=== PATIENT | female | born 1990 | race African-American/Black ===

== ENCOUNTER 2022-07-20 17:54 | Emergency (ER) | payer OTHER, SELFPAY ==
--- NOTE | ~2022-07-20 | XR_ITS ---
EXAMINATION: XR chest 2V Exam Date/Time: 07/20/2022 18:30 CDT HISTORY: cp Comparison: None available. RESULT: Lines, tubes, and devices: None. Lungs and pleura: Linear scar/atelectasis in the left lower lung. Calcified granuloma in the right l ower lung. Cardiomediastinal silhouette: Unremarkable. Other: No acute osseous or upper abdominal finding. IMPRESSION: No acute cardiopulmonary process. Reviewed, dictated and finalized at location K.
--- NOTE | 2022-07-20 17:57 | ECG_ITS ---
Measurements Intervals [place] Rate: 60 P: 38 LA: 178 QRS: 19 QRSD: 88 T: 24 QT: 386 QTc: 386 Interpretive Statements SINUS RHYTHM WITH SINUS ARRHYTHMIA NO PREVIOUS ECG AVAILABLE FOR COMPARISON Electronically Signed On 07-21-2022 17:59:12 CDT by Felipe Anna M.D.
[2022-07-20 18:04] VITALS: BP 138/92; PULSE 64; RESP 18; TEMP 36.6; O2SAT 100
[2022-07-20 18:21] LABS: Basophils Percent Auto 0.3 % (0.2-1.2); Eosinophils Absolute Auto 0.3 K/mm3 (0-0.3); Eosinophils Percent Auto 3.4 % (0-4.4); Hematocrit 32.5 % (37.0-47.0); Hemoglobin 11.4 g/dL (12.0-15.0); Immature Granulocyte Absolute 0.05 K/mm3 (0.00-0.031); Immature Granulocyte Percent A 0.5 % (0-0.5); Lymphocytes Absolute Auto 2.35 K/mm3 (0.9-3.2); Lymphocytes Percent Auto 24.4 % (18.3-44.2); Mean Corpuscular HGB Conc 35.1 g/dl (32-36); Mean Corpuscular Hemoglobin 30.3 pg (26-34); Mean Corpuscular Volume 86.4 fl (80-100); Mean Platelet Volume 10.8 fl (7.4-10.4); Monocytes Absolute Auto 0.6 K/mm3 (0.1-0.6); Monocytes Percent Auto 6.1 % (2.6-8.5); Neutrophils Absolute Auto 6.3 K/mm3 (1.3-6.7); Neutrophils Percent Auto 65.3 % (45.5-73.1); Platelet Count Result 253 k/mm3 (150-375); Red Blood Count 3.76 M/mm3 (4.2-5.4); Red Cell Distribution Width 15.8 % (11.5-14.5); White Blood Count 9.6 K/mm3 (4.5-10.0)
[2022-07-20 18:32] LABS: INR 1.2; Prothrombin Time 14.2 Seconds (11.1-14.7)
[2022-07-20 18:33] LABS: Partial Thromboplastin Time 33.2 SECONDS (22.3-36.8)
[2022-07-20 18:36] LABS: Alanine Aminotransferase 12 U/L (6-35); Alkaline Phosphatase 78 U/L (38-126); Anion Gap 3 mmol/L (8-16); Aspartate Amino Transferase 21 U/L (14-36); Bilirubin,Total 0.7 mg/dL (0.2-1.3); Blood Urea Nitrogen 7 mg/dL (7-17); Calcium 8.5 mg/dL (8.4-10.2); Carbon Dioxide 30 mmol/L (22-30); Chloride 104 mmol/L (98-107); Estimated CRCL calculation 178 ml/min; Estimated Glomerular Filt Rate > 60; Glucose 91 mg/dL (65-110); Lipase 114 U/L (23-300); Sodium 137 mmol/L (137-145)
[2022-07-20 18:50] LABS: Troponin I < 0.012 ng/mL (0.000-0.034)
--- NOTE | 2022-07-20 19:04 | ED.CHESTPAIN ---
HPI - Chest Pain General Chief Complaint: Chest Pain Stated Complaint: chest pain Time Seen by Provider: 07/20/22 18:17 Source: patient Mode of arrival: ambulatory Limitations: no limitations History of Present Illness HPI narrative: 31-year-old otherwise healthy here with complaints of epigastric pain for last 2 to 3 days. She states its constant in nature nonradiating. She denies any shortness of breath, cough, nausea or vomiting. MD complaint: chest pain Onset (ago): day(s) (2) Timing of current episode: constant Pain location: epigastric Pain radiation: none Quality: aching Exacerbating factors: nothing Treatment prior to arrival: none Related Data Allergies Allergy/AdvReac Type Severity Reaction Status Date / Time Penicillins Allergy Hives Verified 07/20/22 18:22 Review of Systems Review of Systems: All systems reviewed & are unremarkable except as noted in HPI and below Constitutional: Constitutional: Reports no additional constitutional complaints Eyes: Eyes: Reports no additional eye complaints ENT: Reports system reviewed and no additional complaints, except as documented Cardiovascular: Cardiovascular: Reports as per HPI Respiratory: Respiratory: Reports no additional respiratory complaints Gastrointestinal: Gastrointestinal: Reports as per HPI Musculoskeletal: Musculoskeletal: Reports no additional musculoskeletal complaints Integumentary/Breasts: Skin/Breast: Reports system reviewed and no additional complaints, except as docu Neurologic: Reports system reviewed and no additional complaints, except as documented Exam Narrative: GENERAL: Well-appearing, well-nourished, and in no acute distress. HEAD: Normocephalic, atraumatic. EYES: PERRLA and EOMI. NECK: Supple. CHEST: Clear to auscultation. No respiratory distress. HEART: Regular rate and rhythm. No murmur heard. Normal peripheral pulses. ABDOMEN: Soft, mild epigastric tenderness, nondistended, normal active bowel sounds. EXTREMITIES: Normal range of motion. No edema. SKIN: Warm, dry, no rash. NEURO: No focal deficits. Alert and oriented x3. PSYCH: Normal mood and affect. Course Vital Signs Vital signs: Vital Signs Temperature 36.6 C 07/20/22 18:04 Pulse Rate 64 07/20/22 18:04 Respiratory Rate 18 07/20/22 18:04 Blood Pressure 138/92 H 07/20/22 18:04 Pulse Oximetry 100 07/20/22 18:04 Oxygen Delivery Room Air 07/20/22 18:04 Temperature 36.6 C 07/20/22 18:04 Pulse Rate 64 07/20/22 18:04 Respiratory Rate 18 07/20/22 18:04 Blood Pressure 138/92 H 07/20/22 18:04 Pulse Oximetry 100 07/20/22 18:04 Oxygen Delivery Room Air 07/20/22 18:04 MDM - Chest Pain Lab Data 07/20/22 18:13 07/20/22 18:13 Labs: Lab Results 07/20/22 07/20/22 07/20/22 Range/Units 18:13 18:13 18:13 WBC 9.6 (4.5-10.0) K/mm3 RBC 3.76 L (4.2-5.4) M/mm3 Hgb 11.4 L (12.0-15.0) g/dL Hct 32.5 L (37.0-47.0) % MCV 86.4 (80-100) fl MCH 30.3 (26-34) pg MCHC 35.1 (32-36) g/dl RDW 15.8 H (11.5-14.5) % Plt Count 253 (150-375) k/mm3 MPV 10.8 H (7.4-10.4) fl Immature Gran % (Auto) 0.5 (0-0.5) % Neut % (Auto) 65.3 (45.5-73.1) % Lymph % (Auto) 24.4 (18.3-44.2) % [place] % (Auto) 6.1 (2.6-8.5) % Eos % (Auto) 3.4 (0-4.4) % Baso % (Auto) 0.3 (0.2-1.2) % Lymph # (Auto) 2.35 (0.9-3.2) K/mm3 [place] # (Auto) 0.6 (0.1-0.6) K/mm3 Eos # (Auto) 0.3 (0-0.3) K/mm3 Baso # (Auto) 0.0 (0.0-0.1) K/mm3 Abs Immat Gran (auto) 0.05 H (0.00-0.031) K/mm3 Absolute Neuts (auto) 6.3 (1.3-6.7) K/mm3 Absolute Nucleated RBC 0.0 (0.0-0.012) K/mm3 Nucleated RBC % 0.0 (0.0-0.2) % PT 14.2 (11.1-14.7) Seconds INR 1.2 APTT 33.2 (22.3-36.8) SECONDS Sodium 137 (137-145) mmol/L Potassium 4.0 (3.4-5.0) mmol/L Chloride 104 (98-107) mmol/L Carbon Dioxide 30 (22-30) mmol/L Anion Gap 3 L
[2022-07-20 19:22] VITALS: BP 129/85; PULSE 65; RESP 20; TEMP 37.1; O2SAT 100
== END 2022-07-20 19:42 | disposition home or self-care (01) ==
LOC: ANHED 19:36
PROVIDERS: Emergency Medicine; Emergency Provider Family Medicine
DX: R07.9 Chest pain, unspecified (principal); R10.13 Epigastric pain
CPT/HCPCS: 36415; 71046; 80053; 83690; 84484; 85025; 85610; 85730; 93005; 99284

== ENCOUNTER 2023-11-30 18:24 | Observation (INO) | payer OTHER, SELFPAY ==
[2023-11-30] VITALS (18 sets, daily range): BP systolic 111–134; BP diastolic 74–85; PULSE 86–100; O2SAT 99–100; BMI 37.6
--- NOTE | 2023-11-30 18:24 | PC.NURSE ---
Pt arrives to unit from the ED with cramping, abdominal and pelvic pain.
--- NOTE | 2023-11-30 19:04 | OBADM ---
This patient, Elizabeth Jain, admitted to the OB room OB Post 116 for observation. Patient/family oriented to hospital policies and general routines including ID bracelet, bed and alarms, visiting hours, pain management, procedures, bathroom and other care routines, personal items, smoking policy, room service/diet, and visiting hours. Patient/Family are encouraged to report perceived risks to care and to ask questions if they do not understand what they are told or what they should do.
[2023-11-30 19:19] LABS: Add Urine Microscopic? YES; Appearance Urine Clear (Clear); Bacteria Urine Rare /hpf; Bilirubin Urine Negative (Negative); Blood Urine Negative (Negative); Color Urine Yellow (Yellow); Glucose Urine UA Negative (Negative); Ketones Urine Negative (Negative); Leukocyte Esterase Ur 3+ LEU/UL (Negative); Nitrate Urine Negative (Negative); Non Pathogenic Casts 0-2; Protein Urine Negative (Negative); RBC Urine 0-2 /hpf (0-2); Specific Grav Ur 1.013 (1.001-1.035); Squamous Epithelial Cell Urine Few /hpf (Few); WBC Urine 21-50 /hpf (0-3); pH Urine 7.5 (5.0-9.0)
--- NOTE | 2023-11-30 20:10 | PC.NURSE ---
Called Dr. Dill, update on pt, cramping, abdominal and pelvic pain of 7, tracing, and vitals. Orders received to discharge pt with instructions to take Tylenol, hydrate, keep next scheduled appointment, and when to return to the unit.
--- NOTE | 2023-11-30 20:34 | PC.NURSE ---
Pt discharged with instructions to take Tylenol, hydrate, keep next scheduled appointment, and when to return to the unit, pt verbalizes understanding.
--- NOTE | 2023-12-01 08:30 | P.PNOB_ITS ---
OB - Triage/Final Diagnosis Visit Information Date of evaluation: 11/30/23 Reason for evaluation: threatened labor Comments/Additional reasons for admission: I have assessed the risk for this patient, Elizabeth Jain, and determined that she would benefit from observation care. Evaluation Laboratory results: Laboratory Tests 11/30/23 19:05 Urine Color Yellow Urine Appearance Clear Urine pH 7.5 Ur Specific [place] 1.013 Urine Protein Negative Urine Glucose (UA) Negative Urine Ketones Negative Ur Blood (Man) Negative Urine Nitrate Negative Urine Bilirubin Negative Urine Urobilinogen 2.0 H Leukocyte Esterase Rfl 3+ H Urine RBC 0-2 Urine WBC 21-50 H Ur Squamous Epith Cells Few Urine Bacteria Rare Urine Casts 0-2 Vital signs: Vital Signs - 24 hr 11/30/23 18:50 11/30/23 19:00 11/30/23 19:03 Pulse Rate 89 86 Blood Pressure 134/85 123/75 Blood Pressure [Left Arm] Pulse Oximetry 99 Oxygen Delivery 11/30/23 19:08 11/30/23 19:18 11/30/23 19:19 Pulse Rate 93 Blood Pressure 111/74 Blood Pressure [Left Arm] Pulse Oximetry 100 99 Oxygen Delivery 11/30/23 19:23 11/30/23 19:28 11/30/23 19:33 Pulse Rate Blood Pressure Blood Pressure [Left Arm] Pulse Oximetry 99 100 100 Oxygen Delivery 11/30/23 19:38 11/30/23 19:43 11/30/23 19:48 Pulse Rate Blood Pressure Blood Pressure [Left Arm] Pulse Oximetry 99 99 100 Oxygen Delivery 11/30/23 19:53 11/30/23 19:58 11/30/23 20:03 Pulse Rate Blood Pressure Blood Pressure [Left Arm] Pulse Oximetry 99 99 100 Oxygen Delivery 11/30/23 20:08 11/30/23 20:13 11/30/23 19:01 Pulse Rate Blood Pressure Blood Pressure [Left Arm] Pulse Oximetry 100 100 Oxygen Delivery Room Air 11/30/23 20:16 Pulse Rate 97 Blood Pressure Blood Pressure [Left Arm] 134/85 Pulse Oximetry Oxygen Delivery
== END 2023-11-30 20:34 | disposition home or self-care (01) ==
PROVIDERS: Admitting Provider Student in an Organized Health Care Education/Training Program; Visit Provider Student in an Organized Health Care Education/Training Program
DX: O47.9 False labor, unspecified (principal)
CPT/HCPCS: 59025; 81001; 87086; G0378; G0379

== ENCOUNTER 2023-12-30 13:00 | Emergency (ER) | payer OTHER, SELFPAY ==
[2023-12-30 13:01] VITALS: BP 113/72; PULSE 79; RESP 22; TEMP 36.4; O2SAT 100
== END 2023-12-30 13:01 | disposition left against medical advice (07) ==
DX: K08.89 Other specified disorders of teeth and supporting structures (principal)
CPT/HCPCS: 99199

== ENCOUNTER 2024-02-18 13:24 | Inpatient (IN) | payer OTHER, SELFPAY ==
[2024-02-18] VITALS (63 sets, daily range): BP systolic 71–163; BP diastolic 40–131; PULSE 59–106; RESP 16; TEMP 36.2–36.8; O2SAT 97–100; BMI 38.7
[2024-02-18 14:06] LABS: Basophils Percent Auto 0.2 % (0.2-1.2); Eosinophils Absolute Auto 0.2 K/mm3 (0-0.3); Eosinophils Percent Auto 1.5 % (0-4.4); Hematocrit 29.8 % (37.0-47.0); Hemoglobin 10.3 g/dL (12.0-15.0); Immature Granulocyte Absolute 0.08 K/mm3 (0.00-0.031); Immature Granulocyte Percent A 0.7 % (0-0.5); Lymphocytes Absolute Auto 2.05 K/mm3 (0.9-3.2); Lymphocytes Percent Auto 18.8 % (18.3-44.2); Mean Corpuscular HGB Conc 34.6 g/dl (32-36); Mean Corpuscular Hemoglobin 28.9 pg (26-34); Mean Corpuscular Volume 83.7 fl (80-100); Mean Platelet Volume 12.3 fl (7.4-10.4); Monocytes Absolute Auto 0.6 K/mm3 (0.1-0.6); Monocytes Percent Auto 5.9 % (2.6-8.5); Neutrophils Absolute Auto 7.9 K/mm3 (1.3-6.7); Neutrophils Percent Auto 72.9 % (45.5-73.1); Platelet Count Result 133 k/mm3 (150-375); Red Blood Count 3.56 M/mm3 (4.2-5.4); Red Cell Distribution Width 16.2 % (11.5-14.5); White Blood Count 10.9 K/mm3 (4.5-10.0)
[2024-02-18] MEDS: ceFAZolin 2 GM/D5W 50 ML 2 GM/50 ML BAG IVPB (14:08)
--- NOTE | 2024-02-18 14:10 | LDADM ---
This patient, Elizabeth Jain, was admitted to Labor/Delivery/Recovery 105 on 02/18/24 at 13:24. Plans for labor, pain management and were discussed with patient. Patient/family oriented to hospital policies and general routines including ID bracelet, bed and alarms, visiting hours, pain management, procedures, bathroom and other care routines, personal items, smoking policy, room service/diet and guest tray routines, infant security routines, and visiting hours. Patient/Family are encouraged to report perceived risks to care and to ask questions if they do not understand what they are told or what they should do. See [facility]BI[facility] for further documentation.
[2024-02-18 14:23] LABS: Amphetamine Screen Urine Negative (Negative); Barbiturate Screen Urine Negative (Negative); Benzodiazepines Screen Urine Negative (Negative); Cannabinoid Screen Urine Negative (Negative); Cocaine Screen Urine Negative (Negative); Methadone Screen Urine Negative (Negative); Opiate Screen Urine Negative (Negative); Phencyclidine Screen Urine Negative (Negative)
[2024-02-18 14:37] LABS: Rapid Plasma Reagin Non-Reactive (NonReactive)
[2024-02-18 14:50] LABS: Hepatitis B Surface Antigen Negative (Negative)
[2024-02-18 14:53] LABS: HIV 1/2 Ab P24 Ag Result Negative (Negative)
--- NOTE | 2024-02-18 14:54 | P.PNAN_ITS ---
Anes - Eval Pre Procedure Procedure: Labor epidural Date/Time: 02/18/24 14:54 Surgeon: Brown Preop Diagnosis: Pain during labor Pre Op Diagnosis: Contractions Patient Data Age: 33 Gender: F Height: 1.7 m Weight: 112 kg Last Vital Signs Pulse 82 02/18/24 14:46 BP 135/112 H 02/18/24 14:46 O2 Del Method Room Air 02/18/24 14:10 Allergies Allergy/AdvReac Type Severity Reaction Status Date / Time Penicillins Allergy Hives Verified 07/20/22 18:22 Home Medications Medication Instructions Recorded Confirmed Type esomeprazole magnesium 40 mg 40 mg PO DAILY #14 caps 07/20/22 02/18/24 Rx capsule,delayed release (Nexium) Laboratory Tests 02/18/24 02/18/24 13:51 13:52 WBC 10.9 H K/mm3 (4.5-10.0) RBC 3.56 L M/mm3 (4.2-5.4) Hgb 10.3 L g/dL (12.0-15.0) Hct 29.8 L % (37.0-47.0) MCV 83.7 fl (80-100) MCH 28.9 pg (26-34) MCHC 34.6 g/dl (32-36) RDW 16.2 H % (11.5-14.5) Plt Count 133 L k/mm3 (150-375) MPV 12.3 H fl (7.4-10.4) Immature Gran % (Auto) 0.7 H % (0-0.5) Neut % (Auto) 72.9 % (45.5-73.1) Lymph % (Auto) 18.8 % (18.3-44.2) [place] % (Auto) 5.9 % (2.6-8.5) Eos % (Auto) 1.5 % (0-4.4) Baso % (Auto) 0.2 % (0.2-1.2) Lymph # (Auto) 2.05 K/mm3 (0.9-3.2) [place] # (Auto) 0.6 K/mm3 (0.1-0.6) Eos # (Auto) 0.2 K/mm3 (0-0.3) Baso # (Auto) 0.0 K/mm3 (0.0-0.1) Abs Immat Gran (auto) 0.08 H K/mm3 (0.00-0.031) Absolute Neuts (auto) 7.9 H K/mm3 (1.3-6.7) Absolute Nucleated RBC 0.000 K/mm3 (0.0-0.012) Nucleated RBC % 0.0 % (0.0-0.2) Urine Opiates Screen Negative (Negative) Urine Methadone Screen Negative (Negative) Ur Barbiturates Screen Negative (Negative) Ur Phencyclidine Scrn Negative (Negative) Ur Amphetamine Screen Negative (Negative) U Benzodiazepines Scrn Negative (Negative) Urine Cocaine Screen Negative (Negative) U Cannabinoids Screen Negative (Negative) RPR Non-reactive (NonReactive) Hep Bs Antigen Negative (Negative) HIV 1&2 Ab/P24 Ag 4thGn Negative (Negative) Blood Type O Positive Antibody Screen Negative Patient hx anesthesia problems: none Family hx anesthesia problems: none Results Review: All pre-operative results and documents have been reviewed as part of the pre- operative evaluation. [facility] Social History Social History Smoking status: Never smoker Substance use: never Do You Feel Safe in your Home?: Yes Lack of Transportation: No Lack of Food: Never True Current Housing: I Have Housing Concerned About Future Housing: No Difficulty Paying Gas/Electric Bills: No Difficulty Paying for Meds: No Currently Unemployed: No Education: Grade School Difficulty w/ Childcare or Family Care: No Spiritual care concerns: No Exam Day of Procedure 02/18/24 14:54 Patient weight: obese Heart: regular rate and rhythm Lungs: clear to auscultation Airway: Mallampati scale class II Neurological: alert and oriented
--- NOTE | 2024-02-18 15:14 | PM.IMHP ---
H&P: HPI History of Present Illness Date/Time: 02/18/24 15:14 Chief Complaint: contractions Narrative: Elizabeth is a 33yo @ 39.5wks who presented to L&D with painful and regular contractions. She was found to be 6-7cm on arrival and requesting epidural. She has had regular care in [place]. Her is complicated by: - GBS positive - HSV; denies lesions, has been on acyclovir Review of Systems Constitutional: Constitutional: Denies chills, Denies fever(s) and Denies headache(s) Eyes: Eyes: Denies change in vision ENT: Denies headache(s) Cardiovascular: Cardiovascular: Denies chest pain and Denies dyspnea Respiratory: Respiratory: Denies dyspnea Genitourinary: Genitourinary: Denies abnormal vaginal bleeding and Denies vaginal discharge Neurologic: Denies headache(s) Psychiatric: Psychiatric: Denies anxiety and Denies depression [facility] Social History Social History Smoking status: Never smoker Substance use: never Do You Feel Safe in your Home?: Yes Lack of Transportation: No Lack of Food: Never True Current Housing: I Have Housing Concerned About Future Housing: No Difficulty Paying Gas/Electric Bills: No Difficulty Paying for Meds: No Currently Unemployed: No Education: Grade School Difficulty w/ Childcare or Family Care: No Spiritual care concerns: No Meds Home Medications and Allergies Home Medications Medication Instructions Recorded Confirmed Type esomeprazole magnesium 40 mg 40 mg PO DAILY #14 caps 07/20/22 02/18/24 Rx capsule,delayed release (Nexium) Allergies Allergy/AdvReac Type Severity Reaction Status Date / Time Penicillins Allergy Hives Verified 07/20/22 18:22 Vital Signs Vital Signs - 24 hr 02/18/24 13:45 02/18/24 13:46 02/18/24 14:00 Pulse Rate 83 89 82 Blood Pressure 125/85 113/84 131/90 Pulse Oximetry Oxygen Delivery 02/18/24 14:15 02/18/24 14:31 02/18/24 14:46 Pulse Rate 86 74 82 Blood Pressure 119/90 129/86 135/112 H Pulse Oximetry Oxygen Delivery 02/18/24 15:01 02/18/24 15:05 02/18/24 15:06 Pulse Rate 78 96 Blood Pressure 163/131 H 162/129 H Pulse Oximetry 100 Oxygen Delivery 02/18/24 15:08 02/18/24 15:09 02/18/24 15:10 Pulse Rate 96 90 Blood Pressure 122/82 124/82 Pulse Oximetry 99 100 Oxygen Delivery 02/18/24 15:13 02/18/24 14:10 Pulse Rate 85 Blood Pressure 118/64 Pulse Oximetry Oxygen Delivery Room Air Exam Const: General: cooperative, no acute distress and obese Nutritional Appearance: obese Orientation/consciousness: patient oriented x3 Resp: Effort & Inspection: normal respiratory effort Cardio: Rate: regular rate GI: GI Palp: No abdominal tenderness : Other: FHT's: 150's/ mod helen/ + accels/ occasional mild variable decels - cat 2, but reassuring TOCO: ctxs q3min Cervix: 8/80/-1 Membranes: arom, clear 1535 Presentation: cephalic Skin: General skin exam: normal color Neuro: General: patient oriented x3 Extrem: General: normal to inspection Psych: Appearance: grossly normal Affect: normal affect Attitude: cooperative H&P: Results Labs Labs: Short CBC 02/18/24 Range/Units 13:51 WBC 10.9 H (4.5-10.0) K/mm3 Hgb 10.3 L (12.0-15.0) g/dL Hct 29.8 L (37.0-47.0) % Plt Count 133 L (150-375) k/mm3 Assessment and Plan Assessment and plan (1) Active labor at term: Status: Acute (2) GBS (group B Streptococcus carrier), +RV culture, currently : Code(s): O99.820 - Streptococcus B carrier state complicating Status: Acute Plan - Admitted to L&D in active labor at term - Labs ordered/reviewed - s/p epidural and now more comfortable - Ancef for GBS - AROM performed, will start low dose pitocin augmentation - Anticipate soon
[2024-02-18] MEDS: LACTATED RINGERS 1,000 ML 125 ML IV CONT (15:36)
[2024-02-18] MEDS: OXYTOCIN 30 UNITS/NS 500 ML 30 UNITS/500 ML BAG IV CONT (15:42)
--- NOTE | 2024-02-18 16:42 | PM.OBPRVD ---
OB - Vaginal Delivery Note Procedure Delivery date: 02/18/24 Events: Positive Group B Strep (GBS) Delivery augmentation: Rupture of Membranes and Pitocin Delivery monitor: External FHT and External Uterine Route of delivery: Episiotomy description: None Laceration Description: None Specimen: No Quantitative Blood Loss (ml): 100 Anesthesia type: Epidural Disposition: Floor Complications: No immediate complications Baby Date of : 02/18/24 Time of : 16:27 Gestational Age by Date: 39 (.5) Infant gender: Female Weight (pounds): 8 Weight (ounces): 3 presentation: vertex position: Right Occiput Anterior Placenta delivery description: Expressed Cord Vessel Description: 3 Vessels and Clamped/Cut score one minute: 8 score five minutes: 9 Narrative: Elizabeth progressed to complete dilation with strong desire to push. She pushed for approximately 10-15 minutes with good maternal effort. She delivered the head over intact perineum. No nuchal cord was palpated. She easily delivered the 's shoulders and body without complication. The was placed skin to skin but short cord was noted therefore the umbilical cord was then doubly clamped and cut. She was stimulated and cry was heard. She was taken over to the warmer per mom's request. A segment of cord was collected for cord gases. The remaining cord blood was collected for typing. With Pitocin running and gentle downward traction on the cord, the placenta delivered without complication. Bimanual massage was performed and good uterine tone with minimal bleeding was noted. She was examined and no lacerations were identified. She remained firm with minimal bleeding. Sponge, lap, instrument, and needle counts were correct at the end of the procedure. Mom and baby were left bonding in the birthing suite in stable condition.
[2024-02-18] MEDS: OXYTOCIN 30 UNITS/NS 500 ML 30 UNITS/500 ML BAG 125 UNITS IV CONT (17:18)
[2024-02-18] MEDS: WITCH HAZEL 40 PADS 1 PAD TOPICAL (18:45)
[2024-02-18] MEDS: BENZOCAINE 20% AER SPR (*SP) 56 GM CAN 1 SPRAY TOPICAL (18:45)
[2024-02-18] MEDS: IBUPROFEN 600 MG TABLET PO (20:31)
[2024-02-18] MEDS: ACETAMINOPHEN 325 MG TABLET 650 MG PO (20:31)
--- NOTE | 2024-02-18 22:47 | OBPPTRN ---
02/18/2024 at 1945 Patient transferred in wheelchair to post room #286. Support person present. Patient an her significant other oriented to unit, room, information board, rooming in, admission packet and security measures. Patient verbalizes understanding.
[2024-02-19] MEDS: ACETAMINOPHEN 325 MG TABLET 650 MG PO ×4 (01:59→23:38)
[2024-02-19] MEDS: IBUPROFEN 600 MG TABLET PO ×4 (02:00→23:38)
[2024-02-19 05:19] LABS: Hemoglobin 9.7 g/dL (12.0-15.0); Mean Corpuscular HGB Conc 33.4 g/dl (32-36); Mean Corpuscular Volume 83.6 fl (80-100); Mean Platelet Volume 12.7 fl (7.4-10.4); Platelet Count Result 123 k/mm3 (150-375); Red Blood Count 3.47 M/mm3 (4.2-5.4); White Blood Count 13.7 K/mm3 (4.5-10.0)
[2024-02-19 07:30] VITALS: BP 120/80; PULSE 66; RESP 16; TEMP 36.4; O2SAT 99
[2024-02-19] MEDS: POLYSACCHARIDE IRON COMPLEX 150 MG CAPSULE PO ×2 (07:40→17:09)
[2024-02-19] MEDS: DOCUSATE SODIUM 100 MG CAPSULE PO ×2 (07:40→17:09)
--- NOTE | 2024-02-19 08:55 | P.PNOB_ITS ---
OB - PN: Subj Subjective Date/time seen: 02/19/24 08:55 Narrative: PPD#1 Elizabeth reports doing well today. Her bleeding is cutter aluminum sheet. Her pain is controlled. She is tolerating regular diet, voiding, passing gas, and ambulating without issues. She is breast and bottle feeding. OB - PN: Obj Data Labs 02/19/24 05:09 Labs: Laboratory Results - last 24 hr 02/18/24 02/18/24 02/19/24 13:51 13:52 05:09 WBC 10.9 H 13.7 H RBC 3.56 L 3.47 L Hgb 10.3 L 9.7 L Hct 29.8 L 29.0 L MCV 83.7 83.6 MCH 28.9 28.0 MCHC 34.6 33.4 RDW 16.2 H 16.0 H Plt Count 133 L 123 L MPV 12.3 H 12.7 H Immature Gran % (Auto) 0.7 H Neut % (Auto) 72.9 Lymph % (Auto) 18.8 [place] % (Auto) 5.9 Eos % (Auto) 1.5 Baso % (Auto) 0.2 Lymph # (Auto) 2.05 [place] # (Auto) 0.6 Eos # (Auto) 0.2 Baso # (Auto) 0.0 Abs Immat Gran (auto) 0.08 H Absolute Neuts (auto) 7.9 H Absolute Nucleated RBC 0.000 Nucleated RBC % 0.0 Urine Opiates Screen Negative Urine Methadone Screen Negative Ur Barbiturates Screen Negative Ur Phencyclidine Scrn Negative Ur Amphetamine Screen Negative U Benzodiazepines Scrn Negative Urine Cocaine Screen Negative U Cannabinoids Screen Negative RPR Non-reactive Hep Bs Antigen Negative HIV 1&2 Ab/P24 Ag 4thGn Negative Blood Type O Positive Antibody Screen Negative OB - PN A/P Assessment and Plan (1) Normal vaginal delivery: Code(s): O80 - Encounter for full-term uncomplicated delivery Status: Acute Plan day: 1 Plan: routine care Comments: - Venofer 300mg IV once - PO pain meds - Regular diet - Ambulation and hydration encouraged - Pump or put baby to breast q2-3h Time Spent With Patient Time: Total time spent is greater than 50% in coordination of care (as documented) at patient's floor/unit and/or counseling patient: Review of Systems Constitutional: Constitutional: Denies chills, Denies fever(s) and Denies headache(s) Eyes: Eyes: Denies change in vision ENT: Denies dizziness and Denies headache(s) Cardiovascular: Cardiovascular: Denies chest pain, Denies palpitations and Denies dyspnea Respiratory: Respiratory: Denies cough and Denies dyspnea Gastrointestinal: Gastrointestinal: Denies nausea and Denies vomiting Neurologic: Denies dizziness and Denies headache(s) Endocrine: Endocrine: Denies palpitations Exam Const: General: cooperative, comfortable and no acute distress Orientation/consciousness: patient oriented x3 Resp: Effort & Inspection: normal respiratory effort Auscultation: clear to auscultation bilaterally Cardio: Rate: regular rate GI: Inspection: non-distended GI Palp: No abdominal tenderness and Yes Soft to palpation Auscultation: normal bowel sounds : Other: fundus firm Skin: General skin exam: normal color Neuro: General: patient oriented x3 Extrem: General: normal to inspection Psych: Appearance: grossly normal Affect: normal affect Attitude: cooperative
[2024-02-19] MEDS: PANTOPRAZOLE 40 MG TABLET PO (09:46)
[2024-02-19] MEDS: IRON SUCROSE COMPLEX 200 MG, IRON SUCROSE COMPLEX 100 MG in SODIUM CHLORIDE 0.9% IV 250 ML 176.67 MG IVPB (11:18)
--- NOTE | 2024-02-19 12:42 | WPDANLDPN2 ---
Anes-Prog Note L&D Date/Time: 02/19/24 12:42 Comfortable throughout: labor and delivery Neuraxial method: epidural Epidural/Spinal procedure site: clean & non-tender Neuro status: Neuro function grossly intact. Cardiovascular status: normal Respiratory status: normal Airway patency: baseline Mental status: baseline Post-Op hydration status: normal Vital Signs: Last Vital Signs Temp 36.4 C 02/19/24 07:30 Pulse 66 02/19/24 07:30 Resp 16 02/19/24 07:30 BP 120/80 02/19/24 07:30 Pulse Ox 99 02/19/24 07:30 O2 Del Method Room Air 02/19/24 07:30 Pain score (VAS): 0/10 I/O: Intake & Output 02/18/24 02/19/24 02/19/24 23:59 07:59 15:59 Output Total 100 Balance -100 Post-procedural complaints: none Patient feedback: Patient satisfied with anesthetic care.
--- NOTE | 2024-02-19 13:39 | PC.NURSE ---
Pt states that the IV is hurting and she wants to get in the shower. Iron stopped and IV saline locked. IV taped so pt can shower, will try to restart Iron after her shower
[2024-02-19 18:50] VITALS: BP 116/80; PULSE 71; RESP 14; TEMP 36.3; O2SAT 100
[2024-02-20] MEDS: IBUPROFEN 600 MG TABLET PO (07:23)
[2024-02-20] MEDS: ACETAMINOPHEN 325 MG TABLET 650 MG PO (07:23)
[2024-02-20] MEDS: PANTOPRAZOLE 40 MG TABLET PO (07:25)
[2024-02-20] MEDS: POLYSACCHARIDE IRON COMPLEX 150 MG CAPSULE PO (07:25)
[2024-02-20] MEDS: MULTIVIT/MIN/PREN/FOL AC/IRON TABLET 1 TAB PO (07:25)
[2024-02-20 07:50] VITALS: BP 118/77; PULSE 67; RESP 16; TEMP 36.6; O2SAT 100
--- NOTE | 2024-02-20 10:23 | P.DS_ITS ---
DS: Admitting Diagnosis Discharge Date 02/20/24 Admitting Diagnosis Active labor at term GBS DS: Discharge Diagnosis Discharge Diagnosis (1) Normal vaginal delivery: Code(s): O80 - Encounter for full-term uncomplicated delivery Status: Acute OB - DS: Summary OB Procedures : Ultrasound OB Procedures Intrapartum: Spontaneous Vag Delivery OB Procedures: : None Peripartum Data Infant Delivery Method: Natural Vaginal Laceration Description: None Episiotomy description: None complications: none 1: Gender: Female Disposition of : home Status at Discharge Functional status at discharge: independent ambulation Overall status at discharge: patient is back to baseline Time Spent with Patient Time attestation: Total time spent providing and/or coordinating discharge services: Exam Const: General: cooperative, comfortable and no acute distress Nutritional Appearance: obese Orientation/consciousness: patient oriented x3 Resp: Effort & Inspection: normal respiratory effort Auscultation: clear to auscultation bilaterally Cardio: Rate: regular rate GI: Inspection: non-distended GI Palp: No abdominal tenderness and Yes Soft to palpation Auscultation: normal bowel sounds : Other: fundus firm Skin: General skin exam: normal color Neuro: General: patient oriented x3 Extrem: General: normal to inspection Psych: Appearance: grossly normal Affect: normal affect Attitude: cooperative DS: Data Data Completed and Pending Labs on day of discharge: Labs from last 24 hours 02/19/24 05:09 WBC 13.7 H RBC 3.47 L Hgb 9.7 L Hct 29.0 L MCV 83.6 MCH 28.0 MCHC 33.4 RDW 16.0 H Plt Count 123 L MPV 12.7 H Discharge Plan Discharge Attending physician on discharge: Antonia Dasilva Discharging Clinician: Antonia Dasilva Anticipated Discharge Date/Time: 02/20/24 11:00 Patient Disposition: Home, Self-Care Activity: may shower and pelvic rest Diet: regular Discharge Instructions: Education: Mom and Baby Guide Given to: Follow-Up: Call your delivering provider's office for an appointment to be seen in: Mom and baby should come to the [facility] for the follow-up appointment. Appointment Date/Time: at What to expect at your follow-up visit: Call [phone] if you are unable to keep your appointment time. BREAST CARE: * Wear a snug supportive bra. * For engorgement discomfort: Breast Feeding: * Apply warm moist washcloths * Express milk as needed to relieve engorgement * Wear loose clothing Bottle Feeding: * May apply ice packs * For sore nipples: * Identify correct latch-on * Apply warm moist washcloths before and after nursing * Air dry nipples after nursing * May apply Lansinoh cream to nipples ABDOMINAL INCISION: (if applicable) * Allow incision to air dry * Do NOT use lotions for powders on your incision * When showering, allow soap and water to run over the incision, but do not wash incision EPISIOTOMY/PERINEAL CARE: * Until bleeding stops, use your azar bottle after urinating * Change your pad frequently throughout the day * You may take sitz baths several times a day (fill your bathtub with warm water and soak for 20 minutes.) Do NOT bathe in the water * No tub baths until seen by your physician - You may shower ACTIVITY: * Rest as much as possible. * Do not exercise or lift anything heavier than your baby (such as laundry or other children.) * Avoid stairs or driving as much as possible. * Do not put anything into the vagina. No douching, tampons, or sexual activity until seen by physician. NOTIFY PHYSICIAN IF YOU HAVE ANY QUESTIONS OR IF ANY OF THE FOLLOWING SYMPTOMS OCCUR: * If your episiotomy or incision becomes red, swollen, or more painful than what you have experienced in the hospital. * If your vaginal bleeding becomes foul smelling. * If your vaginal bleeding becomes more heavy than a period or if your bleeding changes from pink to bright red. However, you may pass an occasional walnut- sized clot once or twice for the first week . * If you experience a sharp, shooting pain in you calves. * If you discover a hard, reddened area on your breast or if you experience flu- like symptoms. DIET: * Eat regular, well-balanced meals. * Drink plenty of fluids daily. If , drink to thirst. Patient Instructions: Vaginal Delivery (DC) Stand Alone Forms: General Discharge Information Follow-up/Referrals: Antonia Dasilva MD [Physician] - 4 Weeks Discharge Medications: New acetaminophen 325 mg Tablet 650 mg PO Q6H PRN (Reason: Mild Pain (1-3) Or Headache) Qty: 60 0RF docusate sodium 100 mg Capsule 100 mg PO BID PRN (Reason: Constipation) Qty: 60 0RF ibuprofen 600 mg Tablet 600 mg PO Q6H PRN (Reason: Cramping) Qty: 40 0RF Continued esomeprazole magnesium [Nexium] 40 mg capsule,delayed release(DR/EC) 40 mg PO DAILY Qty: 14 0RF Date of admission: 02/18/24 13:24 Primary Care Provider: UNKNOWN,DOCTOR Admitting Provider: Antonia Dasilva Attending physician on admission: Antonia Dasilva Condition: Stable
--- NOTE | 2024-02-20 12:24 | PC.NURSE ---
1210. Zomee breast pump provided due to moms request. Instructions given on cleaning, care, usage, that there should be no pain, pumping schedule for milk production, collection, and storage of human milk. Patient was assessed for correct placement, flange size, to pump for comfort and nipple stretching/stimulation for adequate milk production every 3 hours (8 times in 24 hours) 1-2 times at night. Parents are encouraged to record the pumping schedule on the feeding sheet.?Mother voiced understanding of the education shared along with mom/baby guide and the pump measurement, flange fit handout for additional resource information. Reported to the Primary RN.
[2024-02-21 10:54] VITALS: BP 125/87; PULSE 70; RESP 18; TEMP 36.8; O2SAT 100
== END 2024-02-20 12:28 | disposition home or self-care (01) | DRG 807 ==
LOC: ANHLDR 16:50 → ANHOB2 20:07
PROVIDERS: Admitting Provider Obstetrics & Gynecology; Visit Provider Obstetrics & Gynecology
DX: O99.824 Streptococcus B carrier state complicating childbirth (principal); Z37.0 Single live birth; Z3A.39 39 weeks gestation of pregnancy
CPT/HCPCS: 36415; 80307; 85025; 85027; 86592; 86703; 86850; 86900; 86901; 87340; A9270; G0432; J0690; J1756; J2590; J2795; J7050; J7120

== ENCOUNTER 2024-02-27 09:41 | Inpatient (IN) | payer OTHER, SELFPAY ==
[2024-02-27] VITALS (40 sets, daily range): BP systolic 132–185; BP diastolic 82–105; PULSE 43–84; RESP 15–19; TEMP 36.4–37.1; O2SAT 86–100
--- NOTE | ~2024-02-27 | CT_ITS ---
CT brain wo con Ordering provider: Ezequiel Reyna MD History: 33 years Female with . Headache, 9 days post . Comparison: None. Technique: CT of the head without contrast. Radiation reduction technique utilized.The dose-length pr oduct was 756.67 mGy-cm. FINDINGS: BRAIN PARENCHYMA AND CSF SPACES: Mild leukoaraiosis and diffuse cortical atrophy. Mild atheromatous d isease. No midline shift, mass effect or hemorrhage. The brain parenchyma and CSF spaces are otherwi se normal. VISUALIZED PARANASAL SINUSES: Well aerated. MASTOIDS: Well aerated. BONES: The bones appear intact. SOFT TISSUES: Visualized nasopharynx is normal. Superficial soft tissues are normal. IMPRESSION: No acute intracranial findings. Reviewed, dictated and finalized at location A. IGHT TOOTH GEAR GENERATOR OPERATOR
--- NOTE | ~2024-02-27 | XR_ITS ---
XR chest 1V portable Ordering provider: Ezequiel Reyna MD History: 33 years Female with . preeclampsia . Comparison: None. FINDINGS: MEDIASTINUM: The cardiac silhouette is slightly enlarged. Prominent both dong. LUNGS: No infiltrates, effusions or pneumothorax. Prominent bronchovascular markings in the lower lob es which may indicate atelectasis. OTHER: No free air under the diaphragm. Degenerative changes of the spine. IMPRESSION: No acute cardiopulmonary pathology. Reviewed, dictated and finalized at location A. LANE FLIGHT ATTENDANT
[2024-02-27 11:59] LABS: Basophils Absolute Auto 0.1 K/mm3 (0.0-0.1); Basophils Percent Auto 0.5 % (0.2-1.2); Eosinophils Absolute Auto 0.4 K/mm3 (0-0.3); Eosinophils Percent Auto 3.4 % (0-4.4); Hematocrit 32.1 % (37.0-47.0); Immature Granulocyte Absolute 0.05 K/mm3 (0.00-0.031); Immature Granulocyte Percent A 0.5 % (0-0.5); Lymphocytes Absolute Auto 2.06 K/mm3 (0.9-3.2); Lymphocytes Percent Auto 19.9 % (18.3-44.2); Mean Corpuscular HGB Conc 34.3 g/dl (32-36); Mean Corpuscular Hemoglobin 28.6 pg (26-34); Mean Corpuscular Volume 83.4 fl (80-100); Mean Platelet Volume 11.5 fl (7.4-10.4); Monocytes Absolute Auto 0.5 K/mm3 (0.1-0.6); Monocytes Percent Auto 5.1 % (2.6-8.5); Neutrophils Absolute Auto 7.3 K/mm3 (1.3-6.7); Neutrophils Percent Auto 70.6 % (45.5-73.1); Platelet Count Result 188 k/mm3 (150-375); Red Blood Count 3.85 M/mm3 (4.2-5.4); Red Cell Distribution Width 16.9 % (11.5-14.5); White Blood Count 10.4 K/mm3 (4.5-10.0)
[2024-02-27 12:10] LABS: Alanine Aminotransferase 17 U/L (6-35); Albumin Level 3.3 g/dL (3.5-5.1); Alkaline Phosphatase 97 U/L (38-126); Anion Gap 4 mmol/L (4-12); Aspartate Amino Transferase 27 U/L (14-36); Bilirubin,Total 0.5 mg/dL (0.2-1.3); Blood Urea Nitrogen 12 mg/dL (7-17); Calcium 8.5 mg/dL (8.4-10.2); Carbon Dioxide 26 mmol/L (22-30); Chloride 107 mmol/L (98-107); Estimated CRCL calculation 130 ml/min; Estimated Glomerular Filt Rate > 60; Glucose 74 mg/dL (65-110); Potassium 4.3 mmol/L (3.4-5.0); Sodium 137 mmol/L (137-145)
[2024-02-27] MEDS: ACETAMINOPHEN 500 MG TABLET 1000 MG PO (12:17)
[2024-02-27] MEDS: PROCHLORPERAZINE EDISYLATE 10 MG/2 ML VIAL IV PUSH (12:17)
[2024-02-27] MEDS: KETOROLAC 15 MG/ML VIAL (*BKC) IV PUSH (12:17)
[2024-02-27] MEDS: LABETALOL HCL INJ 100 MG/20 ML VIAL 20 MG IV PUSH (12:17)
[2024-02-27] MEDS: diphenhydrAMINE HCl INJ 50 MG/ML VIAL 25 MG IV PUSH (12:17)
[2024-02-27 12:25] LABS: Lactate Dehydrogenase 301 U/L (120-246); Uric Acid 6.5 mg/dL (2.5-7.5)
[2024-02-27] MEDS: hydrALAZINE HCL 20 MG/ML VIAL 10 MG IV PUSH (12:59)
[2024-02-27 13:21] LABS: Add Urine Microscopic? YES; Appearance Urine Clear (Clear); Bacteria Urine Rare /hpf; Bilirubin Urine Negative (Negative); Blood Urine 3+ (Negative); Color Urine Yellow (Yellow); Glucose Urine UA Negative (Negative); Ketones Urine Negative (Negative); Leukocyte Esterase Ur 2+ LEU/UL (Negative); Nitrate Urine Negative (Negative); Non Pathogenic Casts 0-2; Protein Urine Negative (Negative); Specific Grav Ur 1.022 (1.001-1.035); Squamous Epithelial Cell Urine Moderate /hpf (Few); pH Urine 5.5 (5.0-9.0)
--- NOTE | 2024-02-27 14:02 | ECG_ITS ---
Test Date: 2024-02-27 14:20:31 Measurements Intervals [place] Rate: 57 P: 26 LA: 184 QRS: 10 QRSD: 91 T: 27 QT: 439 QTc: 431 Interpretive Statements SINUS BRADYCARDIA BORDERLINE ECG No previous ECG available for comparison Electronically Signed On 02-27-2024 14:27:09 SEISMOLOGY TECHNICAL OFFICER by Nile Gallardo D.O.
[2024-02-27] MEDS: MAGNESIUM SULF 4 GM/WATER100ML 4 GM/100 ML BAG IVPB (14:27)
--- NOTE | 2024-02-27 14:39 | ED.GENADULT ---
HPI - General Adult General Chief complaint: Headache Stated complaint: migraine Time Seen by Provider: 02/27/24 11:58 History of Present Illness HPI narrative: this is a 33-year-old female who is 9 days from a spontaneous vaginal delivery presenting for headache and elevated blood pressure. Patient says her headache started 3 days ago. He has a pressure in the top her head. She is says this feels like her typical migraine except worse in intensity. The pain improves when she is walking around and gets worse when she lays flat. She also notes swelling of her ankles that has been going on since delivery. Patient has not had any visual changes, No right upper quadrant abdominal, no difficulty breathing, no loss of consciousness. Patient denies any complications during . She did not have preeclampsia. Related Data Allergies Allergy/AdvReac Type Severity Reaction Status Date / Time Penicillins Allergy Hives Verified 02/27/24 09:49 [facility] Social History Social History Smoking status: Never smoker Substance use: never Do You Feel Safe in your Home?: Yes Lack of Transportation: No Lack of Food: Never True Current Housing: I Have Housing Concerned About Future Housing: No Difficulty Paying Gas/Electric Bills: No Difficulty Paying for Meds: No Currently Unemployed: No Education: Grade School Difficulty w/ Childcare or Family Care: No Spiritual care concerns: No Exam Narrative: APPEARANCE: No apparent distress. Head: atraumatic. EYES: EOMI, NOSE: Atraumatic NECK: Trachea midline RESPIRATORY: No increased rate of breathing, CTAB CARDIOVASCULAR: RRR, ABDOMINAL: Non-distended MUSCULOSKELETAl: No obvious deformities NEURO: Alert. Cranial nerves 2-12 grossly intact. Sensation light touch, motor function cerebellar function intact for 4 extremities. Gait exam was normal. SKIN:: Warm, dry. Normal color PSYCHIATRIC: Normal affect Course Vital Signs Vital signs: Vital Signs Temperature 97.5 F L 02/27/24 09:42 Pulse Rate 62 02/27/24 09:42 Respiratory Rate 15 02/27/24 09:42 Blood Pressure 161/91 H 02/27/24 09:42 Pulse Oximetry 100 02/27/24 09:42 Oxygen Delivery Room Air 02/27/24 09:42 Temperature 97.7 F 02/27/24 11:38 Pulse Rate 57 L 02/27/24 14:30 Respiratory Rate 17 02/27/24 14:30 Blood Pressure 156/105 H 02/27/24 14:30 Pulse Oximetry 96 02/27/24 14:30 Oxygen Delivery Room Air 02/27/24 09:42 Medical Decision Making MDM Narrative Medical decision making narrative: -Course: 33-year-old female presenting with headache and elevated blood pressures in the . Concern for preeclampsia vs migraine with elevated bp. Patient's migraine was treated and although her headache improved her blood pressure did not respond appropriately. Patient was given a dose of labetalol with some improvement. However heart rate was too low to receive another dose. She was then switched to hydralazine with improvement in bp. Workup significant for mildly elevated LDH.. Case was discussed with Dr. Dasilva. Patient has been started on a magnesium drip will be admitted to Labor and delivery for further management. -DDX includes but is not limited to: Migraine, preeclampsia -Co-morbidities complicating care: , migraine -Independent interpretation of studies: white count 10.4, [id number] platelets 188 LDH 301, kidney and liver function normal urine without protein CT head normal Independent EKG interpretation: Rhythm [sinus], Rate 57], [place] -[normal], [place] -[normal], QRS [narrow], QTC [normal], T waves -[negative for concerning inversions], ST Segments - [Negative for concerning elevations] Final interpretations: sinus bradycardia -Discussion of Management/Consultants: Dr. Dasilva -Interventions: Benadryl, Compazine Tylenol, Toradol, labetalol 20 mg, hydralazine 10 mg, magnesium load and drip -Shared decision making / Disposition: admitted Vital Signs Vital Signs: Vital Signs Temperature 97.5 F L 02/27/24 09:42 Pulse Rate 62 02/27/24 09:42 Respiratory Rate 15 02/27/24 09:42 Blood Pressure 161/91 H 02/27/24 09:42 Pulse Oximetry 100 02/27/24 09:42 Oxygen Delivery Room Air 02/27/24 09:42 Temperature 97.7 F 02/27/24 11:38 Pulse Rate 57 L 02/27/24 14:30 Respiratory Rate 17 02/27/24 14:30 Blood Pressure 156/105 H 02/27/24 14:30 Pulse Oximetry 96 11/18/24 14:30 Oxygen Delivery Room Air 02/27/24 09:42 Lab Data 02/27/24 11:54 02/27/24 11:54 Labs: Lab Results 02/27/24 02/27/24 Range/Units 11:54 12:07 WBC 10.4 H (4.5-10.0) K/mm3 RBC 3.85 L (4.2-5.4) M/mm3 Hgb 11.0 L (12.0-15.0) g/dL Hct 32.1 L (37.0-47.0) % MCV 83.4 (80-100) fl MCH 28.6 (26-34) pg MCHC 34.3 (32-36) g/dl RDW 16.9 H (11.5-14.5) % Plt Count 188 D (150-375) k/mm3 MPV 11.5 H (7.4-10.4) fl Immature Gran % (Auto) 0.5 (0-0.5) % Neut % (Auto) 70.6 (45.5-73.1) % Lymph % (Auto) 19.9 (18.3-44.2) % [place] % (Auto) 5.1 (2.6-8.5) % Eos % (Auto) 3.4 (0-4.4) % Baso % (Auto) 0.5 (0.2-1.2) % Lymph # (Auto) 2.06 (0.9-3.2) K/mm3 [place] # (Auto) 0.5 (0.1-0.6) K/mm3 Eos # (Auto) 0.4 H (0-0.3) K/mm3 Baso # (Auto) 0.1 (0.0-0.1) K/mm3 Abs Immat Gran (auto) 0.05 H (0.00-0.031) K/mm3 Absolute Neuts (auto) 7.3 H (1.3-6.7) K/mm3 Absolute Nucleated RBC 0.000 (0.0-0.012) K/mm3 Nucleated RBC % 0.0 (0.0-0.2) % Sodium 137 (137-145) mmol/L Potassium 4.3 (3.4-5.0) mmol/L Chloride 107 (98-107) mmol/L Carbon Dioxide 26 (22-30) mmol/L Anion Gap 4 (4-12) mmol/L BUN 12 D (7-17) mg/dL Creatinine 0.70 (0.7-1.0) mg/dL Estim Creat Clear Calc 130 ml/min Estimated GFR > 60 (59 - ) Glucose 74 (65-110) mg/dL Uric Acid 6.5 (2.5-7.5) mg/dL Calcium 8.5 (8.4-10.2) mg/dL Magnesium 2.0 Cancelled (1.6-2.3) mg/dL Total Bilirubin 0.5 (0.2-1.3) mg/dL AST 27 (14-36) U/L ALT 17 (6-35) U/L Alkaline Phosphatase 97 (38-126) U/L Lactate Dehydrogenase 301 H (120-246) U/L Total Protein 7.0 (6.3-8.2) g/dL Albumin 3.3 L (3.5-5.1) g/dL Urine Color Yellow (Yellow) Urine Appearance Clear (Clear) Urine pH 5.5 (5.0-9.0) Ur Specific [place] 1.022 (1.001-1.035) Urine Protein Negative (Negative) mg/dL Urine Glucose (UA) Negative (Negative) mg/dL Urine Ketones Negative (Negative) mg/dL Ur Blood (Man) 3+ H (Negative) Urine Nitrate Negative (Negative) Urine Bilirubin Negative (Negative) Urine Urobilinogen 1.0 (<2.0) mg/dL Leukocyte Esterase Rfl 2+ H (Negative) ANA/UL Urine RBC 11-20 H (0-2) /hpf Urine WBC 6-10 H (0-3) /hpf Ur Squamous Epith Cells Moderate (Few) /hpf Urine Bacteria Rare /hpf Urine Casts 0-2 Discharge Plan Discharge Clinical Impression: Headache, Pre-eclampsia Patient Disposition: Still a Patient Condition: Serious Prescriptions: No Action acetaminophen 325 mg Tablet 650 mg PO Q6H PRN (Reason: Mild Pain (1-3) Or Headache) Qty: 60 0RF docusate sodium 100 mg Capsule 100 mg PO BID PRN (Reason: Constipation) Qty: 60 0RF ibuprofen 600 mg Tablet 600 mg PO Q6H PRN (Reason: Cramping) Qty: 40 0RF esomeprazole magnesium [Nexium] 40 mg capsule,delayed release(DR/EC) 40 mg PO DAILY Qty: 14 0RF Follow-up/Referrals: UNKNOWN,DOCTOR [Primary Care Provider] -
[2024-02-27] MEDS: MAGNESIUM SULF 20GM/WATER500ML 500 ML 50 MG IV CONT (15:08)
--- NOTE | 2024-02-27 15:29 | PC.NURSE ---
patient being admitted with mag infusing per order
--- NOTE | 2024-02-27 15:58 | PC.NURSE ---
Hospitalist notified of consults, will be over to see patient.
--- NOTE | 2024-02-27 15:59 | PM.IMCN ---
Assessment and Plan Assessment and plan (1) Preeclampsia in period: Code(s): O14.95 - Unspecified pre-eclampsia, complicating the puerperium Status: Acute Assessment and Plan: -HTN noted 9 days after delivery, no prior HTN history -2+ lower extremity edema -no proteinuria -admitted to OBGYN service with IV magnesium drip -BP improving -Transient bradycardia after IV labetalol given in ER which prompted Hospitalist consult, reported HR in 40s-50s. (2) Bradycardia: Code(s): R00.1 - Bradycardia, unspecified Status: Acute Assessment and Plan: -Transient bradycardia after IV labetalol given in ER which prompted Hospitalist consult, reported HR in 40s-50s. -HR returned to normal by 1700 without further bradycardia -Very likely due to IV beta pato dose only rather than cardiac dysfunction -Echocardiogram ordered by OBGYN (3) Headache: Code(s): R51.9 - Headache, unspecified Status: Acute Assessment and Plan: -History of migraine headaches -Pain improved, nearly gone now -Worse when laying down and relieved by standing up -HTN noted when CROW present/worse and BP improved when CROW under control -Uncertain if pain caused elevated BP or elevated BP caused pain Plan Remain on IV magnesium overnight with reassessment in AM OBGYN to guide care of preeclampsia while Hospitalist Service on board for medical management if need HPI Date of Consult Consult date: 02/27/24 Requesting Physician: Antonia Dasilva MD Primary Care Provider: UNKNOWN,DOCTOR Consult Narrative Reason for consult: Medical management, bradycardia noted after IV labetalol Narrative: Elizabeth Jain is a 33 year old female Status post vaginal delivery 9 days ago. Patient reports she was having contractions for greater than 24 hours prior to assisted rupture of membranes. Patient recalls being 39 weeks 2 or 3 days. She denies any gestational hypertension or past medical history of hypertension. She does have past medical history of migraine headaches. Patient reports that 2 days ago she developed migraine headache back continued to worsen especially when she would lay down. Pain would improve when she stood up. This is the opposite pathology of what would be expected for CSF leak. In the emergency department patient found to be significantly hypertensive. She was treated for migraine headache with some improvement in her pain but her blood pressure did not really improve. Patient was initiated on magnesium drip and admitted to OBGYN service for preeclampsia. Urinalysis with no proteinuria. Patient received IV labetalol in the emergency department and subsequently had bradycardia in the 40s and 50s. Blood pressure was still significantly elevated so she received IV hydralazine which along with magnesium has allow blood pressure to down trend. Patient does not take any antihypertensives prior to hospitalization. OBGYN requested hospitalist consult due to bradycardia and hypertension. Review of Systems Review of Systems: All systems reviewed & are unremarkable except as noted in HPI and below [facility] Social History Social History Smoking status: Never smoker Substance use: never Do You Feel Safe in your Home?: Yes Lack of Transportation: No Lack of Food: Never True Current Housing: I Have Housing Concerned About Future Housing: No Difficulty Paying Gas/Electric Bills: No Difficulty Paying for Meds: No Currently Unemployed: No Education: Grade School Difficulty w/ Childcare or Family Care: No Spiritual care concerns: No Meds Home Medications and Allergies Home Medications Medication Instructions Recorded Confirmed Type esomeprazole magnesium 40 mg 40 mg PO DAILY #14 caps 07/20/22 02/18/24 Rx capsule,delayed release (Nexium) acetaminophen 325 mg tablet 650 mg PO Q6H PRN Mild Pain (1-3) 02/19/24 Rx Or Headache #60 tabs docusate sodium 100 mg capsule 100 mg PO BID PRN Constipation #60 02/19/24 Rx caps ibuprofen 600 mg tablet 600 mg PO Q6H PRN Cramping #40 tabs 02/19/24 Rx Allergies Allergy/AdvReac Type Severity Reaction Status Date / Time Penicillins Allergy Hives Verified 02/27/24 09:49 Vital Signs Vital Signs - 24 hr 02/27/24 09:42 02/27/24 11:38 02/27/24 11:52 Temperature 36.4 C L 36.5 C Pulse Rate 62 44 L 43 L Respiratory Rate 15 19 19 Blood Pressure 161/91 H 174/103 H 185/101 H Pulse Oximetry 100 100 100 Oxygen Delivery Room Air 02/27/24 12:53 02/27/24 13:08 02/27/24 13:22 Temperature Pulse Rate 50 L 56 L 59 L Respiratory Rate 17 19 Blood Pressure 178/89 H 165/98 H 142/100 H Pulse Oximetry 99 98 Oxygen Delivery 02/27/24 14:30 02/27/24 14:50 Temperature Pulse Rate 57 L 68 Respiratory Rate 17 17 Blood Pressure 156/105 H 152/99 H Pulse Oximetry 96 96 Oxygen Delivery Exam Const: General: cooperative, no acute distress and obese Nutritional Appearance: obese Orientation/consciousness: patient oriented x3 Resp: Effort & Inspection: normal respiratory effort Auscultation: clear to auscultation bilaterally Cardio: Rate: regular rate Rhythm: regular rhythm GI: GI Palp: No abdominal tenderness : Other: Deferred Skin: General skin exam: normal color Neuro: General: patient oriented x3 Speech: normal speech Motor exam (neuro): 5/5 motor strength present throughout Sensory Exam: normal sensation Extrem: General: normal to inspection Right lower extremity: edema Details: 2+ Left lower extremity: edema Details: 2+ Psych: Appearance: grossly normal Affect: normal affect Attitude: cooperative Results Labs 02/27/24 11:54 02/27/24 11:54 Labs: Short CBC 02/27/24 Range/Units 11:54 WBC 10.4 H (4.5-10.0) K/mm3 Hgb 11.0 L (12.0-15.0) g/dL Hct 32.1 L (37.0-47.0) % Plt Count 188 D (150-375) k/mm3 BMP 02/27/24 11:54 Sodium 137 Potassium 4.3 Chloride 107 Carbon Dioxide 26 BUN 12 D Creatinine 0.70 Glucose 74 Calcium 8.5 Liver Function 02/27/24 Range/Units 11:54 Total Bilirubin 0.5 (0.2-1.3) mg/dL AST 27 (14-36) U/L ALT 17 (6-35) U/L Alkaline Phosphatase 97 (38-126) U/L Albumin 3.3 L (3.5-5.1) g/dL Urine 02/27/24 Range/Units 12:07 Urine Color Yellow (Yellow) Urine Appearance Clear (Clear) Urine pH 5.5 (5.0-9.0) Ur Specific [place] 1.022 (1.001-1.035) Urine Protein Negative (Negative) mg/dL Urine Glucose (UA) Negative (Negative) mg/dL Pulse Oximetry SpO2 results: 98-100% on room air Attestation: I personally reviewed and interpreted this pulse oximetry as follows: Interpretation: no need for supplemental oxygenation at this time ECG ECG completion date: 02/27/24 ECG completion time: 14:20 Prior ECG tracings: not available for review Interpretation: sinus bradycardia rate of 57 MT interval 184 QRS duration 91 QTC 431 QRS axis 10? no STEMI or acute ischemic changes Imaging Radiologist's impression: XR chest 1V portable Ordering provider: Ezequiel Reyna MD History: 33 years Female with . preeclampsia . Comparison: None. FINDINGS: MEDIASTINUM: The cardiac silhouette is slightly enlarged. Prominent both dong. LUNGS: No infiltrates, effusions or pneumothorax. Prominent bronchovascular markings in the lower lobes which may indicate atelectasis. OTHER: No free air under the diaphragm. Degenerative changes of the spine. IMPRESSION: No acute cardiopulmonary pathology. Reviewed, dictated and finalized at location A. ER MACHINE OPERATOR CT brain wo con Ordering provider: Ezequiel Reyan MD History: 33 years Female with . Headache, 9 days post . Comparison: None. Technique: CT of the head without contrast. Radiation reduction technique utilized.The dose-length product was 756.67 mGy-cm. FINDINGS: BRAIN PARENCHYMA AND CSF SPACES: Mild leukoaraiosis and diffuse cortical atrophy. Mild atheromatous disease. No midline shift, mass effect or hemorrhage. The brain parenchyma and CSF spaces are otherwise normal. VISUALIZED PARANASAL SINUSES: Well aerated. MASTOIDS: Well aerated. BONES: The bones appear intact. SOFT TISSUES: Visualized nasopharynx is normal. Superficial soft tissues are normal. IMPRESSION: No acute intracranial findings. Reviewed, dictated and finalized at location A. ER MACHINE OPERATOR Quality If No VTE Prophylaxis Answer both mechanical and pharmacologic: Reason no mechanical VTE proph: low risk/not indicated Reason no pharmacologic proph: low risk/not indicated Hospitalist MIPS Advance Care Plan I have confirmed that the patient's Advanced Care Plan is present, code status is documented, or surrogate decision maker is listed in patient medical record.: Yes Medication Reconciliation I have utilized all available resources to obtain, update and review the patients current medications (includes all prescriptions, OTC, herbals, cannabis, and nutritional supplements).: Yes
--- NOTE | 2024-02-27 16:53 | OBADM ---
This patient, Elizabeth Jain, admitted to the OB room OB Post 111 for observation. Patient/family oriented to hospital policies and general routines including ID bracelet, bed and alarms, visiting hours, pain management, procedures, bathroom and other care routines, personal items, smoking policy, room service/diet, and visiting hours. Patient/Family are encouraged to report perceived risks to care and to ask questions if they do not understand what they are told or what they should do.
--- NOTE | 2024-02-27 19:04 | PC.NURSE ---
Called Dr. Dasilva, orders received to take blood pressure every four hours.
--- NOTE | 2024-02-27 20:00 | P.HP_ITS ---
H&P: HPI History of Present Illness Date/Time: 02/27/24 17:15 Chief Complaint: headache, SOB Narrative: Elizabeth is a 33yo now P3023, s/p on 02/18/24. She had been receiving PNC in [place]. She reports having a severe headache and SOB today. She presented to the ER where she was found to have severe range BPs requiring IV labetalol. After administration of IV labetalol, her HR was noted to be 44 bmp. Chest xray showed mild cardiomegaly. EKG showed bradycardia. Labs were normal. Review of Systems Constitutional: Constitutional: Denies chills, Denies fever(s) and Reports headache(s) Eyes: Eyes: Denies change in vision ENT: Reports headache(s) Cardiovascular: Cardiovascular: Denies chest pain and Reports dyspnea Respiratory: Respiratory: Reports dyspnea Gastrointestinal: Gastrointestinal: Denies change in bowel habits Genitourinary: Genitourinary: Denies abnormal vaginal bleeding, Denies dysuria and Denies vaginal discharge Integumentary/Breasts: Comments: +breast feeding/pumping Neurologic: Reports headache(s) Psychiatric: Psychiatric: Denies anxiety and Denies depression [facility] Social History Social History Smoking status: Never smoker Substance use: never Do You Feel Safe in your Home?: Yes Lack of Transportation: No Lack of Food: Never True Current Housing: I Have Housing Concerned About Future Housing: No Difficulty Paying Gas/Electric Bills: No Difficulty Paying for Meds: No Currently Unemployed: No Education: Grade School Difficulty w/ Childcare or Family Care: No Spiritual care concerns: No Meds Home Medications and Allergies Home Medications Medication Instructions Recorded Confirmed Type esomeprazole magnesium 40 mg 40 mg PO DAILY #14 caps 07/20/22 02/18/24 Rx capsule,delayed release (Nexium) acetaminophen 325 mg tablet 650 mg PO Q6H PRN Mild Pain (1-3) 02/19/24 Rx Or Headache #60 tabs docusate sodium 100 mg capsule 100 mg PO BID PRN Constipation #60 02/19/24 Rx caps ibuprofen 600 mg tablet 600 mg PO Q6H PRN Cramping #40 tabs 02/19/24 Rx Allergies Allergy/AdvReac Type Severity Reaction Status Date / Time Penicillins Allergy Hives Verified 02/27/24 09:49 Vital Signs Vital Signs - 24 hr 02/27/24 09:42 02/27/24 11:38 02/27/24 11:52 Temperature 97.5 F L 97.7 F Pulse Rate 62 44 L 43 L Respiratory Rate 15 19 19 Blood Pressure 161/91 H 174/103 H 185/101 H Pulse Oximetry 100 100 100 Oxygen Delivery Room Air 02/27/24 12:53 02/27/24 13:08 02/27/24 13:22 Temperature Pulse Rate 50 L 56 L 59 L Respiratory Rate 17 19 Blood Pressure 178/89 H 165/98 H 142/100 H Pulse Oximetry 99 98 Oxygen Delivery 02/27/24 14:30 02/27/24 14:50 02/27/24 16:01 Temperature Pulse Rate 57 L 68 59 L Respiratory Rate 17 17 Blood Pressure 156/105 H 152/99 H 139/93 H Pulse Oximetry 96 96 Oxygen Delivery 02/27/24 16:05 02/27/24 16:05 02/27/24 16:10 Temperature Pulse Rate Respiratory Rate Blood Pressure Pulse Oximetry 88 L 98 99 Oxygen Delivery 02/27/24 16:15 02/27/24 16:20 02/27/24 16:25 Temperature Pulse Rate Respiratory Rate Blood Pressure Pulse Oximetry 99 100 99 Oxygen Delivery 02/27/24 16:30 02/27/24 16:35 02/27/24 16:40 Temperature Pulse Rate Respiratory Rate Blood Pressure Pulse Oximetry 98 98 99 Oxygen Delivery 02/27/24 16:45 02/27/24 16:50 02/27/24 16:55 Temperature Pulse Rate Respiratory Rate Blood Pressure Pulse Oximetry 100 98 98 Oxygen Delivery 02/27/24 17:00 02/27/24 17:01 02/27/24 17:05 Temperature Pulse Rate 62 Respiratory Rate Blood Pressure 139/86 Pulse Oximetry 99 99 Oxygen Delivery 02/27/24 17:10 02/27/24 17:15 02/27/24 17:20 Temperature Pulse Rate Respiratory Rate Blood Pressure Pulse Oximetry 99 99 99 Oxygen Delivery 02/27/24 17:25 02/27/24 17:30 02/27/24 17:35 Temperature Pulse Rate Respiratory Rate Blood Pressure Pulse Oximetry 100 100 100 Oxygen Delivery 02/27/24 17:40 02/27/24 17:45 02/27/24 17:46 Temperature Pulse Rate Respiratory Rate Blood Pressure Pulse Oximetry 100 86 L 100 Oxygen Delivery 02/27/24 17:46 02/27/24 17:51 02/27/24 18:01 Temperature Pulse Rate 79 Respiratory Rate Blood Pressure 135/82 Pulse Oximetry 100 100 Oxygen Delivery 02/27/24 19:01 02/27/24 15:00 02/27/24 18:46 Temperature 97.6 F 97.8 F Pulse Rate 81 79 Respiratory Rate 16 Blood Pressure 132/95 H 135/82 Pulse Oximetry 100 Oxygen Delivery Exam Const: General: cooperative, no acute distress and obese Nutritional Appearance: obese Orientation/consciousness: patient oriented x3 Resp: Effort & Inspection: normal respiratory effort Auscultation: clear to auscultation bilaterally Cardio: Rate: bradycardic Heart sounds: Murmur heart sound present GI: GI Palp: No abdominal tenderness Skin: General skin exam: normal color Neuro: General: patient oriented x3 Extrem: General: normal to inspection Right upper extremity: no edema Psych: Appearance: grossly normal Affect: normal affect Attitude: cooperative H&P: Results Labs Labs: Short CBC 02/27/24 Range/Units 11:54 WBC 10.4 H (4.5-10.0) K/mm3 Hgb 11.0 L (12.0-15.0) g/dL Hct 32.1 L (37.0-47.0) % Plt Count 188 D (150-375) k/mm3 BMP 02/27/24 11:54 Sodium 137 Potassium 4.3 Chloride 107 Carbon Dioxide 26 BUN 12 D Creatinine 0.70 Glucose 74 Calcium 8.5 Liver Function 02/27/24 Range/Units 11:54 Total Bilirubin 0.5 (0.2-1.3) mg/dL AST 27 (14-36) U/L ALT 17 (6-35) U/L Alkaline Phosphatase 97 (38-126) U/L Albumin 3.3 L (3.5-5.1) g/dL Urine 02/27/24 Range/Units 12:07 Urine Color Yellow (Yellow) Urine Appearance Clear (Clear) Urine pH 5.5 (5.0-9.0) Ur Specific [place] 1.022 (1.001-1.035) Urine Protein Negative (Negative) mg/dL Urine Glucose (UA) Negative (Negative) mg/dL Assessment and Plan Assessment and plan (1) Preeclampsia in period: Code(s): O14.95 - Unspecified pre-eclampsia, complicating the puerperium Status: Acute (2) Bradycardia: Code(s): R00.1 - Bradycardia, unspecified Status: Acute Plan - pre-eclampsia with severe range BP's requiring IV anti- hypertensives - New onset bradycardia then noted, murmur heard on exam - Echo ordered to rule out cardiomyopathy, hospitalist consulted - If anti-hypertensives indicated, will give procardia or could consider diuretic - No overt fluid over load symptoms; but will give gentle IV hydration; max 75cc/hr - Magnesium 4g loading, continue 2g/hr for 24 hours - Regular diet - Ibuprofen, tylenol PRN pain/headache - Pumping supplies to bedside
--- NOTE | 2024-02-27 21:44 | PC.NURSE ---
Hospitalist Peggy Kruse APRN at bedside.
[2024-02-28] VITALS (27 sets, daily range): BP systolic 124–150; BP diastolic 84–108; PULSE 69–87; RESP 14–16; TEMP 36.4–37.7; O2SAT 96–100
--- NOTE | 2024-02-28 | ECHO_ITS ---
Patient Info Name: Elizabeth Jain Age: 33 years : 1990 Gender: Female Ht: 67 in Wt: 251 lbs BSA: 2.37 m2 HR: 72 bpm BP: 124 / 87 mmHg Technical Quality: Fair Exam Date: 02/28/2024 11:10 AM Exam Location: Echo Lab Patient Status: Inpatient Admit Date: 02/27/2024 Staff Ordering Physician: Antonia Dasilva MD Filler Operator: Elan Borjas RDCS Attending Provider: Antonia Dasilva MD Referring Physician: Brown ORTIZ; Exam Type: CA echo doppler color flow Study Info Indications - PP pre eclampsia I51.7 - Cardiomegaly R00.1 - Bradycardia, unspecified Complete two-dimensional, color flow and Doppler transthoracic echocardiogram is performed. Summary 1. Complete two-dimensional, color flow and Doppler transthoracic echocardiogram is performed. 2. Left ventricular wall thickness is normal. 3. Left ventricular systolic function is normal with an estimated ejection fraction of 60-65 %. 4. Left ventricular chamber dimension is borderline. 5. The left ventricular diastolic function is normal. 6. Right ventricular chamber dimension is normal. 7. Right ventricular systolic function is normal. 8. There is no aortic valve stenosis with a peak velocity of 154 cm/s, mean gradient of 4 mmHg, and aortic valve area of 3.0 cm2. 9. The aortic valve is trileaflet. 10. There is mild tricuspid valve regurgitation. 11. No pulmonary hypertension, estimated pulmonary arterial systolic pressure is 30-40 mmHg. 12. There is mild pulmonic regurgitation. 13. There is small circumferential pericardial effusion. Left Ventricle Left ventricular chamber dimension is borderline. Left ventricular wall thickness is normal. Left ventricular systolic function is normal with an estimated ejection fraction of 60-65 %. The left ventricular diastolic function is normal. Right Ventricle Right ventricular chamber dimension is normal. Right ventricular systolic function is normal. Left Atria Left atrial chamber dimension is enlarged. Right Atria Right atrial chamber dimension is normal. Aortic Valve The aortic valve is trileaflet. There is no aortic valve stenosis with a peak velocity of 154 cm/s, mean gradient of 4 mmHg, and aortic valve area of 3.0 cm2. There is no aortic valve regurgitation. Pulmonic Valve There is mild pulmonic regurgitation. Mitral Valve The mitral valve has normal leaflets. There is no mitral valve stenosis. There is trace mitral valve regurgitation. Tricuspid Valve There is mild tricuspid valve regurgitation. No pulmonary hypertension, estimated pulmonary arterial systolic pressure is 30-40 mmHg. Pericardium/Pleural There is small circumferential pericardial effusion. Aorta The aortic root size at the sinus of Valsalva is normal. The prox ascending aorta size is normal. Left Ventricular Outflow Tract Name Value Normal LVOT 2D LVOT Diameter 2.0 cm LVOT Doppler LVOT Peak Gradient 7 mmHg LVOT Mean Gradient 3 mmHg LVOT VTI 29 cm LVOT VTI/AV VTI Ratio 1.0 LVOT Stroke Volume 88 ml LVOT CO 5.6 l/min LVOT CI 2.4 l/min/m2 Pulmonic Valve Name Value Normal PV Doppler PV Peak Gradient 5 mmHg PV Regurgitation Doppler ND Peak End Diastolic Velocity 149 cm/s Mitral Valve Name Value Normal MV Doppler MV Decel [place] 391 cm/s2 MV PHT 69 ms MV Area (PHT) 3.2 cm2 4.0-5.0 MV Diastolic Function MV E Peak Velocity 93 cm/s MV A Peak Velocity 82 cm/s MV E/A 1.1 MV Decel Time 237 ms Tricuspid Valve Name Value Normal TV Regurgitation Doppler TR Peak Velocity 280 cm/s TR Peak Gradient 30 mmHg Estimated PAP/RSVP PA Systolic Pressure 3,040 mmHg <36 Aorta Name Value Normal Ascending Aorta Ao Root Diameter (MM) 2.4 cm Ao Root Diam Index (MM) 1.0 cm/m2 Aortic Valve Name Value Normal AV Doppler AV Peak Velocity 154 cm/s AV Peak Gradient 9 mmHg AV Mean Gradient 4 mmHg AV VTI 29 cm AV Area (Cont Eq VTI) 3.0 cm2 >=3.0 AV Area (Cont Eq Haris) 2.7 cm2 AV Regurgitation 2D LVOT Area 3.0 cm2 Ventricles Name Value Normal LV Dimensions 2D/MM IVS Diastolic Thickness (2D) 0.7 cm 0.6-1.0 IVS Diastole Thickness (MM) 0.8 cm 0.6-0.9 LVID Diastole (2D) 5.3 cm 3.8-5.2 LVID Diastole (MM) 5.0 cm 3.8-5.2 LVIW Diastolic Thickness (2D) 1.0 cm 0.6-0.9 LVIW Diastolic Thickness (MM) 0.9 cm 0.6-0.9 LVID Systole (2D) 3.2 cm 2.2-3.5 LVID Systole (MM) 2.6 cm 2.2-3.5 LVOT Diameter 2.0 cm LV Mass (2D Cubed) 167.38 g 67.00-162.00 LV Mass Index (2D Cubed) 71 g/m2 43-95 Relative Wall Thickness (2D) 0.38 LV Mass (MM Cubed) 148.09 g 67.00-162.00 LV Mass Index (MM Cubed) 62 g/m2 43-95 Relative Wall Thickness (MM) 0.37 LV Fractional Shortening/Ejection Fraction 2D/MM LV Fractional Shortening (2D) 40 % 27-45 LV Fractional Shortening (MM) 48 % 27-45 LV EF (MM Teicholz) 79 % 54-74 LV EF (2D Teicholz) 71 % 54-74 LV Diastolic Volume (4C MOD) 98 ml LV EF (4C MOD) 71 % LV Diastolic Volume (2C MOD) 96 ml LV EF (2C MOD) 65 % LV Diastolic Volume (BP MOD) 98 ml 46-106 LV Diastolic Volume Index (BP MOD) 41 ml/m2 29-61 LV Systolic Volume (BP MOD) 31 ml 14-42 LV Systolic Volume Index (BP MOD) 13 ml/m2 8-24 LV EF (BP MOD) 69 % 54-74 LV Diastolic Length (4C) 8.7 cm LV Systolic Length (4C) 6.8 cm LV Stroke Volume (4C MOD) 70 ml Atria Name Value Normal LA Dimensions LA Dimension (MM) 5.0 cm 2.7-3.8 LA Volume (4C A-L) 71 ml LA Volume (BP A-L) 77 ml RA Dimensions RA Area (4C) 18.1 cm2 <=18.0 Report Signatures
[2024-02-28] MEDS: MAGNESIUM SULF 20GM/WATER500ML 500 ML 50 MG IV CONT ×2 (01:28→12:12)
[2024-02-28] MEDS: IBUPROFEN 600 MG TABLET PO ×2 (04:28→22:10)
[2024-02-28 05:55] LABS: Basophils Percent Auto 0.4 % (0.2-1.2); Eosinophils Absolute Auto 0.3 K/mm3 (0-0.3); Eosinophils Percent Auto 3.7 % (0-4.4); Hematocrit 32.8 % (37.0-47.0); Hemoglobin 11.1 g/dL (12.0-15.0); Immature Granulocyte Absolute 0.05 K/mm3 (0.00-0.031); Immature Granulocyte Percent A 0.5 % (0-0.5); Lymphocytes Absolute Auto 1.68 K/mm3 (0.9-3.2); Mean Corpuscular HGB Conc 33.8 g/dl (32-36); Mean Corpuscular Hemoglobin 28.5 pg (26-34); Mean Corpuscular Volume 84.1 fl (80-100); Mean Platelet Volume 11.1 fl (7.4-10.4); Monocytes Absolute Auto 0.5 K/mm3 (0.1-0.6); Monocytes Percent Auto 5.5 % (2.6-8.5); Neutrophils Absolute Auto 6.7 K/mm3 (1.3-6.7); Neutrophils Percent Auto 71.9 % (45.5-73.1); Platelet Count Result 194 k/mm3 (150-375); White Blood Count 9.3 K/mm3 (4.5-10.0)
[2024-02-28 06:12] LABS: Alanine Aminotransferase 15 U/L (6-35); Albumin Level 3.1 g/dL (3.5-5.1); Alkaline Phosphatase 105 U/L (38-126); Anion Gap 6 mmol/L (4-12); Aspartate Amino Transferase 24 U/L (14-36); Bilirubin,Total 0.4 mg/dL (0.2-1.3); Blood Urea Nitrogen 9 mg/dL (7-17); Calcium 6.9 mg/dL (8.4-10.2); Carbon Dioxide 23 mmol/L (22-30); Chloride 106 mmol/L (98-107); Estimated CRCL calculation 149 ml/min; Estimated Glomerular Filt Rate > 60; Glucose 96 mg/dL (65-110); Magnesium 5.5 mg/dL (1.6-2.3); Potassium 3.8 mmol/L (3.4-5.0); Sodium 135 mmol/L (137-145)
[2024-02-28 06:20] LABS: NT Pro B Type Natriuretic Pept 88 pg/mL (19.9-100); Troponin I 0.014 ng/mL (0.000-0.034)
--- NOTE | 2024-02-28 07:06 | P.PNIM_ITS ---
Progress Note: A&P Assessment and Plan (1) Preeclampsia in period: Code(s): O14.95 - Unspecified pre-eclampsia, complicating the puerperium Status: Acute Assessment and Plan: pre-eclampsia with severe range BP's requiring IV Labetalol 20 mg IV, no proteinuria on UA, kidney and liver function normal - Transient bradycardia after IV labetalol given in ER which prompted Hospitalist consult HR improved, now ranging 70-80s - Blood pressures improved ranging 120-130s systolic Per Showcase Maker if anti-hypertensives indicated, will give procardia or could consider diuretic - Per Showcase Maker, magnesium 4g loading, continue 2g/hr for 24 hours - Echo ordered to rule out cardiomyopathy, hospitalist consulted - No signs of volume overload, remains on gentle IV hydration 25 ml/hf - Regular diet - Ibuprofen, tylenol PRN pain/headache - admitted to OBGYN service with IV magnesium drip (2) Bradycardia: Code(s): R00.1 - Bradycardia, unspecified Status: Acute Assessment and Plan: Transient bradycardia after IV labetalol given in ER which prompted Hospitalist consult, reported HR in 40s-50s. EKG 02/26: Sinus brandon. -HR returned to normal, now ranging 70-80s -Very likely due to IV beta pato, however possible post cardiac dysfu nction -Echocardiogram ordered by OBGYN (3) Headache: Code(s): R51.9 - Headache, unspecified Status: Acute Assessment and Plan: -History of migraine headaches -Worse when laying down and relieved by standing up -HTN noted when CROW present/worse and BP improved when CROW under control -Uncertain if pain caused elevated BP or elevated BP caused pain Resolved. Time Spent With Patient Time with patient: 25 - 35 minutes Subjective Date/time seen: 02/28/24 07:06 Interval history: 33 year old female with past medical history of migraines, now P3023, s/p on 02/18/24 presents to the hospital for a severe headache and SOB today. Patient is pleasant sitting up on the side of her bed. she has no complaints at this time denying chest pain, shortness a breath, palpitations, headache, nausea/vomiting, and abdominal pain. Rate is much improved and is staying stable in the 70s to 80s. Blood pressure continues to be slightly elevated in the 130 systolic however much improved compared to yesterday. Review of Systems Review of Systems: All systems reviewed & are unremarkable except as noted in HPI and below Exam Narrative: AF HR 82 RR 14 Spo2 97 BP 132/94 General: female in no acute respiratory distress who is nontoxic appearing, lying semi recumbent in bed. HEENT: Normocephalic. Atraumatic. Extraocular movement intact. Sclera clear and anicteric. No facial asymmetry. Chest: Lungs are clear to auscultation bilaterally. No wheezes or crackles. CV: Heart was regular rate and rhythm. S1-S2. No murmurs, gallops, or rubs. Abd: Abdomen was soft. Nontender. Nondistended. Positive bowel sounds. Ext: No clubbing, cyanosis, or edema. 2+ DP pulses bilaterally. Neuro: Patient is alert. Strength is 5/5 in both upper and lower extremities with pushes/pulls. Cranial nerves 2-12 are intact. No clonus. Speech is clear. Psych: Normal mood and affect. Patient is pleasant and cooperative. Skin: Warm and dry. No rashes noted. Objective Data Vital Signs Vital Signs: Vital Signs - 24 hr 02/27/24 09:42 02/27/24 11:38 02/27/24 11:52 Temperature 97.5 F L 97.7 F Pulse Rate 62 44 L 43 L Respiratory Rate 15 19 19 Blood Pressure 161/91 H 174/103 H 185/101 H Pulse Oximetry 100 100 100 Oxygen Delivery Room Air 02/27/24 12:53 02/27/24 13:08 02/27/24 13:22 Temperature Pulse Rate 50 L 56 L 59 L Respiratory Rate 17 19 Blood Pressure 178/89 H 165/98 H 142/100 H Pulse Oximetry 99 98 Oxygen Delivery 02/27/24 14:30 02/27/24 14:50 02/27/24 16:01 Temperature Pulse Rate 57 L 68 59 L Respiratory Rate 17 17 Blood Pressure 156/105 H 152/99 H 139/93 H Pulse Oximetry 96 96 Oxygen Delivery 02/27/24 16:05 02/27/24 16:05 02/27/24 16:10 Temperature Pulse Rate Respiratory Rate Blood Pressure Pulse Oximetry 88 L 98 99 Oxygen Delivery 02/27/24 16:15 02/27/24 16:20 02/27/24 16:25 Temperature Pulse Rate Respiratory Rate Blood Pressure Pulse Oximetry 99 100 99 Oxygen Delivery 02/27/24 16:30 02/27/24 16:35 02/27/24 16:40 Temperature Pulse Rate Respiratory Rate Blood Pressure Pulse Oximetry 98 98 99 Oxygen Delivery 02/27/24 16:45 02/27/24 16:50 02/27/24 16:55 Temperature Pulse Rate Respiratory Rate Blood Pressure Pulse Oximetry 100 98 98 Oxygen Delivery 02/27/24 17:00 02/27/24 17:01 02/27/24 17:05 Temperature Pulse Rate 62 Respiratory Rate Blood Pressure 139/86 Pulse Oximetry 99 99 Oxygen Delivery 02/27/24 17:10 02/27/24 17:15 02/27/24 17:20 Temperature Pulse Rate Respiratory Rate Blood Pressure Pulse Oximetry 99 99 99 Oxygen Delivery 02/27/24 17:25 02/27/24 17:30 02/27/24 17:35 Temperature Pulse Rate Respiratory Rate Blood Pressure Pulse Oximetry 100 100 100 Oxygen Delivery 02/27/24 17:40 02/27/24 17:45 02/27/24 17:46 Temperature Pulse Rate Respiratory Rate Blood Pressure Pulse Oximetry 100 86 L 100 Oxygen Delivery 02/27/24 17:46 02/27/24 17:51 02/27/24 18:01 Temperature Pulse Rate 79 Respiratory Rate Blood Pressure 135/82 Pulse Oximetry 100 100 Oxygen Delivery 02/27/24 19:01 02/27/24 22:52 02/27/24 22:53 Temperature Pulse Rate 81 82 Respiratory Rate Blood Pressure 132/95 H 135/95 H Pulse Oximetry 98 Oxygen Delivery 02/28/24 01:31 02/28/24 01:32 02/28/24 05:40 Temperature Pulse Rate 78 Respiratory Rate Blood Pressure 137/93 H Pulse Oximetry 98 97 Oxygen Delivery 02/28/24 05:41 02/27/24 15:00 02/27/24 18:46 Temperature 97.6 F 97.8 F Pulse Rate 76 79 Respiratory Rate 16 Blood Pressure 124/87 135/82 Pulse Oximetry 100 Oxygen Delivery 02/27/24 22:55 02/28/24 01:32 02/28/24 05:41 Temperature 98.8 F 98.8 F 99.2 F Pulse Rate 84 82 74 Respiratory Rate 16 14 14 Blood Pressure 135/95 H 137/93 H 124/87 Pulse Oximetry 98 98 97 Oxygen Delivery Intake/Output Intake/Output: Intake & Output 02/25/24 02/26/24 02/27/24 02/28/24 23:59 23:59 23:59 23:59 Intake Total 100 500 Output Total 1800 2200 Balance -1700 -1700 Meds/Results Medications: Active Medications Generic Name Dose Route Start Last Admin Trade Name Freq PRN Reason Stop Dose Admin Docusate Sodium 100 mg 02/27/24 23:45 Docusate Sodium 100 Mg Capsule PO Q12H PRN Constipation Magnesium Sulfate 500 mls @ 50 mls/hr 02/27/24 14:30 02/28/24 01:28 Magnesium Sulf 20gm/[id number] IV CONT 50 mls/hr .Q10H NICOLE Administration Lactated Ringer's 1,000 mls @ 25 mls/hr 02/27/24 15:50 Lr - Lactated Ringers Iv IV CONT .Q24H NICOLE Ibuprofen 600 mg 02/27/24 15:51 02/28/24 04:28 Ibuprofen 600 Mg Tablet PO 600 mg Q6H PRN Administration Cramping Pantoprazole Sodium 40 mg 02/28/24 09:00 Pantoprazole 40 Mg Tablet PO QAM NICOLE Perflutren Lipid Microsphere 0 ml 02/27/24 15:08 Perflutren Lipid Microspheres 1.5 Ml Vial Diluted To 10 Ml Total Volume IV PUSH 03/01/24 15:09 ONCE PRN adequate visualization Protocol Radiology Results: ITS Impressions Head CT 02/27/24 12:40 IMPRESSION: No acute intracranial findings. Chest X-Ray 02/27/24 14:44 IMPRESSION: No acute cardiopulmonary pathology. Labs Labs: Laboratory Results - last 24 hr 02/27/24 02/27/24 02/28/24 11:54 12:07 05:34 WBC 10.4 H 9.3 RBC 3.85 L 3.90 L Hgb 11.0 L 11.1 L Hct 32.1 L 32.8 L MCV 83.4 84.1 MCH 28.6 28.5 MCHC 34.3 33.8 RDW 16.9 H 17.0 H Plt Count 188 D 194 MPV 11.5 H 11.1 H Immature Gran % (Auto) 0.5 0.5 Neut % (Auto) 70.6 71.9 Lymph % (Auto) 19.9 18.0 L [place] % (Auto) 5.1 5.5 Eos % (Auto) 3.4 3.7 Baso % (Auto) 0.5 0.4 Lymph # (Auto) 2.06 1.68 [place] # (Auto) 0.5 0.5 Eos # (Auto) 0.4 H 0.3 Baso # (Auto) 0.1 0.0 Abs Immat Gran (auto) 0.05 H 0.05 H Absolute Neuts (auto) 7.3 H 6.7 Absolute Nucleated RBC 0.000 0.000 Nucleated RBC % 0.0 0.0 Sodium 137 135 L Potassium 4.3 3.8 Chloride 107 106 Carbon Dioxide 26 23 Anion Gap 4 6 BUN 12 D 9 Creatinine 0.70 0.60 L Estim Creat Clear Calc 130 149 Estimated GFR > 60 > 60 Glucose 74 96 Uric Acid 6.5 Calcium 8.5 6.9 L Magnesium 2.0 Cancelled 5.5 H Total Bilirubin 0.5 0.4 AST 27 24 ALT 17 15 Alkaline Phosphatase 97 105 Lactate Dehydrogenase 301 H Troponin I 0.014 NT-Pro-B Natriuret Pep 88 Total Protein 7.0 7.0 Albumin 3.3 L 3.1 L Urine Color Yellow Urine Appearance Clear Urine pH 5.5 Ur Specific [place] 1.022 Urine Protein Negative Urine Glucose (UA) Negative Urine Ketones Negative Ur Blood (Man) 3+ H Urine Nitrate Negative Urine Bilirubin Negative Urine Urobilinogen 1.0 Leukocyte Esterase Rfl 2+ H Urine RBC 11-20 H Urine WBC 6-10 H Ur Squamous Epith Cells Moderate Urine Bacteria Rare Urine Casts 0-2
--- NOTE | 2024-02-28 07:15 | P.PNOB_ITS ---
OB - PN: Subj Subjective Date/time seen: 02/28/24 07:15 Interval history: HD#2 No events overnight. Still on magnesium this morning. She denies any headaches, CP, SOB. BPs have been controlled overnight. She has tolerated regular diet. Using the restroom normally. Reports normal lochia. The hospitalist saw her overnight; ordered labs-- troponin slightly elevated. ECHO pending today. OB - PN: Obj Data Labs 02/28/24 05:34 02/28/24 05:34 Labs: Laboratory Results - last 24 hr 02/27/24 02/27/24 02/28/24 11:54 12:07 05:34 WBC 10.4 H 9.3 RBC 3.85 L 3.90 L Hgb 11.0 L 11.1 L Hct 32.1 L 32.8 L MCV 83.4 84.1 MCH 28.6 28.5 MCHC 34.3 33.8 RDW 16.9 H 17.0 H Plt Count 188 D 194 MPV 11.5 H 11.1 H Immature Gran % (Auto) 0.5 0.5 Neut % (Auto) 70.6 71.9 Lymph % (Auto) 19.9 18.0 L [place] % (Auto) 5.1 5.5 Eos % (Auto) 3.4 3.7 Baso % (Auto) 0.5 0.4 Lymph # (Auto) 2.06 1.68 [place] # (Auto) 0.5 0.5 Eos # (Auto) 0.4 H 0.3 Baso # (Auto) 0.1 0.0 Abs Immat Gran (auto) 0.05 H 0.05 H Absolute Neuts (auto) 7.3 H 6.7 Absolute Nucleated RBC 0.000 0.000 Nucleated RBC % 0.0 0.0 Sodium 137 135 L Potassium 4.3 3.8 Chloride 107 106 Carbon Dioxide 26 23 Anion Gap 4 6 BUN 12 D 9 Creatinine 0.70 0.60 L Estim Creat Clear Calc 130 149 Estimated GFR > 60 > 60 Glucose 74 96 Uric Acid 6.5 Calcium 8.5 6.9 L Magnesium 2.0 Cancelled 5.5 H Total Bilirubin 0.5 0.4 AST 27 24 ALT 17 15 Alkaline Phosphatase 97 105 Lactate Dehydrogenase 301 H Troponin I 0.014 NT-Pro-B Natriuret Pep 88 Total Protein 7.0 7.0 Albumin 3.3 L 3.1 L Urine Color Yellow Urine Appearance Clear Urine pH 5.5 Ur Specific [place] 1.022 Urine Protein Negative Urine Glucose (UA) Negative Urine Ketones Negative Ur Blood (Man) 3+ H Urine Nitrate Negative Urine Bilirubin Negative Urine Urobilinogen 1.0 Leukocyte Esterase Rfl 2+ H Urine RBC 11-20 H Urine WBC 6-10 H Ur Squamous Epith Cells Moderate Urine Bacteria Rare Urine Casts 0-2 Imaging Radiologist's impression: Impressions Head CT 02/27/24 12:40 IMPRESSION: No acute intracranial findings. Chest X-Ray 02/27/24 14:44 IMPRESSION: No acute cardiopulmonary pathology. OB - PN A/P Assessment and Plan (1) Preeclampsia in period: Code(s): O14.95 - Unspecified pre-eclampsia, complicating the puerperium Status: Acute (2) Bradycardia: Code(s): R00.1 - Bradycardia, unspecified Status: Acute Plan - Continue magnesium sulfate 2g/hr for 24 hours - BPs in normal to moderate range - If anti-hypertensives indicated, would administer procardia - ECHO pending, HR in 70-80s overnight - Trend troponin per hospitalist - Regular diet, gentle IV hydration - Tylenol, ibuprofen PRN - Possible d/c tonight/tomorrow AM Time Spent With Patient Time: Total time spent is greater than 50% in coordination of care (as documented) at patient's floor/unit and/or counseling patient: Review of Systems Constitutional: Constitutional: Denies chills, Denies fever(s) and Denies headache(s) Eyes: Eyes: Denies change in vision ENT: Denies headache(s) Cardiovascular: Cardiovascular: Denies chest pain and Denies dyspnea Respiratory: Respiratory: Denies dyspnea Gastrointestinal: Gastrointestinal: Denies change in bowel habits Genitourinary: Genitourinary: Denies abnormal vaginal bleeding, Denies dysuria and Denies vaginal discharge Integumentary/Breasts: Comments: +breast feeding/pumping Neurologic: Denies headache(s) Psychiatric: Psychiatric: Denies anxiety and Denies depression Exam Const: General: cooperative, no acute distress and obese Nutritional Appearance: obese Orientation/consciousness: patient oriented x3 Resp: Effort & Inspection: normal respiratory effort Auscultation: clear to auscultation bilaterally Cardio: Rate: regular rate Heart sounds: no murmurs GI: GI Palp: No abdominal tenderness Skin: General skin exam: normal color Neuro: General: patient oriented x3 Extrem: General: normal to inspection Right upper extremity: no edema Psych: Appearance: grossly normal Affect: normal affect Attitude: cooperative
--- NOTE | 2024-02-28 07:52 | PC.NURSE ---
0745--Dr. Dasilva at bedside. Plan of care discussed. Physical assessment performed.
--- NOTE | 2024-02-28 08:06 | PC.NURSE ---
0730--Pt ambulated to BR. Sitting on side of bed, pumping. States she feels better and denies headache, blurred vision, pain, difficulty breathing. Pt feels swelling has subsided in fingers and ankles.
[2024-02-28] MEDS: PANTOPRAZOLE 40 MG TABLET PO (09:03)
[2024-02-28] MEDS: DOCUSATE SODIUM 100 MG CAPSULE PO (12:12)
--- NOTE | 2024-02-28 12:58 | PC.NURSE ---
1245--Hospitalist at bedside. Physical assessment performed.
[2024-02-28 15:15] LABS: Troponin I 0.012 ng/mL (0.000-0.034)
[2024-02-28] MEDS: NIFEdipine 30 MG TAB.ER.24 PO (16:02)
--- NOTE | 2024-02-28 17:17 | PC.NURSE ---
1621--Reported lab and pt condition to Dr. Dasilva.
--- NOTE | 2024-02-28 17:42 | PC.NURSE ---
1740--Pt up to shower. Reminded to pull emergency cord if needed.
[2024-02-29] VITALS (7 sets, daily range): BP systolic 123–135; BP diastolic 78–93; PULSE 57–81; RESP 14–20; TEMP 36.8–37.2; O2SAT 97–100
--- NOTE | 2024-02-29 06:03 | PC.NURSE ---
Report given to Stella Davidson RN.
--- NOTE | 2024-02-29 07:13 | PM.OBPNVD ---
OB - PN: Subj Subjective Date/time seen: 02/29/24 07:13 Interval history: HD#3 No events overnight. Magnesium was stopped yesterday mid day. Nifedipine was started also mid day to help with moderate range BPs. She denies any headaches, CP, SOB. BPs have been in normal range overnight. She has tolerated regular diet. Using the restroom normally. Reports normal lochia. Troponin decreased from first result. ECHO results pending, done yesterday around noon. Had low grade temperature but reports the room was very hot and she woke up sweating; no breast pain, dysuria, URI symptoms, cough. OB - PN: Obj Data Labs 02/28/24 05:34 02/28/24 05:34 Labs: Laboratory Results - last 24 hr 02/28/24 14:30 Troponin I 0.012 OB - PN A/P Assessment and Plan (1) Preeclampsia in period: Code(s): O14.95 - Unspecified pre-eclampsia, complicating the puerperium Status: Acute Plan - S/p magnesium sulfate for 24 hours - BPs in normal range since starting Nifedipine 30mg daily-- rx sent to pharmacy - ECHO results pending, HR in high 50s-80s overnight - Troponin trend decreased - Regular diet only - Tylenol, ibuprofen PRN - For discharge today pending echo results (~early afternoon to also verify no temperatures) Time Spent With Patient Time: Total time spent is greater than 50% in coordination of care (as documented) at patient's floor/unit and/or counseling patient: Review of Systems Constitutional: Constitutional: Denies chills, Denies fever(s) and Denies headache(s) Eyes: Eyes: Denies change in vision ENT: Denies headache(s) Cardiovascular: Cardiovascular: Denies chest pain and Denies dyspnea Respiratory: Respiratory: Denies dyspnea Gastrointestinal: Gastrointestinal: Denies change in bowel habits Genitourinary: Genitourinary: Denies abnormal vaginal bleeding, Denies dysuria and Denies vaginal discharge Integumentary/Breasts: Comments: +breast feeding/pumping Neurologic: Denies headache(s) Psychiatric: Psychiatric: Denies anxiety and Denies depression Exam Const: General: cooperative, no acute distress and obese Nutritional Appearance: obese Orientation/consciousness: patient oriented x3 Resp: Effort & Inspection: normal respiratory effort Auscultation: clear to auscultation bilaterally Cardio: Rate: regular rate Heart sounds: no murmurs GI: GI Palp: No abdominal tenderness Skin: General skin exam: normal color Neuro: General: patient oriented x3 Extrem: General: normal to inspection Right upper extremity: no edema Psych: Appearance: grossly normal Affect: normal affect Attitude: cooperative
[2024-02-29] MEDS: PANTOPRAZOLE 40 MG TABLET PO (08:14)
[2024-02-29] MEDS: IBUPROFEN 600 MG TABLET PO (08:14)
[2024-02-29] MEDS: NIFEdipine 30 MG TAB.ER.24 PO (08:15)
--- NOTE | 2024-02-29 09:40 | PM.IMPN ---
Progress Note: A&P Assessment and Plan (1) Preeclampsia in period: Code(s): O14.95 - Unspecified pre-eclampsia, complicating the puerperium Status: Acute Assessment and Plan: pre-eclampsia with severe range BP's requiring IV Labetalol 20 mg IV, no proteinuria on UA, kidney and liver function normal - Transient bradycardia after IV labetalol given in ER which prompted Hospitalist consult HR improved, now ranging 70-80s - Blood pressures improved ranging 120-130s systolic Per [employer] if anti-hypertensives indicated, will give procardia or could consider diuretic - Per [employer], magnesium 4g loading, continue 2g/hr for 24 hours - Echo ordered to rule out cardiomyopathy, hospitalist consulted. Awaiting results. - No signs of volume overload. - Regular diet - Ibuprofen, tylenol PRN pain/headache - admitted to OBGYN service with IV magnesium drip (2) Bradycardia: Code(s): R00.1 - Bradycardia, unspecified Status: Acute Assessment and Plan: Transient bradycardia after IV labetalol given in ER which prompted Hospitalist consult, reported HR in 40s-50s. EKG 02/26: Sinus brandon. -HR returned to normal, now ranging 70-80s -Very likely due to IV beta pato, however possible post cardiac dysfunction -Echocardiogram ordered by OBGYN, awaiting results. (3) Headache: Code(s): R51.9 - Headache, unspecified Status: Acute Assessment and Plan: -History of migraine headaches -Worse when laying down and relieved by standing up -HTN noted when CROW present/worse and BP improved when CROW under control -Uncertain if pain caused elevated BP or elevated BP caused pain Resolved. Subjective Date/time seen: 02/29/24 09:40 Interval history: Patient walking in room. Denies chest pain, palpitations, headache, or dizziness. Patient reports feeling better. Review of Systems Review of Systems: All systems reviewed & are unremarkable except as noted in HPI and below Exam Const: General: comfortable and no acute distress Resp: Effort & Inspection: normal respiratory effort Auscultation: clear to auscultation bilaterally Cardio: Rate: regular rate Rhythm: regular rhythm GI: GI Palp: Yes Soft to palpation Auscultation: normal bowel sounds Skin: General skin exam: no rashes or lesions noted Neuro: General: gait normal Speech: normal speech Extrem: General: normal to inspection Psych: Affect: normal affect Objective Data Vital Signs Vital Signs: Vital Signs - 24 hr 02/28/24 09:42 02/28/24 10:01 02/28/24 13:19 Temperature Pulse Rate 79 82 Respiratory Rate Blood Pressure 133/101 H 132/94 H Pulse Oximetry 97 02/28/24 15:56 02/28/24 17:01 02/28/24 20:34 Temperature Pulse Rate 69 71 86 Respiratory Rate Blood Pressure 143/90 H 150/108 H 129/86 Pulse Oximetry 02/28/24 20:35 02/28/24 23:40 02/28/24 23:41 Temperature Pulse Rate 83 Respiratory Rate Blood Pressure 126/84 Pulse Oximetry 99 96 02/29/24 04:47 02/29/24 04:48 02/29/24 08:12 Temperature Pulse Rate 57 L Respiratory Rate Blood Pressure 135/78 Pulse Oximetry 100 100 02/29/24 08:13 02/28/24 13:01 02/28/24 13:25 Temperature 97.9 F Pulse Rate 80 Respiratory Rate 14 Blood Pressure 123/93 H 132/94 H Pulse Oximetry 02/28/24 16:00 02/28/24 20:35 02/29/24 04:48 Temperature 97.8 F 99.7 F H 98.3 F Pulse Rate 69 87 63 Respiratory Rate 14 14 14 Blood Pressure 129/86 135/78 Pulse Oximetry 99 100 02/28/24 23:41 02/29/24 08:09 Temperature 99.9 F H 98.2 F Pulse Rate 86 81 Respiratory Rate 16 16 Blood Pressure 126/84 123/93 H Pulse Oximetry 96 100 Intake/Output Intake/Output: Intake & Output 02/26/24 02/27/24 02/28/24 02/29/24 23:59 23:59 23:59 23:59 Intake Total 200 5120 1180 Output Total 1800 8000 1800 Balance -8205 -5173 -401 Meds/Results Medications: Active Medications Generic Name Dose Route Start Last Admin Trade Name Freq PRN Reason Stop Dose Admin Docusate Sodium 100 mg 02/27/24 23:45 02/28/24 12:12 Docusate Sodium 100 Mg Capsule PO 100 mg Q12H PRN Administration Constipation Magnesium Sulfate 500 mls @ 50 mls/hr 02/27/24 14:30 02/28/24 12:12 Magnesium Sulf 20gm/[id number] IV CONT 50 mls/hr .Q10H NICOLE Administration Lactated Ringer's 1,000 mls @ 25 mls/hr 02/27/24 15:50 Lr - Lactated Ringers Iv IV CONT .Q24H NICOLE Ibuprofen 600 mg 02/27/24 15:51 02/29/24 08:14 Ibuprofen 600 Mg Tablet PO 600 mg Q6H PRN Administration Cramping Nifedipine 30 mg 02/28/24 13:25 02/29/24 08:15 Nifedipine 30 Mg Tab.Er.24 PO 30 mg DAILY NICOLE Administration Pantoprazole Sodium 40 mg 02/28/24 09:00 02/29/24 08:14 Pantoprazole 40 Mg Tablet PO 40 mg QAM NICOLE Administration Perflutren Lipid Microsphere 0 ml 02/27/24 15:08 Perflutren Lipid Microspheres 1.5 Ml Vial Diluted To 10 Ml Total Volume IV PUSH 03/01/24 15:09 ONCE PRN adequate visualization Protocol Radiology Results: ITS Impressions Head CT 02/27/24 12:40 IMPRESSION: No acute intracranial findings. Chest X-Ray 02/27/24 14:44 IMPRESSION: No acute cardiopulmonary pathology. Labs Labs: Laboratory Results - last 24 hr 02/28/24 14:30 Troponin I 0.012
--- NOTE | 2024-02-29 13:48 | PC.NURSE ---
This RN spoke on phone with Dr. Dasilva regarding missing echo report. MD states patient may go home at this time with the assumption that she will f/u with her OB in one week or less and continue to take her procardia daily as prescribed. RN repeated order back to confirm.
--- NOTE | 2024-03-05 15:15 | PM.DS ---
DS: Admitting Diagnosis Discharge Date 02/29/24 Admitting Diagnosis pre-eclampsia w/ severe features bradycardia DS: Discharge Diagnosis Discharge Diagnosis (1) Preeclampsia in period: Code(s): O14.95 - Unspecified pre-eclampsia, complicating the puerperium Status: Acute (2) Bradycardia: Code(s): R00.1 - Bradycardia, unspecified Status: Acute DS: Summary Hospital Course Hospital Course: Elizabeth is a 33yo now [id number], s/p on 02/18/24. She had been receiving PNC in [place]. She came to the ER due to having a severe headache and SOB. She presented to the ER where she was found to have severe range BPs requiring IV labetalol. After administration of IV labetalol, her HR was noted to be 44 bmp. Chest xray showed mild cardiomegaly. EKG showed bradycardia. Labs were normal. ECHO was also ordered on admission and performed on HD#2. She was started on IV magnesium sulfate for seizure prophylaxis and continued on that for 24 hours. She was ultimately started on nifedipine 30mg daily on HD#2 to help control her BPs. She was monitored for 24 hours off of magnesium as well and her BPs remained stable and she was asymptomatic. We were attempting to keep her inpatient while waiting on the ECHO read, but was informed it could take an additional 24-28 hours before we had the read. She remained stable without symptoms and was discharged home in a stable condition with plans of following up outpatient in office. Status at Discharge Functional status at discharge: independent ambulation Overall status at discharge: patient is back to baseline Time Spent with Patient Time attestation: Total time spent providing and/or coordinating discharge services: Time spent: Less than 30 minutes Exam Const: General: cooperative, comfortable and no acute distress Nutritional Appearance: obese Orientation/consciousness: patient oriented x3 Resp: Effort & Inspection: normal respiratory effort Auscultation: clear to auscultation bilaterally Cardio: Rate: regular rate GI: Inspection: non-distended GI Palp: No abdominal tenderness and Yes Soft to palpation Auscultation: normal bowel sounds : Other: fundus firm Skin: General skin exam: normal color Neuro: General: patient oriented x3 Extrem: General: normal to inspection Psych: Appearance: grossly normal Affect: normal affect Attitude: cooperative Discharge Plan Discharge Attending physician on discharge: Antonia Dasilva Consulting providers: Kristen Daley Izabella L. Discharging Clinician: Antonia Dasilva Anticipated Discharge Date/Time: 02/29/24 13:00 Patient Disposition: Home, Self-Care Activity: may shower and pelvic rest Diet: regular Discharge Instructions: Please continue to take procardia daily as prescribed by . Please followup with your OB or Dr. Dasilva within one week. If you have any questions or concerns, please call or visit the OB emergency room. Symptoms of severe pre eclampsia include: severe headache unrelieved by medication, severe BP readings (>160/110), dizziness, blurry vision, and upper belly pain. Patient Instructions: Preeclampsia and Eclampsia After Delivery (GEN) Stand Alone Forms: General Discharge Information Follow-up/Referrals: Antonia Dasilva MD [Physician] - 1 Week (for BP check) Discharge Medications: New nifedipine [Procardia XL] 30 mg Tablet Extended Release 24hr 30 mg PO DAILY Qty: 60 0RF Continued acetaminophen 325 mg Tablet 650 mg PO Q6H PRN (Reason: Mild Pain (1-3) Or Headache) Qty: 60 0RF docusate sodium 100 mg Capsule 100 mg PO BID PRN (Reason: Constipation) Qty: 60 0RF ibuprofen 600 mg Tablet 600 mg PO Q6H PRN (Reason: Cramping) Qty: 40 0RF esomeprazole magnesium [Nexium] 40 mg capsule,delayed release(DR/EC) 40 mg PO DAILY Qty: 14 0RF Date of admission: 02/27/24 14:47 Primary Care Provider: UNKNOWN,DOCTOR Admitting Provider: Antonia Dasilva Attending physician on admission: Antonia Dasilva Condition: Serious
== END 2024-02-29 14:17 | disposition home or self-care (01) | DRG 561 ==
LOC: ANHED 14:46 → ANHOBPP 15:16
PROVIDERS: Emergency Medicine; Nurse Practitioner; Admitting Provider Emergency Medicine; Emergency Provider Emergency Medicine; Visit Provider Obstetrics & Gynecology
DX: O14.15 Severe pre-eclampsia, complicating the puerperium (principal); O99.893 Other specified diseases and conditions complicating puerperium; R00.1 Bradycardia, unspecified; Z88.0 Allergy status to penicillin
CPT/HCPCS: 36415; 70450; 71045; 80053; 81001; 83615; 83735; 83880; 84484; 84550; 85025; 87086; 93005; 93306; 96374; 96375; 99285; A9270; J0360; J0780; J1200; J1885; J3475

== ENCOUNTER 2024-03-09 15:02 | Outpatient (CLI) | payer OTHER, SELFPAY ==
[2024-03-09] VITALS (40 sets, daily range): BP systolic 124–144; BP diastolic 87–100; PULSE 73–93; O2SAT 95–100; BMI 38.0
[2024-03-09 15:48] LABS: Basophils Percent Auto 0.4 % (0.2-1.2); Eosinophils Absolute Auto 0.3 K/mm3 (0-0.3); Eosinophils Percent Auto 4.1 % (0-4.4); Hematocrit 34.8 % (37.0-47.0); Hemoglobin 11.9 g/dL (12.0-15.0); Immature Granulocyte Absolute 0.03 K/mm3 (0.00-0.031); Immature Granulocyte Percent A 0.4 % (0-0.5); Lymphocytes Absolute Auto 1.77 K/mm3 (0.9-3.2); Lymphocytes Percent Auto 21.7 % (18.3-44.2); Mean Corpuscular HGB Conc 34.2 g/dl (32-36); Mean Corpuscular Hemoglobin 27.9 pg (26-34); Mean Corpuscular Volume 81.5 fl (80-100); Mean Platelet Volume 11.5 fl (7.4-10.4); Monocytes Absolute Auto 0.5 K/mm3 (0.1-0.6); Monocytes Percent Auto 5.7 % (2.6-8.5); Neutrophils Absolute Auto 5.5 K/mm3 (1.3-6.7); Neutrophils Percent Auto 67.7 % (45.5-73.1); Platelet Count Result 250 k/mm3 (150-375); Red Blood Count 4.27 M/mm3 (4.2-5.4); Red Cell Distribution Width 16.4 % (11.5-14.5); White Blood Count 8.1 K/mm3 (4.5-10.0)
[2024-03-09 15:58] LABS: Alanine Aminotransferase 16 U/L (6-35); Albumin Level 3.9 g/dL (3.5-5.1); Alkaline Phosphatase 95 U/L (38-126); Anion Gap 4 mmol/L (4-12); Aspartate Amino Transferase 29 U/L (14-36); Bilirubin,Total 0.8 mg/dL (0.2-1.3); Blood Urea Nitrogen 10 mg/dL (7-17); Calcium 8.9 mg/dL (8.4-10.2); Carbon Dioxide 27 mmol/L (22-30); Chloride 107 mmol/L (98-107); Estimated Glomerular Filt Rate > 60; Glucose 91 mg/dL (65-110); Potassium 3.9 mmol/L (3.4-5.0); Sodium 138 mmol/L (137-145); Uric Acid 4.7 mg/dL (2.5-7.5)
--- NOTE | 2024-03-09 16:00 | PC.NURSE ---
Pt states she has someone that can come pick her up with we give her something stronger for her headache.
--- NOTE | 2024-03-09 16:12 | PC.NURSE ---
Dr. Dill informed of this pt that delivered on 02/18/24, came back to hospital after delivery and diagnosed with preeclampsia and received Magnesium sulfate. Taking Procardia XL 30 mg po daily at home. Pt appears exhausted. Pt states baby and her 6 yr old has been keeping her up. Doesn't really have help at home because everyone works. Informed of pt's rating headache an 8, last dose of Tylenol and Motrin was at 1000 this am, BP's and lab results. Orders received for Fioricet.
[2024-03-09] MEDS: ACETAMINOPHEN/BUTALBITAL/CAFFEINE 325-50-40 MG TABLET (FIORICET) 1 TAB PO (16:27)
--- NOTE | 2024-03-09 18:08 | PC.NURSE ---
Dr. Dill informed pt's headache has resolved, she had a short nap, baby is staying with family overnight and her 6yr old is going with the dad until Tuesday. It will just be her and her 16 yr old at home tonight and pt thinks she will be able to rest. Orders received for discharge.
--- NOTE | 2024-03-09 19:37 | P.PNOB_ITS ---
OB - Triage/Final Diagnosis Visit Information Date of evaluation: 03/09/24 Reason for evaluation: other ( headache) Comments/Additional reasons for admission: I have assessed the risk for this patient, Elizabeth Jain, and determined that she would benefit from observation care. Evaluation Laboratory results: Laboratory Tests 03/09/24 15:29 WBC 8.1 RBC 4.27 Hgb 11.9 L Hct 34.8 L MCV 81.5 MCH 27.9 MCHC 34.2 RDW 16.4 H Plt Count 250 MPV 11.5 H Immature Gran % (Auto) 0.4 Neut % (Auto) 67.7 Lymph % (Auto) 21.7 [place] % (Auto) 5.7 Eos % (Auto) 4.1 Baso % (Auto) 0.4 Lymph # (Auto) 1.77 [place] # (Auto) 0.5 Eos # (Auto) 0.3 Baso # (Auto) 0.0 Abs Immat Gran (auto) 0.03 Absolute Neuts (auto) 5.5 Absolute Nucleated RBC 0.000 Nucleated RBC % 0.0 Sodium 138 Potassium 3.9 Chloride 107 Carbon Dioxide 27 Anion Gap 4 BUN 10 Creatinine 0.60 L Estim Creat Clear Calc Not Reportable Estimated GFR > 60 Glucose 91 Uric Acid 4.7 Calcium 8.9 Total Bilirubin 0.8 AST 29 ALT 16 Alkaline Phosphatase 95 Total Protein 8.0 Albumin 3.9 Vital signs: Vital Signs - 24 hr 03/09/24 15:25 03/09/24 15:28 03/09/24 15:31 Pulse Rate 83 79 Blood Pressure 127/94 H 124/91 H Blood Pressure [Left Arm] Pulse Oximetry 99 03/09/24 15:33 03/09/24 15:38 03/09/24 15:43 Pulse Rate Blood Pressure Blood Pressure [Left Arm] Pulse Oximetry 98 99 99 03/09/24 15:48 03/09/24 15:49 03/09/24 15:53 Pulse Rate 79 Blood Pressure 131/90 Blood Pressure [Left Arm] Pulse Oximetry 99 99 03/09/24 15:58 03/09/24 15:58 03/09/24 16:01 Pulse Rate 83 Blood Pressure 144/100 H Blood Pressure [Left Arm] Pulse Oximetry 98 96 03/09/24 16:03 03/09/24 16:08 03/09/24 16:14 Pulse Rate Blood Pressure Blood Pressure [Left Arm] Pulse Oximetry 96 95 96 03/09/24 16:16 03/09/24 16:19 03/09/24 16:24 Pulse Rate 77 Blood Pressure 141/94 H Blood Pressure [Left Arm] Pulse Oximetry 96 95 03/09/24 16:29 03/09/24 16:34 03/09/24 16:39 Pulse Rate Blood Pressure Blood Pressure [Left Arm] Pulse Oximetry 95 99 100 03/09/24 16:44 03/09/24 16:49 03/09/24 16:54 Pulse Rate Blood Pressure Blood Pressure [Left Arm] Pulse Oximetry 99 99 100 03/09/24 16:59 03/09/24 17:01 03/09/24 17:04 Pulse Rate 78 Blood Pressure 128/87 Blood Pressure [Left Arm] Pulse Oximetry 100 98 03/09/24 17:09 03/09/24 17:14 03/09/24 17:19 Pulse Rate Blood Pressure Blood Pressure [Left Arm] Pulse Oximetry 98 98 97 03/09/24 17:24 03/09/24 17:29 03/09/24 17:34 Pulse Rate Blood Pressure Blood Pressure [Left Arm] Pulse Oximetry 98 97 97 03/09/24 17:39 03/09/24 17:44 03/09/24 17:49 Pulse Rate Blood Pressure Blood Pressure [Left Arm] Pulse Oximetry 98 97 98 03/09/24 17:54 03/09/24 17:59 03/09/24 18:01 Pulse Rate 77 Blood Pressure 132/92 H Blood Pressure [Left Arm] Pulse Oximetry 97 97 03/09/24 18:03 03/09/24 18:03 03/09/24 15:24 Pulse Rate 83 Blood Pressure Blood Pressure [Left Arm] 127/94 H Pulse Oximetry 98 100
== END 2024-03-09 19:15 | disposition home or self-care (01) ==
LOC: ANHOBOP 15:06 → ANHOBPP 15:08
PROVIDERS: Student in an Organized Health Care Education/Training Program; Visit Provider Obstetrics & Gynecology
DX: O13.9 Gestational [pregnancy-induced] hypertension without significant proteinuria, unspecified trimester (principal); Z3A.00 Weeks of gestation of pregnancy not specified
CPT/HCPCS: 36415; 80053; 84550; 85025; 99199; A9270

== ENCOUNTER 2024-03-26 17:36 | Emergency (ER) | payer OTHER, SELFPAY ==
[2024-03-26 18:30] VITALS: BP 139/100; PULSE 80; RESP 18; TEMP 36.6; O2SAT 100
--- NOTE | 2024-03-26 18:32 | ED.GENADULT ---
HPI - General Adult General Chief complaint: Headache <Cortes Mon APRN - Last Filed: 03/26/24 18:34> Stated complaint: HEADACHE, BP 140/100 POST 02/18/24 <Cortes Mon APRN - Last Filed: 03/26/24 18:34> Time Seen by Provider: 03/26/24 21:07 <Cortes Mon APRN - Last Filed: 03/26/24 18:34> 33 y/o female presents with headache and nausea since last night. patient states she has been having high blood pressure since last week. her pcp increased her bp medication 1 week ago but her bp was 140/100 tonight. patient has no other complaints. A&OX3 normocephalic extrenal ears wnl patient moving all extremities BS CTA heart RRR GCS 15 <Cortes Mon APRN - Last Filed: 03/26/24 18:34> History of Present Illness HPI narrative: patient is a 33-year-old female who presents emergency department with chief complaint of headache and hypertension. Patient is a little over 6 weeks which she was complicated with having preeclampsia during delivery. The patient states that she has had headaches and is also had hypertension since then patient is seen OBGYN and they have adjusted her blood pressure medicines. The patient reports today she still had a headache and her pressures were elevated she decided to come to the emergency department. <Pteer Murillo MD - Last Filed: 03/26/24 23:15> Related Data Allergies/adverse reactions: Allergies Allergy/AdvReac Type Severity Reaction Status Date / Time Penicillins Allergy Hives Verified 02/27/24 09:49 <Cortes Mon APRN - Last Filed: 03/26/24 18:34> Review of Systems Review of Systems: A 10 system review of systems was completed on the patient and is negative except for what is stated in the HPI. Nursing and ancillary documentation was reviewed. <Peter Murillo MD - Last Filed: 03/26/24 23:15> [facility] Social History Social History: Social History Smoking status: Never smoker Substance use: never Do You Feel Safe in your Home?: Yes Lack of Transportation: No Lack of Food: Never True Current Housing: I Have Housing Concerned About Future Housing: No Difficulty Paying Gas/Electric Bills: No Difficulty Paying for Meds: No Currently Unemployed: No Education: Grade School Difficulty w/ Childcare or Family Care: No Spiritual care concerns: No <Cortes Mon APRN - Last Filed: 03/26/24 18:34> Exam Narrative: GENERAL: Well-appearing, well-nourished, and in no acute distress. HEAD: Normocephalic, atraumatic. EYES: PERRLA and EOMI. ENT: Nares clear, no rhinorrhea or epistaxis. Mucous membranes moist. NECK: Supple. CHEST: Clear to auscultation. No respiratory distress. HEART: Regular rate and rhythm. No murmur heard. Normal peripheral pulses. ABDOMEN: Soft, nontender, nondistended, normal active bowel sounds. EXTREMITIES: Normal range of motion. No edema. SKIN: Warm, dry, no rash. NEURO: No focal deficits. Alert and oriented x3. PSYCH: Normal mood and affect. <Peter Murillo MD - Last Filed: 03/26/24 23:15> Course Vital Signs Vital signs: Vital Signs Temperature 36.6 C 03/26/24 18:30 Pulse Rate 80 03/26/24 18:30 Respiratory Rate 18 03/26/24 18:30 Blood Pressure 139/100 H 03/26/24 18:30 Pulse Oximetry 100 03/26/24 18:30 Oxygen Delivery Room Air 03/26/24 18:30 Temperature 36.6 C 03/26/24 18:30 Pulse Rate 81 03/26/24 22:48 Respiratory Rate 15 03/26/24 22:48 Blood Pressure 128/96 H 03/26/24 22:48 Pulse Oximetry 99 03/26/24 22:48 Oxygen Delivery Room Air 03/26/24 21:16 <Cortes Mon APRN - Last Filed: 03/26/24 18:34> Vital Signs Temperature 36.6 C 03/26/24 18:30 Pulse Rate 80 03/26/24 18:30 Respiratory Rate 18 03/26/24 18:30 Blood Pressure 139/100 H 03/26/24 18:30 Pulse Oximetry 100 03/26/24 18:30 Oxygen Delivery Room Air 03/26/24 18:30 Temperature 36.6 C 03/26/24 18:30 Pulse Rate 81 03/26/24 22:48 Respiratory Rate 15 03/26/24 22:48 Blood Pressure 128/96 H 03/26/24 22:48 Pulse Oximetry 99 03/26/24 22:48 Oxygen Delivery Room Air 03/26/24 21:16 <Peter Murillo MD - Last Filed: 03/26/24 23:15> Medical Decision Making MDM Narrative Medical decision making narrative: Differential diagnosis includes hypertensive urgency, preeclampsia , hypertensive crisis, the patient's headache was treated hypertension was treated. The patient had a urinalysis that showed no protein liver enzymes were normal and uric acid were normal. The case was discussed with OBGYN who recommended the patient follow-up with primary care patient is of the will be started on a low-dose hydrochlorothiazide <Peter Murillo MD - Last Filed: 03/26/24 23:15> Vital Signs Vital Signs: Vital Signs Temperature 36.6 C 03/26/24 18:30 Pulse Rate 80 03/26/24 18:30 Respiratory Rate 18 03/26/24 18:30 Blood Pressure 139/100 H 03/26/24 18:30 Pulse Oximetry 100 03/26/24 18:30 Oxygen Delivery Room Air 03/26/24 18:30 Temperature 36.6 C 03/26/24 18:30 Pulse Rate 81 03/26/24 22:48 Respiratory Rate 15 03/26/24 22:48 Blood Pressure 128/96 H 03/26/24 22:48 Pulse Oximetry 99 03/26/24 22:48 Oxygen Delivery Room Air 03/26/24 21:16 <Cortes Mon APRN - Last Filed: 03/26/24 18:34> Vital Signs Temperature 36.6 C 03/26/24 18:30 Pulse Rate 80 03/26/24 18:30 Respiratory Rate 18 03/26/24 18:30 Blood Pressure 139/100 H 03/26/24 18:30 Pulse Oximetry 100 03/26/24 18:30 Oxygen Delivery Room Air 03/26/24 18:30 Temperature 36.6 C 03/26/24 18:30 Pulse Rate 81 03/26/24 22:48 Respiratory Rate 15 03/26/24 22:48 Blood Pressure 128/96 H 03/26/24 22:48 Pulse Oximetry 99 03/26/24 22:48 Oxygen Delivery Room Air 03/26/24 21:16 <Peter Murillo MD - Last Filed: 03/26/24 23:15> Lab Data Result diagrams: 03/26/24 21:10 03/26/24 21:10 <Cortes Mon APRN - Last Filed: 03/26/24 18:34> Labs: Lab Results 03/26/24 03/26/24 03/26/24 Range/Units 21:10 21:11 21:29 WBC 9.0 (4.5-10.0) K/mm3 RBC 4.52 (4.2-5.4) M/mm3 Hgb 12.6 (12.0-15.0) g/dL Hct 36.4 L (37.0-47.0) % MCV 80.5 (80-100) fl MCH 27.9 (26-34) pg MCHC 34.6 (32-36) g/dl RDW 17.1 H (11.5-14.5) % Plt Count 210 (150-375) k/mm3 MPV 10.8 H (7.4-10.4) fl Immature Gran % (Auto) 0.3 (0-0.5) % Neut % (Auto) 58.8 (45.5-73.1) % Lymph % (Auto) 30.0 (18.3-44.2) % [place] % (Auto) 5.6 (2.6-8.5) % Eos % (Auto) 5.0 H (0-4.4) % Baso % (Auto) 0.3 (0.2-1.2) % Lymph # (Auto) 2.70 (0.9-3.2) K/mm3 [place] # (Auto) 0.5 (0.1-0.6) K/mm3 Eos # (Auto) 0.5 H (0-0.3) K/mm3 Baso # (Auto) 0.0 (0.0-0.1) K/mm3 Abs Immat Gran (auto) 0.03 (0.00-0.031) K/mm3 Absolute Neuts (auto) 5.3 (1.3-6.7) K/mm3 Absolute Nucleated RBC 0.000 (0.0-0.012) K/mm3 Nucleated RBC % 0.0 (0.0-0.2) % Sodium 137 (137-145) mmol/L Potassium 3.9 (3.4-5.0) mmol/L Chloride 104 (98-107) mmol/L Carbon Dioxide 30 (22-30) mmol/L Anion Gap 3 L (4-12) mmol/L BUN 6 L (7-17) mg/dL Creatinine 0.60 L (0.7-1.0) mg/dL Estim Creat Clear Calc 154 ml/min Estimated GFR > 60 (59 - ) Glucose 100 (65-110) mg/dL Uric Acid 5.2 (2.5-7.5) mg/dL Calcium 9.1 (8.4-10.2) mg/dL Magnesium 2.0 (1.6-2.3) mg/dL Total Bilirubin 0.7 (0.2-1.3) mg/dL AST 25 (14-36) U/L ALT 11 (6-35) U/L Alkaline Phosphatase 80 (38-126) U/L Total Protein 8.0 (6.3-8.2) g/dL Albumin 4.2 (3.5-5.1) g/dL Urine Color Yellow (Yellow) Urine Appearance Clear (Clear) Urine pH 7.0 (5.0-9.0) Ur Specific [place] 1.012 (1.001-1.035) Urine Protein Negative (Negative) mg/dL Urine Glucose (UA) Negative (Negative) mg/dL Urine Ketones Negative (Negative) mg/dL Ur Blood (Man) Negative (Negative) Urine Nitrate Negative (Negative) Urine Bilirubin Negative (Negative) Urine Urobilinogen 0.2 (<2.0) mg/dL Leukocyte Esterase Rfl Negative (Negative) ANA/UL <Cortes Mon, ELECTRICAL EQUIPMENT ASSEMBLER - Last Filed: 03/26/24 18:34> Lab Results 03/26/24 03/26/24 03/26/24 Range/Units 21:10 21:11 21:29 WBC 9.0 (4.5-10.0) K/mm3 RBC 4.52 (4.2-5.4) M/mm3 Hgb 12.6 (12.0-15.0) g/dL Hct 36.4 L (37.0-47.0) % MCV 80.5 (80-100) fl MCH 27.9 (26-34) pg MCHC 34.6 (32-36) g/dl RDW 17.1 H (11.5-14.5) % Plt Count 210 (150-375) k/mm3 MPV 10.8 H (7.4-10.4) fl Immature Gran % (Auto) 0.3 (0-0.5) % Neut % (Auto) 58.8 (45.5-73.1) % Lymph % (Auto) 30.0 (18.3-44.2) % [place] % (Auto) 5.6 (2.6-8.5) % Eos % (Auto) 5.0 H (0-4.4) % Baso % (Auto) 0.3 (0.2-1.2) % Lymph # (Auto) 2.70 (0.9-3.2) K/mm3 [place] # (Auto) 0.5 (0.1-0.6) K/mm3 Eos # (Auto) 0.5 H (0-0.3) K/mm3 Baso # (Auto) 0.0 (0.0-0.1) K/mm3 Abs Immat Gran (auto) 0.03 (0.00-0.031) K/mm3 Absolute Neuts (auto) 5.3 (1.3-6.7) K/mm3 Absolute Nucleated RBC 0.000 (0.0-0.012) K/mm3 Nucleated RBC % 0.0 (0.0-0.2) % Sodium 137 (137-145) mmol/L Potassium 3.9 (3.4-5.0) mmol/L Chloride 104 (98-107) mmol/L Carbon Dioxide 30 (22-30) mmol/L Anion Gap 3 L (4-12) mmol/L BUN 6 L (7-17) mg/dL Creatinine 0.60 L (0.7-1.0) mg/dL Estim Creat Clear Calc 154 ml/min Estimated GFR > 60 (59 - ) Glucose 100 (65-110) mg/dL Uric Acid 5.2 (2.5-7.5) mg/dL Calcium 9.1 (8.4-10.2) mg/dL Magnesium 2.0 (1.6-2.3) mg/dL Total Bilirubin 0.7 (0.2-1.3) mg/dL AST 25 (14-36) U/L ALT 11 (6-35) U/L Alkaline Phosphatase 80 (38-126) U/L Total Protein 8.0 (6.3-8.2) g/dL Albumin 4.2 (3.5-5.1) g/dL Urine Color Yellow (Yellow) Urine Appearance Clear (Clear) Urine pH 7.0 (5.0-9.0) Ur Specific [place] 1.012 (1.001-1.035) Urine Protein Negative (Negative) mg/dL Urine Glucose (UA) Negative (Negative) mg/dL Urine Ketones Negative (Negative) mg/dL Ur Blood (Man) Negative (Negative) Urine Nitrate Negative (Negative) Urine Bilirubin Negative (Negative) Urine Urobilinogen 0.2 (<2.0) mg/dL Leukocyte Esterase Rfl Negative (Negative) ANA/UL <Peter Murillo MD - Last Filed: 03/26/24 23:15> Discharge Plan Discharge Clinical Impression: Headache, Hypertension <Cortes Mon APRN - Last Filed: 03/26/24 18:34> Patient Disposition: Home, Self-Care <Cortes Mon APRN - Last Filed: 03/26/24 18:34> Condition: Stable <Cortes Mon APRN - Last Filed: 03/26/24 18:34> Instructions: Antibiotic Form, Acute Headache (ED), Hypertension (ED) <JUSTIN Olivas Last Filed: 03/26/24 18:34> Patient Language: Lithuanian <Cortes Mon APRN - Last Filed: 03/26/24 18:34> Prescriptions: New hydrochlorothiazide 12.5 mg tablet 12.5 mg PO DAILY Qty: 30 0RF No Action acetaminophen 325 mg Tablet 650 mg PO Q6H PRN (Reason: Mild Pain (1-3) Or Headache) Qty: 60 0RF docusate sodium 100 mg Capsule 100 mg PO BID PRN (Reason: Constipation) Qty: 60 0RF ibuprofen 600 mg Tablet 600 mg PO Q6H PRN (Reason: Cramping) Qty: 40 0RF nifedipine [Procardia XL] 30 mg Tablet Extended Release 24hr 30 mg PO DAILY Qty: 60 0RF esomeprazole magnesium [Nexium] 40 mg capsule,delayed release(DR/EC) 40 mg PO DAILY Qty: 14 0RF <Cortes Mon APRN - Last Filed: 03/26/24 18:34> Follow-up/Referrals: PHYSICIAN,CUSTOMER PROGRAM MANAGER [Primary Care Provider] - Caleb Mccullough MD [Physician] - <Cortes Mon APRN - Last Filed: 03/26/24 18:34> Time of Disposition: 23:15 <Cortes Mon APRN - Last Filed: 03/26/24 18:34> 23:15 <Peter Murillo MD - Last Filed: 03/26/24 23:15>
[2024-03-26 21:16] VITALS: BP 143/108; PULSE 68; RESP 15; O2SAT 99
[2024-03-26 21:18] LABS: Basophils Percent Auto 0.3 % (0.2-1.2); Eosinophils Absolute Auto 0.5 K/mm3 (0-0.3); Hematocrit 36.4 % (37.0-47.0); Hemoglobin 12.6 g/dL (12.0-15.0); Immature Granulocyte Absolute 0.03 K/mm3 (0.00-0.031); Immature Granulocyte Percent A 0.3 % (0-0.5); Mean Corpuscular HGB Conc 34.6 g/dl (32-36); Mean Corpuscular Hemoglobin 27.9 pg (26-34); Mean Corpuscular Volume 80.5 fl (80-100); Mean Platelet Volume 10.8 fl (7.4-10.4); Monocytes Absolute Auto 0.5 K/mm3 (0.1-0.6); Monocytes Percent Auto 5.6 % (2.6-8.5); Neutrophils Absolute Auto 5.3 K/mm3 (1.3-6.7); Neutrophils Percent Auto 58.8 % (45.5-73.1); Platelet Count Result 210 k/mm3 (150-375); Red Blood Count 4.52 M/mm3 (4.2-5.4); Red Cell Distribution Width 17.1 % (11.5-14.5)
[2024-03-26 21:30] LABS: Alanine Aminotransferase 11 U/L (6-35); Albumin Level 4.2 g/dL (3.5-5.1); Alkaline Phosphatase 80 U/L (38-126); Anion Gap 3 mmol/L (4-12); Aspartate Amino Transferase 25 U/L (14-36); Bilirubin,Total 0.7 mg/dL (0.2-1.3); Blood Urea Nitrogen 6 mg/dL (7-17); Calcium 9.1 mg/dL (8.4-10.2); Carbon Dioxide 30 mmol/L (22-30); Chloride 104 mmol/L (98-107); Estimated CRCL calculation 154 ml/min; Estimated Glomerular Filt Rate > 60; Glucose 100 mg/dL (65-110); Potassium 3.9 mmol/L (3.4-5.0); Sodium 137 mmol/L (137-145)
[2024-03-26 21:31] LABS: Uric Acid 5.2 mg/dL (2.5-7.5)
[2024-03-26 21:38] LABS: Add Urine Microscopic? NO; Appearance Urine Clear (Clear); Bilirubin Urine Negative (Negative); Blood Urine Negative (Negative); Color Urine Yellow (Yellow); Glucose Urine UA Negative (Negative); Ketones Urine Negative (Negative); Leukocyte Esterase Ur Negative LEU/UL (Negative); Nitrate Urine Negative (Negative); Protein Urine Negative (Negative); Specific Grav Ur 1.012 (1.001-1.035); Urobilinogen Urine 0.2 mg/dL (<2.0)
[2024-03-26] MEDS: diphenhydrAMINE HCl INJ 50 MG/ML VIAL 25 MG IV PUSH (21:48)
[2024-03-26] MEDS: hydrALAZINE HCL 20 MG/ML VIAL 10 MG IV PUSH (21:48)
[2024-03-26] MEDS: METOCLOPRAMIDE HCL INJ 10 MG/2 ML VIAL IV PUSH (21:48)
[2024-03-26 22:24] VITALS: BP 144/104; PULSE 79; RESP 14; O2SAT 100
[2024-03-26 22:48] VITALS: BP 128/96; PULSE 81; RESP 15; O2SAT 99
[2024-03-26 23:42] VITALS: BP 120/95; PULSE 68; RESP 15; O2SAT 98
== END 2024-03-26 23:44 | disposition home or self-care (01) ==
PROVIDERS: Nurse Practitioner Family; Emergency Provider Emergency Medicine
DX: R51.9 Headache, unspecified (principal); I10 Essential (primary) hypertension
CPT/HCPCS: 36415; 80053; 81003; 83735; 84550; 85025; 96374; 96375; 96376; 99284; J0360; J1200; J2765

== ENCOUNTER 2024-05-16 17:48 | Emergency (ER) | payer OTHER, SELFPAY ==
[2024-05-16 17:57] VITALS: BP 139/99; PULSE 76; RESP 16; TEMP 37.1; O2SAT 100
--- NOTE | 2024-05-16 17:57 | ED.DENTAL ---
HPI - Dental/Oral General Chief complaint: Dental/Oral Stated complaint: Dental Pain Time Seen by Provider: 05/16/24 18:46 Source: patient Mode of arrival: ambulatory Limitations: no limitations History of Present Illness HPI Narrative: 33-year-old female presents with concern for right lower dental pain and swelling to her jaw. She reports the swelling started this morning. She has taken Tylenol without relief. She reports a broken tooth at that area that she broke while she was a few months ago. She is no longer and is not breast feeding MD Complaint: tooth pain Related Data Home Medications ?Medication ?Instructions ?Recorded ?Confirmed ?Last Taken ?Type acyclovir 400 mg tablet mg 05/16/24 Unknown History Allergies Allergy/AdvReac Type Severity Reaction Status Date / Time Penicillins Allergy Hives Verified 05/16/24 17:57 Review of Systems Review of Systems: CONSTITUTIONAL: Denies malaise, chills, sweats, or fever. EYES: Denies visual changes ENT: Denies rhinorrhea, congestion, sinus pain, otalgia or sore throat. Reports right lower dental pain CARDIOVASCULAR: Denies chest pain, palpitations RESPIRATORY: Denies cough or dyspnea. SKIN: Denies rash or itching. MUSCULOSKELETAL: Denies myalgia. NEUROLOGIC: Denies numbness, weakness, or headache. All systems reviewed & are unremarkable except as noted in HPI and below PMFSH Social History Social History Smoking status: Never smoker Substance use: never Do You Feel Safe in your Home?: Yes Lack of Transportation: No Lack of Food: Never True Current Housing: I Have Housing Concerned About Future Housing: No Difficulty Paying Gas/Electric Bills: No Difficulty Paying for Meds: No Currently Unemployed: No Education: Grade School Difficulty w/ Childcare or Family Care: No Spiritual care concerns: No Comments At time of signature, agree with nursing past medical, surgical, social and family history. There is no relevant family history pertinent to the presenting complaint Exam Narrative: GENERAL: Well-appearing, well-nourished, and in no acute distress. HEAD: Normocephalic, atraumatic. EYES: PERRLA, sclera clear ENT: Nares clear, turbinates pink, no rhinorrhea or epistaxis. Mucous membranes moist. TM pearly adams with sharp light reflex bilaterally; no tragal tenderness. Oropharynx without erythema or lesions. Tonsils not enlarged and without exudate. Tooth number 27 broken, caries, swelling noted beneath tooth number 27 in the jaw NECK: Supple. No lymphadenopathy. CHEST: No respiratory distress. Speaks in full sentences. HEART: Regular rate and rhythm. SKIN: Warm, dry, no visible rash. NEURO: Alert and oriented x3. PSYCH: Normal mood and affect Course Course Emergency Course: Patient is aware of diagnosis, understands and agrees to treatment plan. Anticipatory guidance given. Patient agrees to follow-up as directed and is aware of reasons to seek care at the emergency department. Portions of this record may have been created with voice recognition software Level of Care: Express Care Visit Vital Signs Vital signs: Reviewed. MDM - Dental/Oral MDM Narrative Medical decision making narrative: I evaluated this in the [facility]. History is obtained from patient who is an independent historian and physical exam was performed.? Available medical records were reviewed. ? Exam findings and relevant testing show no acute concerns or changes; patient is non-toxic appearing and is in no distress. Patients pain and complaint coupled with physical findings are consistant with dentalgia. There are no focal signs of space occupying lesions that are compromising to the airway; no dysphagia, odynophagia, dysphonia, or dyspnea. No uvular deviation or soft palate edema. Patient is non-toxic appearing. The floor of the mouth is soft with no signs of Ricardo's Angina; no induration below mandible, no neck pain. Patient is without trismus or drooling and able to swallow secretions. Patient is felt appropriate for discharge home with dental follow up. ? Differential diagnosis and treatment plan were discussed with the patient. Patient agrees with discussion and after shared medical decision making agrees with plan of care. All questions were answered to the patient's satisfaction. Patient is appropriate for outpatient treatment and follow-up. Differential Diagnosis Differential diagnosis: Likely gingival abscess, dental caries, toothache, dental abscess, fracture of tooth and aphthous ulcer Critical Care Time Critical Care Time Critical Care Time: No Discharge Plan Discharge Clinical Impression: Dental abscess Patient Disposition: Home, Self-Care Condition: Stable Instructions: Antibiotic Form, Dental Abscess (ED) Additional Instructions: Take antibiotic as directed Avoid temperature extremes May apply heat or ice to the face Gentle brushing and flossing Take 2 extra strength Tylenol, 4 ibuprofen, 80 mg of caffeine at same time. You can do this every 6 hours. Do not do this for more than 2 - 3 days. You can substitute 25 mg Benadryl at nighttime for caffeine to help you sleep. Do this for no more than 3 days. Follow-up with the dentist as soon as possible - see the list provided Patient Language: Hungarian Prescriptions: New clindamycin HCl 300 mg capsule 300 mg PO Q8H 7 Days Qty: 21 0RF No Action acyclovir 400 mg tablet hydrochlorothiazide 12.5 mg tablet 12.5 mg PO DAILY Qty: 30 0RF esomeprazole magnesium [Nexium] 40 mg capsule,delayed release(DR/EC) 40 mg PO DAILY Qty: 14 0RF nifedipine [Procardia XL] 30 mg tablet extended release 24hr 30 mg PO DAILY Qty: 60 0RF Follow-up/Referrals: PHYSICIAN,MACHINE OPERATOR PICKER [Primary Care Provider] - Time of Disposition: 18:52
== END 2024-05-16 19:00 | disposition home or self-care (01) ==
PROVIDERS: Emergency Provider Nurse Practitioner
DX: K04.7 Periapical abscess without sinus (principal)
CPT/HCPCS: 99213; G0463

== ENCOUNTER 2024-10-30 13:38 | Emergency (ER) | payer OTHER, SELFPAY ==
--- NOTE | ~2024-10-30 | US_ITS ---
EXAMINATION: US pelvic complete w TV DATE: 10/30/2024 17:53 INDICATION: vaginal bleeding TECHNIQUE: Multiple transabdominal and endovaginal sonographic images of the pelvis were obtained. COMPARISON: None. FINDINGS: Uterus: 9.3 x 4.8 x 6.1 cm. Endometrial complex measures 3 mm. Right Ovary: 4.9 x 2.5 x 2.7 cm. Vascular flow is present. Circumscribed, anechoic 4.1 cm simple cyst . Left Ovary: 2.9 x 1.3 x 2.0 cm. Vascular flow is present. Irregular, avascular hypoechoic structure, likely small hemorrhagic cyst or corpus luteal cyst There is minimal free fluid in the pelvis, within physiologic range. IMPRESSION: Normal pelvic sonogram findings. Reviewed, dictated and finalized at location K.
[2024-10-30 13:43] VITALS: BP 121/87; PULSE 82; RESP 16; TEMP 36.6; O2SAT 100
--- OUTSIDE RECORDS SUMMARY | 2024-10-30 13:45 | XMS_ITS | Clinical Summary ---
Author Organization [facility] Address [address] [place] [address] Care Team Providers Care Magazine Designer Name Role Phone Caren Anderson MD Primary Care Provider + Source Comments [facility],non-owned Affiliates and Associated Physician Practices is amultiple site organization consisting of ambulatory clinics and hospital sitesin [place], [place], [place] and [place]. This disclosure is being madepursuant to the Care Everywhere program and may not contain all information available regarding this patient. Last updated 17.[facility] Allergies Active Allergy Reactions Criticality Noted Date Comments Penicillins Itching High 09/21/2023 Medications * This document contains information received from the source organization and may not represent a complete record from that organization. * Be aware that medications may not be up to date on this document. Alwaysverify current medications with the patient. Vit-Fe Fumarate-FA ( VITAMIN) 28-0.8 MG tabletIndicatio ns: Take 1 tablet by mouth once daily Reasons: Active polyethylene glycol 3350 (MIRALAX) powder Take 17 g by mouth once daily 8 Active Additional Information Patient not taking.Reported on 08/30/2017 Fe-Succ Ac-C-Thre Ac-B12-FA (FERREX 150 FORTE PLUS) 50-100 MG capsule Take 1 capsule by mouth once daily 30 capsule 5 8 Active valACYclovir (VALTREX) 500 MG tablet Take 1 tablet by mouth 2 times daily 60 tablet 1 8 Active calcium carbonate (TUMS) 500 MG chew tabletIndicatio ns:Heartburn Take 1 tablet by mouth 3 times daily as needed for Heartburn Reasons: Heartburn Active ibuprofen (MOTRIN) 600 MG tablet Take 1 tablet by mouth every 6 hours as needed for Pain 60 tablet 2 8 Active docusate sodium (COLACE) 100 MG capsule Take 1 capsule by mouth 2 times daily 60 capsule 2 8 Active ibuprofen (MOTRIN) 600 MG tablet Take 1 tablet by mouth every 6 hours as needed for Pain 60 tablet 2 8 Active docusate sodium (COLACE) 100 MG capsule Take 1 capsule by mouth 2 times daily as needed for Constipation 60 capsule 2 8 Active Active Problems Problem Noted Date Diagnosed Date Platelets decreased 09/29/2017 Overview (11/16/2017): 09/28/17: 140 11/15/17: 125 Excess weight gain in , third trimester 09/28/2017 Pelvic pain affecting , antepartum 07/11 Abdominal pain affecting 06/29/2017 Supervision of high-risk of robin evans 06/14/2017 Overview (11/21/2017): [place] U/S PNL: O+/NI/-/- HIV NR Pap: NILM, negative HPV, 2015 GC/CT: neg/neg Urine cx: UDS: negative H/H/P: 9.6/26.7/156, Ferritin 23 HgbE: WNL Genetics: Anatomy US: Flu shot: LFT's: wnl (06/11) HCV: NR Early GCT: 84 Third trimester: GCT: 110 H/H/P: 9.9/28.5/140 RPR: NR HIV: NR Tdap: GBS: neg Obesity (BMI 30-39.9) 06/14/2017 Overview (06/14/2017): Early GCT: WISH patient 06/14/2017 Overview (06/14/2017): Patient denies history of cocaine use, states it likely was in her marijuana Anemia affecting 06/14/2017 Overview (09/29/2017): 9.9/28.5/140 (09/28) Ferritin: 23 Urinary tract infection affecting 09/2017 Right Ovarian cyst, complex 06/14/2017 Overview (06/14/2017): 06/14/17: 10.4 x 8.6 x 7.1 cm Marijuana use, in 06/14/2017 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 (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/2017): vaginal pcr positive Resolved Problems Problem Noted Date Diagnosed Date Resolved Date Gall stones 06/14/2017 06/14/2017 Immunizations Immunization Administration Dates Next Due HEP A VACCINE, ADULT 07/14/2017 HEP B VACCINE, ADULT 3 DOSE 10/18/2017, 8 Human Papilloma Virus Vaccine 12/02/2015, 016 MMR 12/14/2017 TDAP (7yrs+) 10/18/2017 Social History Tobacco Use Types Packs/Day Years Used Date Smoking Tobacco: Former Smokeless Tobacco: Never Alcohol Use Standard Drinks/Week Comments No 0 (1 standard drink = 0.6 oz pur e alcohol) Comments No Sex and Gender Information Value Date Recorded Sex Assigned at Not on file 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 Gender Identity Not on file Sexual Orientation Not on file Last Filed Vital Signs Vital Sign Reading Time Taken Comments Blood Pressure 106/78 02/10/2024 11:09 AM CDT Pulse 84 02/10/2024 11:09 AM CDT Temperature 36.3 C (97.4 F) 12/14/2017 8:24 AM CDT Respiratory Rate 18 12/14/2017 8:24 AM CDT Oxygen Saturation 100% 12/14/2017 8:24 AM CDT Inhaled Oxygen Concentration - - Weight 110 kg (242 lb 9.6 oz) 12/12/2017 7:36 AM CDT Height 170.2 cm (5' 7) 12/12/2017 7:36 AM CDT Body Mass Index 38 12/12/2017 7:36 AM CDT Plan of Treatment Health Maintenance Due Date Last Done Comments PAP SMEAR 09/18/2012 HPV VACCINE (3 - 3-dose series) 03/23/2016 12/02/2015, 09/22/2015 HEPATITIS B VACCINE (3 of 3 - 19+ 3-dose series) 01/13/2018 10/18/2017, 07/14/2017 COVID-19 VACCINE (2 - season) 2023 10/07/2020 DEPRESSION SCREENING 04/11/2024 INFLUENZA VACCINE (#1) 2024 DTAP/TDAP/TD VACCINES (2 - Td or Tdap) 10/19/2027 10/18/2017 ZOSTER VACCINE (1 of 2) 09/18/2041 HEPATITIS C SCREENING Completed 09/28/2017 , 06/14/2017, 06/14/2017, Additional history exists HIV SCREENING Completed 09/28/2017, 05/10/2017 HIB VACCINE Aged Out No longer eligi ble based on patient's age to complete this topic MENINGOCOCCAL (Group B) VACCINE SHARED DECISION-MAKING Aged Out No longer eligible based on patient's age to complete this topic MENINGOCOCCAL GROUPS A/C/Y/W VACCINE Aged Out No longer eligible based on patient's age to complete this topic PNEUMOCOCCAL VACCINE Aged Out No long er eligible based on patient's age to complete this topic Procedures Procedure Name Priority Date/Time Associated Diagnosis Comments CULTURE STREP B Routine 11/15/2017 2:33 PM CDT Supervision of high-risk of young multigravida HEPATITIS C ANTIBODY Routine 09/28/2017 11:38 AM CDT Supervision of high-risk of young multigravida GLUCOSE CHALLENGE Routine 09/28/2017 11: 38 AM CDT Supervision of high-risk of young multigravida HIV-1 HIV-2 ANTIBODY + HIV P24 AG PANEL Routine 09/28/2017 11:38 AM CDT Supervision of high-risk of young multigravida from Last 3 Months or Most Recently Relevant to Health Maintenance Results * CULTURE STREP B (11/15/2017 2:33 PM CDT) Culture Strep B Negative for beta-hemolytic Streptococcus Group B MARISSA 11/18/2017 10:14 AM CDT [facility] Microbiology MISCELLANEOUS SAMPLES / Unknown Collection / Unknown 11/15/2017 2:33 PM CDT 11/15/2017 3:08 PM CDT Moriah Mojica CONCRETE BLOCK LAYER-TALENT ACQUISITION PROJECT MANAGER LAB - MICROBIOLOGY ORD ERABLES Final Result [facility] [address] [place] [address], [facility] [phone] * HIV-1 HIV-2 ANTIBODY + HIV P24 AG PANEL (09/28/2017 11:38 AM CDT) HIV1/2 Ab + P24 Ag Non Reactive Non Reactive 09/28/2017 4:56 PM CDT [facility] Blood BLOOD SPECIMEN / Unknown Venipuncture / Unknown 09/28/2017 11:38 AM CDT 09/28/2017 11:50 AM CDT Narrative [facility] - 09/28/2017 4:56 PM CDT No Laboratory evidence of HIV infection. Gissell Kaminski CONCRETE BLOCK LAYER-TALENT ACQUISITION PROJECT MANAGER LAB - CHEMISTRY ORDERAB LES Final Result Performing Organization Address City/[facility]/ZIP Co de Phone Number [facility] [address] [place] [phone] * GLUCOSE CHALLENGE (09/28/2017 11:38 AM CDT) Glucose Challenge 110 64 - 140 mg/dL 09/28/2017 12:14 PM CDT [facility] Glucose Challenge Time 1 hr 09/28/2017 12:14 PM CDT [facility] Blood BLOOD SPECIMEN / Unknown Venipuncture / Unknown 09/28/2017 11:38 AM CDT 09/28/2017 11:51 AM CDT Gissell Kaminski CONCRETE BLOCK LAYER-TALENT ACQUISITION PROJECT MANAGER LAB - CHEMISTRY ORDERAB LES Final Result [facility] [address] [place] [address] * HEPATITIS C ANTIBODY (09/28/2017 11:38 AM CDT) HCV Antibody Screen Non Reactive Non Reactive 09/28/2017 1:05 PM CDT [facility] HCV S/C Ratio 0.11 0.00 - 0.79 09/28/2017 1:05 PM CDT [facility] Comment: Vyspkv-kq-suhqfm ratio (S/CO) <0.80: Non Reactive Blood BLOOD SPECIMEN / Unknown Venipuncture / Unknown 09/28/2017 11:38 AM CDT 09/28/2017 11:50 AM CDT Narrative [facility] - 09/28/2017 1:05 PM CDT Non Reactive - Antibodies to Hepatitis C virus (HCV) were not detected, result does not exclude early acute HCV infection. Gissell Kaminski CONCRETE BLOCK LAYER-TALENT ACQUISITION PROJECT MANAGER LAB - CHEMISTRY ORDERAB LES Final Result Performing Organization Address City/State/[facility] de Phone Number [facility] [address] [place], [place] [phone] from Last 3 Months or Most Recently Relevant to Health Maintenance Insurance MEDICAID - [place] [facility] MEDICARE MANAGED CARE PLAN GENERIC MEDICARE ADV Advance Directives * Full Code (Latest Code Status on File) Date Activated Date Inactivated Comments 12/12/2017 9:03 AM 12/14/2017 1:44 PM * Full Code Date Activated Date Inactivated Comments 12/12/2017 7:34 AM 12/12/2017 9:03 AM * Full Code Date Activated Date Inactivated Comments 08/05/2017 1:03 PM 08/05/2017 3:57 PM * Full Code Date Activated Date Inactivated Comments 07/06/2017 3:23 PM 07/07/2017 7:02 PM * Full Code Date Activated Date Inactivated Comments 07/06/2017 9:51 AM 07/06/2017 3:23 PM Care Teams Magazine Designer Relationship Specialty Start Date End Date Caren Anderson MD [address] [place] [phone] PCP - General 07/21/17
--- OUTSIDE RECORDS SUMMARY | 2024-10-30 13:45 | XMS_ITS | Data Portability ---
Author Organization [facility] Address [address] [place] [address] Care Team Providers Care Piano Assembler Name Role Phone LETICIA DESIREE Cardiology Coordinator Assessment Encounter Date Assessment Date Assessment LastModified by Organization Details LastModified Time 02/13/2024 02/13/2024 incomplete vitals collected by support team. Unable to assess vitals completely. Not available 02/20/2024 02:03:06 Plan of Treatment Reminders Order Date Submit Date Provider Last Modified By Organization Details Last Modified Time Details Appointments None recorde d. Lab vaginal pathoge ns panel, REJI+pro be, vaginal fluid 2024 025 JANIE Mueller, [address], [address], [place], [address], 5 07:13:31 vaginal pathoge ns panel, REJI+pro be, vaginal fluid 2024 025 JANIE Mueller, 2022 Joshua [address], [address], [place], [address], 5 08:25:53 CBC w/ auto diff 2023 024 JANIE Mueller, 2022 [address], [address], [place], [address], 4 10:37:11 CMP, serum or plasma 2023 024 JANIE Mueller, 2022 [address], [address], [place], [address], 4 10:37:06 protein :creati nine ratio, urine 2023 024 [place] [facility], [address], [address], [place], [address], 4 10:37:08 uric acid, serum or plasma 2023 024 [facility], 20[address], [address], [place], [address], 4 10:37:09 ldh, serum or plasma 2023 024 [place] [facility], [address], [address], [place], [address], 4 10:37:10 urinaly sis, dipstic k 2023 024 [email or web address] In-Office Order, Internal Use Only DO Not Attach Compendium DO Not Attach Compendium, Do Not Delete/merge, 12:05:09 pregnan cy test, urine 2023 024 [email or web address] In-Office Order, Internal Use Only DO Not Attach Compendium DO Not Attach Compendium, Do Not Delete/merge, [id number] 4 12:05:09 CBC w/ auto diff 2023 024 [email or web address], [address], [address], [place], [address], 4 17:35:01 urinaly sis, dipstic k 2023 024 [email or web address] In-Office Order, Internal Use Only DO Not Attach Compendium DO Not Attach Compendium, Do Not Delete/merge, [id number] 4 11:32:36 urinaly sis, dipstic k 2023 024 [email or web address] In-Office Order, Internal Use Only DO Not Attach Compendium DO Not Attach Compendium, Do Not Delete/merge, [id number] 4 11:50:07 culture , urine 2023 [place] [facility], 2022 Joshua Bartholomew, [address], [address], 4 03:09:18 Referral None recorde d. Procedures None recorde d. Surgeries None recorde d. Imaging None recorde d. Medication Orders acyclov ir 400 mg tablet 2024 025 [facility] #[facility]50, [address], [place], [id number], 5 16:14:45 norethi ndrone acetate 5 mg tablet 2024 025 [email or web address] #60854, [address], [place], [id number], 5 05:02:02 hydroch lorothi azide 12.5 mg tablet 2024 025 [email or web address] #54807, [address], [place], [id number], 5 16:14:46 chlorhe xidine glucona te 0.12 % mouthwa sh 2024 025 [email or web address] #[id number], [address], [place], [id number], 5 16:14:43 Nexplan on 68 mg subderm al implant 2023 024 [email or web address] Not available 4 13:08:44 acyclov ir 400 mg tablet 2023 024 [email or web address] #43647, [address], [place], [id number], 4 11:32:58 nifedip ine ER 60 mg tablet, extende d release 24 hr 2023 025 [email or web address] #71919, [address], [place], [id number], 5 15:19:11 Prenata l 28 mg iron-80 0 mcg tablet 2023 024 [email or web address] #[id number], [address], [place], [id number], 4 11:32:58 Patient TargetsNo targets recorded. Patient Instructions Encounter Date Encounter Id Patient Instructions Last Modified By Organization Details Last Modified Time 02/13/2024 [id number] Attending Physician Attestation S: 33 yo at 39w0d. 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 Went to L&D triage last week for concerning O: BP 109/70. FH 40 cm, FHR 164. SVE 0.5 cm. A/P: Routine OB care - Kick count counseling. RTC in 1 week. gHTN - Controlled. GBS positive - Needs Abx in labor HSV infection - On PPx I did not personally see or examine the patient with the resident. I was physically present to provide indirect supervision through entire encounter. Plan discussed with resident as documented in my brief note above. Jessica Hare MD Not available 02/13/2024 11:59:37 03/19/2024 [id number] On the date of this encounter, I was immediately available to assist the resident/fellow in the care of the patient, and have reviewed and agree with the resident s findings and plan of care as discussed during appointment. ~MD Leticia [email or web address] Not available 03/19/2024 11:36:05 03/26/2024 [id number] preeclampsia: ca re instructions [email or web address] Not available 03/26/2024 12:05:09 Attending Physician Attestation S: 33 yo here for visit and Nexplanon placement. Has had pre-eclampsia and was anemic. Has migraine headaches. No chest pain, SOB. O: BP 140/100 -> 124/82. No BLE edema. Lungs CTAB. Udip neg protein. A/P: Contraception - Nexplanon placed. pre-eclampsia - S/p admission with MgSO4. Has headaches. Repeat PIH labs. Continue nifedipine 60 mg daily. RTC in 1 week for BP check. I was physically present during the entire procedure (Nexplanon placement) and provided direct supervision throughout procedure duration. Plan discussed with resident as documented in my brief note above. MD bonnie [email or web address] Not available 03/26/2024 14:35:37 05/07/2024 [id number] Attending Physician Attestation S: 33 yo F with vaginal discharge similar to previous BV x1 week. O: BP 102/70. BMI 39.2. A/P: Vaginal discharge - f/u NuSwab; will treat as indicated by results. I did not personally see or examine the patient with the resident. I was physically present to provide indirect supervision through entire encounter. Plan discussed with resident as documented in my brief note above. MD bonnie [email or web address] Not available 05/07/2024 12:51:25 08/27/2024 [id number] folliculitis: ca re instructions [email or web address] Not available 08/29/2024 20:29:34 Attending Physician Attestation S: 33 yo F here for AUB. Nexplanon placed in March. In the past, had needed exogenous hormone to help bleeding profile. Has vaginal irritation, dental problems. Needs refill of genital HSV PPx as well as HTN medication. O: BP 132/88. BMI 39.5 A/P: AUB - Secondary to Nexplanon. Treat with 10d progesterone burst. Genital HSV - Refilled home antiviral. Vaginal irritation - F/u NuSwab. Dental problems - Prescribed chlorhexidine wash. F/u with dentist. HTN - HCTZ refilled. Advised to establish with PCP. I did not personally see or examine the patient with the resident. I was physically present to provide indirect supervision through entire encounter. Plan discussed with resident as documented in my brief note above. MD bonnie [email or web address] Not available 08/27/2024 15:30:13 Reason for Referral None Reported. Results Created Date Observation Date Name Description Value Unit Range Abnormal Flag Note LastModifiedBy Organization Detail LastModifiedTime 01/16/20 24 01/18/2024 URINE CULTU RE, ROUTI NE urine culture, routine FINAL REPORT abnormal Not Available [facility] ([facility]) [address] [facility], [place], [address], 01/18/2024 07:13:44 01/16/2001/18/2024 URINE CULTU RE, ROUTI NE result 1 COMMEN T abnormal Beta hemol ytic Strep tococ cus, group B 10,00 0-25, 000 colon y formi ng units per mL Penic illin and ampic illin are drugs of choic e for treat ment of beta- hemol ytic strep tococ inder infec tions . Susce ptibi lity testi ng of penic illin s and other beta- lacta m agent s appro vin by the FDA for treat ment of beta- hemol ytic strep tococ inder infec tions need not be perfo rmed routi ron becau se nonsu scept ible isola domonique are extre ritu rare in any beta- hemol ytic strep tococ cus and have not been repor kalyani for Strep tococ cus pyoge reinaldo (grou p A). (CLSI ) Not Available [facility] ([facility]) [address] [facility], [place], [address], 01/18/2024 07:13:44 01/16/2001/18/2024 URINE CULTU RE, ROUTI NE result 2 COMMEN T Mixed uroge nital shiva 10,00 0-25, 000 colon y formi ng units per mL Not Available [facility] ([facility]) [address] [facility], [place], [address], 01/18/2024 07:13:44 01/16/2001/16/2024 urina lysis , dipst ick Leukocytes Large Not Available In-Offi ce Order Internal Use Only DO Not Attach Compendium DO Not Attach Compendium, Do Not Delete/merge, [id number] 01/16/2024 11:49:36 01/16/2001/16/2024 urina lysis , dipst ick Nitrite negati ve Not Available In-Office Order Internal Use Only DO Not Attach Compendium DO Not Attach Compendium, Do Not Delete/merge, [id number] 01/16/2024 11:49:36 01/16/20 24 01/16/2024 urina lysis , dipst ick Urobilinogen 1 Not Available In-Of fice Order Internal Use Only DO Not Attach Compendium DO Not Attach Compendium, Do Not Delete/merge, [id number] 01/16/2024 11:49:36 01/16/20 24 01/16/2024 urina lysis , dipst ick Protein 30 Not Available In-Office Order Internal Use Only DO Not Attach Compendium DO Not Attach Compendium, Do Not Delete/merge, [id number] 01/16/2024 11:49:36 01/16/20 24 01/16/2024 urina lysis , dipst ick pH 6.0 Not Available In-Office Order Internal Use Only DO Not Attach Compendium DO Not Attach Compendium, Do Not Delete/merge, [facility] 01/16/2024 11:49:36 01/16/20 24 01/16/2024 urina lysis , dipst ick Blood Non-He molyze d: Trace Not Available In-Office Order Internal Use Only DO Not Attach Compendium DO Not Attach Compendium, Do Not Delete/merge, [id number] 01/16/2024 11:49:36 01/16/20 24 01/16/2024 urina lysis , dipst ick Specific [place] 1.025 Not Available In-Off ice Order Internal Use Only DO Not Attach Compendium DO Not Attach Compendium, Do Not Delete/merge, [id number] 01/16/2024 11:49:36 01/16/20 24 01/16/2024 urina lysis , dipst ick Ketone Negati ve Not Available In-Office Order Internal Use Only DO Not Attach Compendium DO Not Attach Compendium, Do Not Delete/merge, [id number] 01/16/2024 11:49:36 01/16/20 24 01/16/2024 urina lysis , dipst ick Bilirubin Small Not Available In-Offic e Order Internal Use Only DO Not Attach Compendium DO Not Attach Compendium, Do Not Delete/merge, [id number] 01/16/2024 11:49:36 01/16/2001/16/2024 urina lysis , dipst ick Glucose Negati ve Not Available In-Office Order Internal Use Only DO Not Attach Compendium DO Not Attach Compendium, Do Not Delete/merge, [id number] 01/16/2024 11:49:36 01/23/2001/24/2024 NUSWA B VAGIN ITIS PLUS (VG+) atopobium vaginae LOW - 0 score Not Available [facility] ([facility]) [address] [facility], [place], [address], 01/24/2024 20:08:47 01/23/2001/24/2024 NUSWA B VAGIN ITIS PLUS (VG+) bvab 2 LOW - 0 score Not Available [facility] ([facility]) [address] [facility], [place], [address], 01/24/2024 20:08:47 01/23/2001/24/2024 NUSWA B VAGIN ITIS PLUS (VG+) megasphaera 1 LOW - 0 score Calcu late total score by monique marquis the 3 indiv idual bacte rial vagin osis (BV) marke r score s toget her. Total score is inter prete d as follo ws: Total score 0-1: Indic ates the absen ce of BV. Total score 2: Indet ermin ate for BV. Addit ional clini inder data shoul d be evalu ated to estab vern a diagn osis. Total score 3-6: Indic ates the prese nce of BV. Not Available [facility] ([facility]) [address] [facility], [place], [address], 01/24/2024 20:08:47 01/23/2001/24/2024 NUSWA B VAGIN ITIS PLUS (VG+) jorge albicans, REJI NEGATI VE negati ve Not Available [facility] ([facility]) [address] [facility], [place], [address], 01/24/2024 20:08:47 01/23/2001/24/2024 NUSWA B VAGIN ITIS PLUS (VG+) jorge glabrata, REJI NEGATI VE negati ve Not Available [facility] ([facility]) [address] [facility], [place], [address], 01/24/2024 20:08:47 01/23/2001/24/2024 NUSWA B VAGIN ITIS PLUS (VG+) trich vag by REJI NEGATI VE negati ve Not Available [facility] ([facility]) [address] [facility], [place], [address], 01/24/2024 20:08:47 01/23/2001/24/2024 NUSWA B VAGIN ITIS PLUS (VG+) chlamydia trachomatis, REJI NEGATI VE negati ve Not Available [facility] ([facility]) [address] [facility], [place], [address], 01/24/2024 20:08:47 01/23/2001/24/2024 NUSWA B VAGIN ITIS PLUS (VG+) neisseria gonorrhoeae, REJI NEGATI VE negati ve Not Available [facility] ([facility]) [address] [place], [address], 01/24/2024 20:08:47 01/23/2001/24/2024 COMP. METAB OLIC PANEL (14) glucose 68 mg/dL 70-99 below low normal Not Available [facility] ([facility]) [address] [place], [address], 01/25/2024 07:13:39 01/23/2001/24/2024 COMP. METAB OLIC PANEL (14) BUN 3 mg/dL 6-20 below low normal Not Available [facility] ([facility]) [address] [place], [address], 01/25/2024 07:13:39 01/23/20 24 01/24/2024 COMP. METAB OLIC PANEL (14) creatinine 0.54 mg/dL 0.57-1 .00 below low normal Not Available [facility] ([facility]) [address] [facility], [place], [address], 01/25/2024 07:13:39 01/23/2001/24/2024 COMP. METAB OLIC PANEL (14) eGFR 125 mL/mi n/1.7 3 >59 Not Available [facility] ([facility]) [address] [facility], [place], [address], 01/25/2024 07:13:39 01/23/2001/24/2024 COMP. METAB OLIC PANEL (14) BUN/creatini ne ratio 6 9-23 below low normal Not Available [facility] ([facility]) [address] [facility], [place], [address], 01/25/2024 07:13:39 01/23/2001/24/2024 COMP. METAB OLIC PANEL (14) sodium 135 mmol/ L 134-14 4 Not Available [facility] ([facility]) [address] [facility], [place], [address], 01/25/2024 07:13:39 01/23/2001/24/2024 COMP. METAB OLIC PANEL (14) potassium 4.1 mmol/ L 3.5-5. 2 Not Available [facility] ([facility]) [address] [place], [address], 01/25/2024 07:13:39 01/23/2001/24/2024 COMP. METAB OLIC PANEL (14) chloride 104 mmol/ L 96-106 Not Available [facility] ([facility]) [address] [facility], [place], [address], 01/25/2024 07:13:39 01/23/2001/24/2024 COMP. METAB OLIC PANEL (14) carbon dioxide, total 20 mmol/ L 20-29 Not Available [facility] ([facility]) [address] [facility] [place], [address], 01/25/2024 07:13:39 01/23/2001/24/2024 COMP. METAB OLIC PANEL (14) calcium 8.5 mg/dL 8.7-10 .2 below low normal Not Available [facility] ([facility]) [address] [facility] [place], [address], 01/25/2024 07:13:39 01/23/2001/24/2024 COMP. METAB OLIC PANEL (14) protein, total 6.2 g/dL 6.0-8. 5 Not Available [facility] ([facility]) [address] [facility] [place], [address], 01/25/2024 07:13:39 01/23/2001/24/2024 COMP. METAB OLIC PANEL (14) albumin 3.0 g/dL 3.9-4. 9 below low normal Not Available [facility] ([facility]) [address] [facility] [place], [address], 01/25/2024 07:13:39 01/23/2001/24/2024 COMP. METAB OLIC PANEL (14) globulin, total 3.2 g/dL 1.5-4. 5 Not Available [facility] ([facility]) [address] [facility] [place], [address], 01/25/2024 07:13:39 01/23/2001/24/2024 COMP. METAB OLIC PANEL (14) bilirubin, total 0.6 mg/dL 0.0-1. 2 Not Available [facility] ([facility]) [address] [facility] [place], [address], 01/25/2024 07:13:39 01/23/2001/24/2024 COMP. METAB OLIC PANEL (14) alkaline phosphatase 106 IU/L 44-121 Not Available [facility] ([facility]) [address] [facility], [place], [address], 01/25/2024 07:13:39 01/23/2001/24/2024 COMP. METAB OLIC PANEL (14) AST (SGOT) 14 IU/L 0-40 Not Available [facility] ([facility]) [address] [facility], [place], [address], 01/25/2024 07:13:39 01/23/2001/24/2024 COMP. METAB OLIC PANEL (14) ALT (SGPT) 7 IU/L 0-32 Not Available [facility] ([facility]) [address] [facility], [place], [address], 01/25/2024 07:13:39 01/23/2001/24/2024 MICRO SCOPI C EXAMI NATIO N WBC 11-30 /hpf 0-5 abnormal Not Available [facility] ([facility]) [address] [facility], [place], [address], 01/25/2024 07:13:40 01/23/2001/24/2024 MICRO SCOPI C EXAMI NATIO N RBC None seen /hpf 0-2 Not Available [facility] ([facility]) [address] [facility], [place], [address], 01/25/2024 07:13:40 01/23/2001/24/2024 MICRO SCOPI C EXAMI NATIO N epithelial cells (non renal) >10 /hpf 0-10 abnormal Not Available [facility] ([facility]) [address] [facility], [place], [address], 01/25/2024 07:13:40 01/23/2001/24/2024 MICRO SCOPI C EXAMI NATIO N casts None seen /lpf nonese en Not Available [facility] ([facility]) [address] [facility], [place], [address], 01/25/2024 07:13:40 01/23/2001/24/2024 MICRO SCOPI C EXAMI NATIO N crystals Presen t n/a abnormal Not Available [facility] ([facility]) [address] [facility], [place], [address], 01/25/2024 07:13:40 01/23/2001/24/2024 MICRO SCOPI C EXAMI NATIO N crystal type Calciu m Oxalat e Not Available [facility] ([facility]) [address] [facility], [place], [address], 01/25/2024 07:13:40 01/23/2001/24/2024 MICRO SCOPI C EXAMI NATIO N mucus threads Presen t notest ab. Not Available [facility] ([facility]) [address] [facility], [place], [address], 01/25/2024 07:13:40 01/23/2001/24/2024 MICRO SCOPI C EXAMI NATIO N bacteria Modera te nonese en/few abnormal Not Available [facility] ([facility]) [address] [facility], [place], [address], 01/25/2024 07:13:40 01/23/2001/24/2024 UA/M W/RFL X CULTU RE, ROUTI NE specific gravity 1.012 1.005- 1.030 Not Available [facility] ([facility]) [address] [facility], [place], [address], 01/25/2024 07:13:41 01/23/2001/24/2024 UA/M W/RFL X CULTU RE, ROUTI NE pH 6.5 5.0-7. 5 Not Available [facility] ([facility]) [address] [place], [address], 01/25/2024 07:13:41 01/23/2001/24/2024 UA/M W/RFL X CULTU RE, ROUTI NE urine-color YELLOW yellow Not Available [facility] ([facility]) [address] [place], [address], 01/25/2024 07:13:41 01/23/2001/24/2024 UA/M W/RFL X CULTU RE, ROUTI NE appearance CLOUDY clear abnormal Not Available [facility] ([facility]) [address] [place], [address], 01/25/2024 07:13:41 01/23/2001/24/2024 UA/M W/RFL X CULTU RE, ROUTI NE WBC esterase 3+ negati ve abnormal Not Available [facility] ([facility]) [address] [place], [address], 01/25/2024 07:13:41 01/23/2001/24/2024 UA/M W/RFL X CULTU RE, ROUTI NE protein NEGATI VE negati ve/tra ce Not Available [facility] ([facility]) [address] [place], [address], 01/25/2024 07:13:41 01/23/2001/24/2024 UA/M W/RFL X CULTU RE, ROUTI NE glucose NEGATI VE negati ve Not Available [facility] ([facility]) [address] [place], [address], 01/25/2024 07:13:41 01/23/2001/24/2024 UA/M W/RFL X CULTU RE, ROUTI NE ketones NEGATI VE negati ve Not Available [facility] ([facility]) [address] [place], [address], 01/25/2024 07:13:41 01/23/2001/24/2024 UA/M W/RFL X CULTU RE, ROUTI NE occult blood NEGATI VE negati ve Not Available [facility] ([facility]) [address] [facility], [place], [address], 01/25/2024 07:13:41 01/23/2001/24/2024 UA/M W/RFL X CULTU RE, ROUTI NE bilirubin NEGATI VE negati ve Not Available [facility] ([facility]) [address] [facility], [place], [address], 01/25/2024 07:13:41 01/23/2001/24/2024 UA/M W/RFL X CULTU RE, ROUTI NE urobilinogen ,semi-qn 1.0 mg/dL 0.2-1. 0 Not Available [facility] ([facility]) [address] [facility], [place], [address], 01/25/2024 07:13:41 01/23/2001/24/2024 UA/M W/RFL X CULTU RE, ROUTI NE nitrite, urine NEGATI VE negati ve Not Available [facility] ([facility]) [address] [facility], [place], [address], 01/25/2024 07:13:41 01/23/2001/24/2024 UA/M W/RFL X CULTU RE, ROUTI NE microscopic examination SEE BELOW: Micro scopi c was indic ated and was perfo rmed. Not Available [facility] ([facility]) [address] [facility], [place], [address], 01/25/2024 07:13:41 01/23/2001/24/2024 UA/M W/RFL X CULTU RE, ROUTI NE urinalysis reflex COMMEN T This speci men has refle xed to a Urine Cultu re. Not Available [facility] ([facility]) [address] [place], [address], 01/25/2024 07:13:41 01/23/2001/24/2024 PROTE IN/CR EATIN INE URINE ACOG creatinine, urine 107.6 mg/dL notest ab. Not Available [facility] ([facility]) [address] [facility], [place], [address], 01/25/2024 07:13:42 01/23/2001/24/2024 PROTE IN/CR EATIN INE URINE ACOG protein,tota l,urine 18.8 mg/dL notest ab. Not Available [facility] ([facility]) [address] [facility], [place], [address], 01/25/2024 07:13:42 01/23/2001/24/2024 PROTE IN/CR EATIN INE URINE ACOG protein/crea tinine 0.17 mg/mg _crea t 0.00-0 .20 Ref: Hyper tensi on in Pregn harvinder, ACOG, 2013 Not Available [facility] ([facility]) [address] [facility], [place], [address], 01/25/2024 07:13:42 01/23/2001/24/2024 URIC ACID uric acid 4.3 mg/dL 2.6-6. 2 Thera disha vines t for gout patie nts: <6.0 Not Available [facility] ([facility]) [address] [place], [address], 01/25/2024 07:13:43 01/23/2001/24/2024 LDH LDH 188 IU/L 119-22 6 Not Available [facility] ([facility]) [address] [place], [address], 01/25/2024 07:13:45 01/23/2001/24/2024 CBC WITH DIFFE RENTI AL/PL ATELE T WBC 9.0 x10e3 /uL 3.4-10 .8 Not Available [facility] ([facility]) [address] [place], [address], 01/25/2024 07:13:46 01/23/2001/24/2024 CBC WITH DIFFE RENTI AL/PL ATELE T RBC 3.48 x10e6 /uL 3.77-5 .28 below low normal Not Available [facility] ([facility]) [address] [place], [address], 01/25/2024 07:13:46 01/23/2001/24/2024 CBC WITH DIFFE RENTI AL/PL ATELE T hemoglobin 9.9 g/dL 11.1-1 5.9 below low normal Not Available [facility] ([facility]) [address] [place], [address], 01/25/2024 07:13:46 01/23/2001/24/2024 CBC WITH DIFFE RENTI AL/PL ATELE T hematocrit 30.1 % 34.0-4 6.6 below low normal Not Available [facility] ([facility]) [address] [place], [address], 01/25/2024 07:13:46 01/23/2001/24/2024 CBC WITH DIFFE RENTI AL/PL ATELE T MCV 87 fL 79-97 Not Available [facility] ([facility]) [address] [place], [address], 01/25/2024 07:13:46 01/23/2001/24/2024 CBC WITH DIFFE RENTI AL/PL ATELE T MCH 28.4 pg 26.6-3 3.0 Not Available [facility] ([facility]) [address] [place], [address], 01/25/2024 07:13:46 01/23/2001/24/2024 CBC WITH DIFFE RENTI AL/PL ATELE T MCHC 32.9 g/dL 31.5-3 5.7 Not Available [facility] ([facility]) [address] [place], [address], 01/25/2024 07:13:46 01/23/2001/24/2024 CBC WITH DIFFE RENTI AL/PL ATELE T RDW 15.3 % 11.7-1 5.4 Not Available [facility] ([facility]) [address] [facility], [place], [address], 01/25/2024 07:13:46 01/23/2001/24/2024 CBC WITH DIFFE RENTI AL/PL ATELE T platelets 135 x10e3 /uL 150-45 0 below low normal Not Available [facility] ([facility]) [address] [facility], [place], [address], 01/25/2024 07:13:46 01/23/2001/24/2024 CBC WITH DIFFE RENTI AL/PL ATELE T neutrophils 69 % notest ab. Not Available [facility] ([facility]) [address] [facility], [place], [place], [id number], 01/25/2024 07:13:46 01/23/2001/24/2024 CBC WITH DIFFE RENTI AL/PL ATELE T lymphs 21 % notest ab. Not Available [facility] ([facility]) [address] [facility], [place], [address], 01/25/2024 07:13:46 01/23/2001/24/2024 CBC WITH DIFFE RENTI AL/PL ATELE T monocytes 7 % notest ab. Not Available [facility] ([facility]) [address] [facility], [place], [address], 01/25/2024 07:13:46 01/23/2001/24/2024 CBC WITH DIFFE RENTI AL/PL ATELE T eos 2 % notest ab. Not Available [facility] ([facility]) [address] [facility], [place], [address], 01/25/2024 07:13:46 01/23/2001/24/2024 CBC WITH DIFFE RENTI AL/PL ATELE T basos 0 % notest ab. Not Available [facility] ([facility]) [address] [place], [address], 01/25/2024 07:13:46 01/23/2001/24/2024 CBC WITH DIFFE RENTI AL/PL ATELE T neutrophils (absolute) 6.2 x10e3 /uL 1.4-7. 0 Not Available [facility] ([facility]) [address] [place], [address], 01/25/2024 07:13:46 01/23/2001/24/2024 CBC WITH DIFFE RENTI AL/PL ATELE T lymphs (absolute) 1.9 x10e3 /uL 0.7-3. 1 Not Available [facility] ([facility]) [address] [place], [address], 01/25/2024 07:13:46 01/23/2001/24/2024 CBC WITH DIFFE RENTI AL/PL ATELE T monocytes(ab solute) 0.6 x10e3 /uL 0.1-0. 9 Not Available [facility] ([facility]) [address] [place], [address], 01/25/2024 07:13:46 01/23/2001/24/2024 CBC WITH DIFFE RENTI AL/PL ATELE T eos (absolute) 0.2 x10e3 /uL 0.0-0. 4 Not Available [facility] ([facility]) [address] [place], [address], 01/25/2024 07:13:46 01/23/2001/24/2024 CBC WITH DIFFE RENTI AL/PL ATELE T baso (absolute) 0.0 x10e3 /uL 0.0-0. 2 Not Available [facility] ([facility]) [address] [place], [address], 01/25/2024 07:13:46 01/23/2001/24/2024 CBC WITH DIFFE RENTI AL/PL ATELE T immature granulocytes 1 % notest ab. Not Available [facility] ([facility]) [address] [facility], [place], [address], 01/25/2024 07:13:46 01/23/2001/24/2024 CBC WITH DIFFE RENTI AL/PL ATELE T immature grans (abs) 0.1 x10e3 /uL 0.0-0. 1 Not Available [facility] ([facility]) [address] [place], [address], 01/25/2024 07:13:46 01/23/2001/25/2024 URINE CULTU RE, AMBROSEI NE urine culture, routine Final report Not Available [facility] ([facility]) [address] [facility], [place], [address], 01/25/2024 07:13:47 01/23/2001/25/2024 URINE CULTU RE, MICA NE result 1 Commen t Mixed uroge nital shiva 25,00 0-50, 000 colon y formi ng units per mL Not Available [facility] ([facility]) [address] [facility], [place], [address], 01/25/2024 07:13:47 01/23/2001/24/2024 RPR, RFX QN RPR/C ONFIR M TP RPR NON REACTI VE nonrea ctive Not Available [facility] ([facility]) [address] [facility], [place], [address], 01/25/2024 07:13:48 01/23/2001/24/2024 HIV AB/P2 4 AG WITH REFLE X HIV Ab/P24 Ag screen NON REACTI VE nonrea ctive HIV-1 /HIV- 2 antib odies and HIV-1 p24 antig en were NOT detec kalyani. There is no labor atory evide nce of HIV infec tion. HIV Negat opal Not Available [facility] ([facility]) [address] [place], [address], 01/25/2024 07:13:49 01/23/2001/29/2024 STREP GP B SUSCE PTIBI LITY organism identificati on Commen t Beta hemol ytic Strep tococ cus, group B Not Available [facility] ([facility]) [address] [facility], [place], [address], 01/29/2024 14:08:18 01/23/2001/29/2024 STREP GP B SUSCE PTIBI LITY clindamycin Resist ant abnormal Testi ng for induc ible clind amyci n resis tance was perfo rmed using eryth romyc in and clind amyci n in the D-zon e test. Per the Cente rs for Disea se Contr ol and Preve ntion (CDC) , eryth romyc in is no longe r an accep table alter nativ e for intra partu m group B Strep tococ cus (GBS) proph ylaxi s for penic illin -colton rgic women at high risk for anaph ylaxi s. Not Available [facility] ([facility]) [address] [place], [address], 01/29/2024 14:08:18 01/23/2001/28/2024 STREP GP B CULTU RE+RF LX strep gp B culture+rflx POSITI VE negati ve abnormal Cente rs for Disea se Contr ol and Preve ntion (CDC) and Ameri can Congr ess of Obste trici ans and Gynec ologi sts (ACOG ) guide lines for preve ntion of perin atal group B strep tococ inder (GBS) disea se speci fy co-co llect ion of a vagin al and recta l swab speci men to maxim ize sensi tivit y of GBS detec tion. Per the CDC and ACOG, swabb ing both the lower vagin a and rectu m subst antia lly incre ases the yield of detec tion tiffanie red with sampl ing the vagin a alone . Penic illin G, ampic illin , or cefaz mellissa are indic ated for intra partu m proph ylaxi s of perin atal GBS colon izati on. Refle x susce ptibi lity testi ng shoul d be perfo rmed prior to use of clind amyci n only on GBS isola domonique from penic illin -colton rgic women who are consi dered a high risk for anaph ylaxi s. Treat ment with vanco mycin witho ut addit ional testi ng is warra nted if resis tance to clind amyci n is noted . Not Available [facility] ([facility]) [address] [facility], [place], [address], 01/29/2024 14:08:19 01/23/2001/23/2024 urina lysis , dipst ick Leukocytes Large Not Available In-Offi ce Order Internal Use Only DO Not Attach Compendium DO Not Attach Compendium, Do Not Delete/merge, 01/23/2024 11:28:15 01/23/20 24 01/23/2024 urina lysis , dipst ick Nitrite negati ve Not Available In-Office Order Internal Use Only DO Not Attach Compendium DO Not Attach Compendium, Do Not Delete/merge, [id number] 01/23/2024 11:28:15 01/23/20 24 01/23/2024 urina lysis , dipst ick Urobilinogen 1 Not Available In-Of fice Order Internal Use Only DO Not Attach Compendium DO Not Attach Compendium, Do Not Delete/merge, [id number] 01/23/2024 11:28:15 01/23/20 24 01/23/2024 urina lysis , dipst ick Protein Negati ve Not Available In-Office Order Internal Use Only DO Not Attach Compendium DO Not Attach Compendium, Do Not Delete/merge, [id number] 01/23/2024 11:28:15 01/23/20 24 01/23/2024 urina lysis , dipst ick pH 6.5 Not Available In-Office Order Internal Use Only DO Not Attach Compendium DO Not Attach Compendium, Do Not Delete/merge, 01/23/2024 11:28:15 01/23/2001/23/2024 urina lysis , dipst ick Blood Negati ve Not Available In-Office Order Internal Use Only DO Not Attach Compendium DO Not Attach Compendium, Do Not Delete/merge, 01/23/2024 11:28:15 01/23/2001/23/2024 urina lysis , dipst ick Specific [place] 1.015 Not Available In-Off ice Order Internal Use Only DO Not Attach Compendium DO Not Attach Compendium, Do Not Delete/merge, 01/23/2024 11:28:15 01/23/2001/23/2024 urina lysis , dipst ick Ketone Negati ve Not Available In-Office Order Internal Use Only DO Not Attach Compendium DO Not Attach Compendium, Do Not Delete/merge, 01/23/2024 11:28:15 01/23/2001/23/2024 urina lysis , dipst ick Bilirubin Negati ve Not Available In-Office Order Internal Use Only DO Not Attach Compendium DO Not Attach Compendium, Do Not Delete/merge, 01/23/2024 11:28:15 01/23/2001/23/2024 urina lysis , dipst ick Glucose Negati ve Not Available In-Office Order Internal Use Only DO Not Attach Compendium DO Not Attach Compendium, Do Not Delete/merge, 01/23/2024 11:28:15 01/30/20 24 01/30/2024 urina lysis , dipst ick Leukocytes Small Not Available In-Offi ce Order Internal Use Only DO Not Attach Compendium DO Not Attach Compendium, Do Not Delete/merge, 01/30/2024 11:02:20 01/30/2001/30/2024 urina lysis , dipst ick Nitrite negati ve Not Available In-Office Order Internal Use Only DO Not Attach Compendium DO Not Attach Compendium, Do Not Delete/merge, 01/30/2024 11:02:20 01/30/20 24 01/30/2024 urina lysis , dipst ick Urobilinogen 1 Not Available In-Of fice Order Internal Use Only DO Not Attach Compendium DO Not Attach Compendium, Do Not Delete/merge, [id number] 01/30/2024 11:02:20 01/30/20 24 01/30/2024 urina lysis , dipst ick Protein Negati ve Not Available In-Office Order Internal Use Only DO Not Attach Compendium DO Not Attach Compendium, Do Not Delete/merge, [id number] 01/30/2024 11:02:20 01/30/20 24 01/30/2024 urina lysis , dipst ick pH 6.5 Not Available In-Office Order Internal Use Only DO Not Attach Compendium DO Not Attach Compendium, Do Not Delete/merge, [id number] 01/30/2024 11:02:20 01/30/20 24 01/30/2024 urina lysis , dipst ick Blood Negati ve Not Available In-Office Order Internal Use Only DO Not Attach Compendium DO Not Attach Compendium, Do Not Delete/merge, [id number] 01/30/2024 11:02:20 01/30/20 24 01/30/2024 urina lysis , dipst ick Specific [place] 1.020 Not Available In-Off ice Order Internal Use Only DO Not Attach Compendium DO Not Attach Compendium, Do Not Delete/merge, [id number] 01/30/2024 11:02:20 01/30/20 24 01/30/2024 urina lysis , dipst ick Ketone Negati ve Not Available In-Office Order Internal Use Only DO Not Attach Compendium DO Not Attach Compendium, Do Not Delete/merge, [id number] 01/30/2024 11:02:20 01/30/20 24 01/30/2024 urina lysis , dipst ick Bilirubin Negati ve Not Available In-Office Order Internal Use Only DO Not Attach Compendium DO Not Attach Compendium, Do Not Delete/merge, [id number] 01/30/2024 11:02:20 01/30/20 24 01/30/2024 urina lysis , dipst ick Glucose Negati ve Not Available In-Office Order Internal Use Only DO Not Attach Compendium DO Not Attach Compendium, Do Not Delete/merge, 01/30/2024 11:02:20 02/06/2002/06/2024 urina lysis , dipst ick Leukocytes Large Not Available In-Offi ce Order Internal Use Only DO Not Attach Compendium DO Not Attach Compendium, Do Not Delete/merge, 02/06/2024 12:36:18 02/06/20 24 02/06/2024 urina lysis , dipst ick Nitrite negati ve Not Available In-Office Order Internal Use Only DO Not Attach Compendium DO Not Attach Compendium, Do Not Delete/merge, 02/06/2024 12:36:18 02/06/20 24 02/06/2024 urina lysis , dipst ick Urobilinogen 2 Not Available In-Of fice Order Internal Use Only DO Not Attach Compendium DO Not Attach Compendium, Do Not Delete/merge, 02/06/2024 12:36:18 02/06/20 24 02/06/2024 urina lysis , dipst ick Protein Negati ve Not Available In-Office Order Internal Use Only DO Not Attach Compendium DO Not Attach Compendium, Do Not Delete/merge, 02/06/2024 12:36:18 02/06/20 24 02/06/2024 urina lysis , dipst ick pH 6.5 Not Available In-Office Order Internal Use Only DO Not Attach Compendium DO Not Attach Compendium, Do Not Delete/merge, 02/06/2024 12:36:18 02/06/20 24 02/06/2024 urina lysis , dipst ick Blood Non-He molyze d: Trace Not Available In-Office Order Internal Use Only DO Not Attach Compendium DO Not Attach Compendium, Do Not Delete/merge, 02/06/2024 12:36:18 02/06/20 24 02/06/2024 urina lysis , dipst ick Specific [place] 1.020 Not Available In-Off ice Order Internal Use Only DO Not Attach Compendium DO Not Attach Compendium, Do Not Delete/merge, 02/06/2024 12:36:18 02/06/20 24 02/06/2024 urina lysis , dipst ick Ketone Negati ve Not Available In-Office Order Internal Use Only DO Not Attach Compendium DO Not Attach Compendium, Do Not Delete/merge, [id number] 02/06/2024 12:36:18 02/06/20 24 02/06/2024 urina lysis , dipst ick Bilirubin Negati ve Not Available In-Office Order Internal Use Only DO Not Attach Compendium DO Not Attach Compendium, Do Not Delete/merge, [id number] 02/06/2024 12:36:18 02/06/20 24 02/06/2024 urina lysis , dipst ick Glucose Negati ve Not Available In-Office Order Internal Use Only DO Not Attach Compendium DO Not Attach Compendium, Do Not Delete/merge, [id number] 02/06/2024 12:36:18 02/13/20 24 02/15/2024 URINE CULTU RE, ROUTI NE urine culture, routine FINAL REPORT Not Available [facility] ([facility]) [address] [facility], [place], [address], 02/15/2024 03:09:17 02/13/20 24 02/15/2024 URINE CULTU RE, ROUTI NE result 1 COMMEN T Cultu re shows less than 10,00 0 colon y formi ng units of bacte erasmo per freya liter of urine . This colon y count is not gener ally consi dered to be clini lillian signi fican t. Not Available [facility] ([facility]) [address] [facility], [place], [address], 02/15/2024 03:09:17 02/13/20 24 02/13/2024 urina lysis , dipst ick Leukocytes Modera te Not Available In-Office Order Internal Use Only DO Not Attach Compendium DO Not Attach Compendium, Do Not Delete/merge, [id number] 02/13/2024 11:34:16 02/13/20 24 02/13/2024 urina lysis , dipst ick Nitrite negati ve Not Available In-Office Order Internal Use Only DO Not Attach Compendium DO Not Attach Compendium, Do Not Delete/merge, 02/13/2024 11:34:16 02/13/20 24 02/13/2024 urina lysis , dipst ick Urobilinogen 2 Not Available In-Of fice Order Internal Use Only DO Not Attach Compendium DO Not Attach Compendium, Do Not Delete/merge, 02/13/2024 11:34:16 02/13/20 24 02/13/2024 urina lysis , dipst ick Protein Negati ve Not Available In-Office Order Internal Use Only DO Not Attach Compendium DO Not Attach Compendium, Do Not Delete/merge, 02/13/2024 11:34:16 02/13/20 24 02/13/2024 urina lysis , dipst ick pH 6.5 Not Available In-Office Order Internal Use Only DO Not Attach Compendium DO Not Attach Compendium, Do Not Delete/merge, 02/13/2024 11:34:16 02/13/20 24 02/13/2024 urina lysis , dipst ick Blood Negati ve Not Available In-Office Order Internal Use Only DO Not Attach Compendium DO Not Attach Compendium, Do Not Delete/merge, 02/13/2024 11:34:16 02/13/20 24 02/13/2024 urina lysis , dipst ick Specific [place] 1.015 Not Available In-Off ice Order Internal Use Only DO Not Attach Compendium DO Not Attach Compendium, Do Not Delete/merge, 02/13/2024 11:34:16 02/13/20 24 02/13/2024 urina lysis , dipst ick Ketone Negati ve Not Available In-Office Order Internal Use Only DO Not Attach Compendium DO Not Attach Compendium, Do Not Delete/merge, 02/13/2024 11:34:16 02/13/20 24 02/13/2024 urina lysis , dipst ick Bilirubin Negati ve Not Available In-Office Order Internal Use Only DO Not Attach Compendium DO Not Attach Compendium, Do Not Delete/merge, 02/13/2024 11:34:16 02/13/20 24 02/13/2024 urina lysis , dipst ick Glucose Negati ve Not Available In-Office Order Internal Use Only DO Not Attach Compendium DO Not Attach Compendium, Do Not Delete/merge, [id number] 02/13/2024 11:34:16 03/19/20 24 03/19/2024 urina lysis , dipst ick Leukocytes Trace Not Available In-Offi ce Order Internal Use Only DO Not Attach Compendium DO Not Attach Compendium, Do Not Delete/merge, [facility] 03/19/2024 10:48:32 03/19/20 24 03/19/2024 urina lysis , dipst ick Nitrite negati ve Not Available In-Office Order Internal Use Only DO Not Attach Compendium DO Not Attach Compendium, Do Not Delete/merge, [facility] 03/19/2024 10:48:32 03/19/20 24 03/19/2024 urina lysis , dipst ick Urobilinogen .2 Not Available In-Of fice Order Internal Use Only DO Not Attach Compendium DO Not Attach Compendium, Do Not Delete/merge, [facility] 03/19/2024 10:48:32 03/19/20 24 03/19/2024 urina lysis , dipst ick Protein Negati ve Not Available In-Office Order Internal Use Only DO Not Attach Compendium DO Not Attach Compendium, Do Not Delete/merge, [facility] 03/19/2024 10:48:32 03/19/20 24 03/19/2024 urina lysis , dipst ick pH 6.0 Not Available In-Office Order Internal Use Only DO Not Attach Compendium DO Not Attach Compendium, Do Not Delete/merge, [facility] 03/19/2024 10:48:32 03/19/20 24 03/19/2024 urina lysis , dipst ick Blood Negati ve Not Available In-Office Order Internal Use Only DO Not Attach Compendium DO Not Attach Compendium, Do Not Delete/merge, [facility] 03/19/2024 10:48:32 03/19/20 24 03/19/2024 urina lysis , dipst ick Specific [place] 1.025 Not Available In-Off ice Order Internal Use Only DO Not Attach Compendium DO Not Attach Compendium, Do Not Delete/merge, [id number] 03/19/2024 10:48:32 03/19/20 24 03/19/2024 urina lysis , dipst ick Ketone Negati ve Not Available In-Office Order Internal Use Only DO Not Attach Compendium DO Not Attach Compendium, Do Not Delete/merge, [id number] 03/19/2024 10:48:32 03/19/20 24 03/19/2024 urina lysis , dipst ick Bilirubin Negati ve Not Available In-Office Order Internal Use Only DO Not Attach Compendium DO Not Attach Compendium, Do Not Delete/merge, [id number] 03/19/2024 10:48:32 03/19/20 24 03/19/2024 urina lysis , dipst ick Glucose Negati ve Not Available In-Office Order Internal Use Only DO Not Attach Compendium DO Not Attach Compendium, Do Not Delete/merge, [id number] 03/19/2024 10:48:32 03/26/20 24 03/27/2024 COMP. METAB OLIC PANEL (14) glucose 91 mg/dL 70-99 Not Available [facility] ([facility]) [address] [place], [address], 03/27/2024 10:37:06 03/26/20 24 03/27/2024 COMP. METAB OLIC PANEL (14) BUN 8 mg/dL 6-20 Not Available [facility] ([facility]) [address] [place], [address], 03/27/2024 10:37:06 03/26/20 24 03/27/2024 COMP. METAB OLIC PANEL (14) creatinine 0.62 mg/dL 0.57-1 .00 Not Available [facility] ([facility]) [address] [place], [address], 03/27/2024 10:37:06 03/26/20 24 03/27/2024 COMP. METAB OLIC PANEL (14) eGFR 121 mL/mi n/1.7 3 >59 Not Available [facility] ([facility]) [address] [facility], [place], [address], 03/27/2024 10:37:06 03/26/20 24 03/27/2024 COMP. METAB OLIC PANEL (14) BUN/creatini ne ratio 13 9-23 Not Available [facility] ([facility]) [address] [facility], [place], [address], 03/27/2024 10:37:06 03/26/20 24 03/27/2024 COMP. METAB OLIC PANEL (14) sodium 135 mmol/ L 134-14 4 Not Available [facility] ([facility]) [address] [facility], [place], [address], 03/27/2024 10:37:06 03/26/20 24 03/27/2024 COMP. METAB OLIC PANEL (14) potassium 4.2 mmol/ L 3.5-5. 2 Not Available [facility] ([facility]) [address] [facility], [place], [address], 03/27/2024 10:37:06 03/26/20 24 03/27/2024 COMP. METAB OLIC PANEL (14) chloride 102 mmol/ L 96-106 Not Available [facility] ([facility]) [address] [facility] [place], [address], 03/27/2024 10:37:06 03/26/20 24 03/27/2024 COMP. METAB OLIC PANEL (14) carbon dioxide, total 21 mmol/ L 20-29 Not Available [facility] ([facility]) [address] [facility] [place], [address], 03/27/2024 10:37:06 03/26/20 24 03/27/2024 COMP. METAB OLIC PANEL (14) calcium 9.0 mg/dL 8.7-10 .2 Not Available [facility] ([facility]) [address] [facility] [place], [address], 03/27/2024 10:37:06 03/26/20 24 03/27/2024 COMP. METAB OLIC PANEL (14) protein, total 7.5 g/dL 6.0-8. 5 Not Available [facility] ([facility]) [address] [place], [address], 03/27/2024 10:37:06 03/26/20 24 03/27/2024 COMP. METAB OLIC PANEL (14) albumin 4.1 g/dL 3.9-4. 9 Not Available [facility] ([facility]) [address] [place], [address], 03/27/2024 10:37:06 03/26/20 24 03/27/2024 COMP. METAB OLIC PANEL (14) globulin, total 3.4 g/dL 1.5-4. 5 Not Available [facility] ([facility]) [address] [place], [address], 03/27/2024 10:37:06 03/26/20 24 03/27/2024 COMP. METAB OLIC PANEL (14) bilirubin, total 0.4 mg/dL 0.0-1. 2 Not Available [facility] ([facility]) [address] [place], [address], 03/27/2024 10:37:06 03/26/20 24 03/27/2024 COMP. METAB OLIC PANEL (14) alkaline phosphatase 85 IU/L 44-121 Not Available [facility] ([facility]) [address], [place], [address], 03/27/2024 10:37:06 03/26/20 24 03/27/2024 COMP. METAB OLIC PANEL (14) AST (SGOT) 17 IU/L 0-40 Not Available [facility] ([facility]) [address] [place], [address], 03/27/2024 10:37:06 03/26/20 24 03/27/2024 COMP. METAB OLIC PANEL (14) ALT (SGPT) 9 IU/L 0-32 Not Available [facility] ([facility]) [address] [facility], [place], [address], 03/27/2024 10:37:06 03/26/20 24 03/27/2024 PROTE IN/CR EATIN INE URINE ACOG creatinine, urine 19.8 mg/dL notest ab. Not Available [facility] ([facility]) [address] [facility], [place], [address], 03/27/2024 10:37:07 03/26/20 24 03/27/2024 PROTE IN/CR EATIN INE URINE ACOG protein,tota l,urine <4.0 mg/dL notest ab. Marianne ified by repea t aniyah sis Not Available [facility] ([facility]) [address] [facility], [place], [address], 03/27/2024 10:37:07 03/26/20 24 03/27/2024 PROTE IN/CR EATIN INE URINE ACOG protein/crea tinine COMMEN T abnormal This resul t is below the assay 's limit of quant itati on indic ating a dilut e speci men, poten tiall y due to diurn al varia tion. Consi staci recol lecti on at a time likel y to provi de a more calli ntrat ed urine . Ref: Hyper tensi on in Pregn harvinder, ACOG, 2013 Not Available [facility] ([facility]) [address] [facility], [place], [address], 03/27/2024 10:37:07 03/26/20 24 03/27/2024 URIC ACID uric acid 5.0 mg/dL 2.6-6. 2 Thera peuti c targe t for gout patie nts: <6.0 Not Available [facility] ([facility]) [address] [facility], [place], [address], 03/27/2024 10:37:09 03/26/20 24 03/27/2024 LD REFLE X LDH 217 IU/L 119-22 6 Not Available [facility] ([facility]) [address] [facility], [place], [address], 03/27/2024 10:37:10 03/26/20 24 03/27/2024 CBC WITH DIFFE RENTI AL/PL ATELE T WBC 9.4 x10e3 /uL 3.4-10 .8 Not Available [facility] ([facility]) [address] [facility], [place], [address], 03/27/2024 10:37:11 03/26/20 24 03/27/2024 CBC WITH DIFFE RENTI AL/PL ATELE T RBC 4.42 x10e6 /uL 3.77-5 .28 Not Available [facility] ([facility]) [address] [facility], [place], [address], 03/27/2024 10:37:11 03/26/20 24 03/27/2024 CBC WITH DIFFE RENTI AL/PL ATELE T hemoglobin 12.1 g/dL 11.1-1 5.9 Not Available [facility] ([facility]) [address] [facility], [place], [address], 03/27/2024 10:37:11 03/26/20 24 03/27/2024 CBC WITH DIFFE RENTI AL/PL ATELE T hematocrit 36.3 % 34.0-4 6.6 Not Available [facility] ([facility]) [address] [place], [address], 03/27/2024 10:37:11 03/26/20 24 03/27/2024 CBC WITH DIFFE RENTI AL/PL ATELE T MCV 82 fL 79-97 Not Available [facility] ([facility]) [address] [place], [address], 03/27/2024 10:37:11 03/26/20 24 03/27/2024 CBC WITH DIFFE RENTI AL/PL ATELE T MCH 27.4 pg 26.6-3 3.0 Not Available [facility] ([facility]) [address] [facility], [place], [address], 03/27/2024 10:37:11 03/26/20 24 03/27/2024 CBC WITH DIFFE RENTI AL/PL ATELE T MCHC 33.3 g/dL 31.5-3 5.7 Not Available [facility] ([facility]) [address] [facility], [place], [address], 03/27/2024 10:37:11 03/26/20 24 03/27/2024 CBC WITH DIFFE RENTI AL/PL ATELE T RDW 16.3 % 11.7-1 5.4 above high normal Not Available [facility] ([facility]) [address] [facility], [place], [address], 03/27/2024 10:37:11 03/26/20 24 03/27/2024 CBC WITH DIFFE RENTI AL/PL ATELE T platelets 224 x10e3 /uL 150-45 0 Not Available [facility] ([facility]) [address] [facility], [place], [address], 03/27/2024 10:37:11 03/26/20 24 03/27/2024 CBC WITH DIFFE RENTI AL/PL ATELE T neutrophils 65 % notest ab. Not Available [facility] ([facility]) [address] [facility], [place], [address], 03/27/2024 10:37:11 03/26/20 24 03/27/2024 CBC WITH DIFFE RENTI AL/PL ATELE T lymphs 25 % notest ab. Not Available [facility] ([facility]) [address] [facility], [place], [address], 03/27/2024 10:37:11 03/26/20 24 03/27/2024 CBC WITH DIFFE RENTI AL/PL ATELE T monocytes 5 % notest ab. Not Available [facility] ([facility]) [address] [facility], [place], [address], 03/27/2024 10:37:11 03/26/20 24 03/27/2024 CBC WITH DIFFE RENTI AL/PL ATELE T eos 5 % notest ab. Not Available [facility] ([facility]) [address] [facility], [place], [address], 03/27/2024 10:37:11 03/26/20 24 03/27/2024 CBC WITH DIFFE RENTI AL/PL ATELE T basos 0 % notest ab. Not Available [facility] ([facility]) [address] [facility], [place], [address], 03/27/2024 10:37:11 03/26/20 24 03/27/2024 CBC WITH DIFFE RENTI AL/PL ATELE T neutrophils (absolute) 6.0 x10e3 /uL 1.4-7. 0 Not Available [facility] ([facility]) [address] [facility], [place], [address], 03/27/2024 10:37:11 03/26/20 24 03/27/2024 CBC WITH DIFFE RENTI AL/PL ATELE T lymphs (absolute) 2.3 x10e3 /uL 0.7-3. 1 Not Available [facility] ([facility]) [address] [facility], [place], [address], 03/27/2024 10:37:11 03/26/20 24 03/27/2024 CBC WITH DIFFE RENTI AL/PL ATELE T monocytes(ab solute) 0.5 x10e3 /uL 0.1-0. 9 Not Available [facility] ([facility]) [address] [facility], [place], [address], 03/27/2024 10:37:11 03/26/20 24 03/27/2024 CBC WITH DIFFE RENTI AL/PL ATELE T eos (absolute) 0.5 x10e3 /uL 0.0-0. 4 above high normal Not Available [facility] ([facility]) [address] [facility], [place], [address], 03/27/2024 10:37:11 03/26/20 24 03/27/2024 CBC WITH DIFFE RENTI AL/PL ATELE T baso (absolute) 0.0 x10e3 /uL 0.0-0. 2 Not Available [facility] ([facility]) [address] [facility], [place], [address], 03/27/2024 10:37:11 03/26/20 24 03/27/2024 CBC WITH DIFFE RENTI AL/PL ATELE T immature granulocytes 0 % notest ab. Not Available [facility] ([facility]) [address] [facility], [place], [address], 03/27/2024 10:37:11 03/26/20 24 03/27/2024 CBC WITH DIFFE RENTI AL/PL ATELE T immature grans (abs) 0.0 x10e3 /uL 0.0-0. 1 Not Available [facility] ([facility]) [address] [facility], [place], [address], 03/27/2024 10:37:11 03/26/20 24 03/26/2024 pregn harvinder test, urine HCG negati ve Not Available In-Office Order Internal Use Only DO Not Attach Compendium DO Not Attach Compendium, Do Not Delete/merge, [id number] 03/26/2024 11:48:46 03/26/20 24 03/26/2024 urina lysis , dipst ick Leukocytes Negati ve Not Available In-Office Order Internal Use Only DO Not Attach Compendium DO Not Attach Compendium, Do Not Delete/merge, [id number] 03/26/2024 11:48:09 03/26/20 24 03/26/2024 urina lysis , dipst ick Nitrite negati ve Not Available In-Office Order Internal Use Only DO Not Attach Compendium DO Not Attach Compendium, Do Not Delete/merge, 03/26/2024 11:48:09 03/26/20 24 03/26/2024 urina lysis , dipst ick Urobilinogen .2 Not Available In-Of fice Order Internal Use Only DO Not Attach Compendium DO Not Attach Compendium, Do Not Delete/merge, [id number] 03/26/2024 11:48:09 03/26/20 24 03/26/2024 urina lysis , dipst ick Protein Negati ve Not Available In-Office Order Internal Use Only DO Not Attach Compendium DO Not Attach Compendium, Do Not Delete/merge, 03/26/2024 11:48:09 03/26/20 24 03/26/2024 urina lysis , dipst ick pH 7.0 Not Available In-Office Order Internal Use Only DO Not Attach Compendium DO Not Attach Compendium, Do Not Delete/merge, [id number] 03/26/2024 11:48:09 03/26/20 24 03/26/2024 urina lysis , dipst ick Blood Negati ve Not Available In-Office Order Internal Use Only DO Not Attach Compendium DO Not Attach Compendium, Do Not Delete/merge, [id number] 03/26/2024 11:48:09 03/26/20 24 03/26/2024 urina lysis , dipst ick Specific [place] 1.015 Not Available In-Off ice Order Internal Use Only DO Not Attach Compendium DO Not Attach Compendium, Do Not Delete/merge, [id number] 03/26/2024 11:48:09 03/26/20 24 03/26/2024 urina lysis , dipst ick Ketone Negati ve Not Available In-Office Order Internal Use Only DO Not Attach Compendium DO Not Attach Compendium, Do Not Delete/merge, 03/26/2024 11:48:09 03/26/20 24 03/26/2024 urina lysis , dipst ick Bilirubin Negati ve Not Available In-Office Order Internal Use Only DO Not Attach Compendium DO Not Attach Compendium, Do Not Delete/merge, [id number] 03/26/2024 11:48:09 03/26/20 24 03/26/2024 urina lysis , dipst ick Glucose Negati ve Not Available In-Office Order Internal Use Only DO Not Attach Compendium DO Not Attach Compendium, Do Not Delete/merge, [id number] 03/26/2024 11:48:09 05/07/19 25 05/09/2024 NUSWA B VAGIN ITIS PLUS (VG+) atopobium vaginae HIGH - 2 score abnormal Not Available [facility] ([facility]) [address] [facility], [place], [address], 05/09/2024 08:25:53 05/07/1905/09/2024 NUSWA B VAGIN ITIS PLUS (VG+) bvab 2 HIGH - 2 score abnormal Not Available [facility] ([facility]) [address] [facility], [place], [address], 05/09/2024 08:25:53 05/07/19 25 05/09/2024 NUSWA B VAGIN ITIS PLUS (VG+) megasphaera 1 HIGH - 2 score abnormal Calcu late total score by monique marquis the 3 indiv idual bacte rial vagin osis (BV) marke r score s toget her. Total score is inter prete d as follo ws: Total score 0-1: Indic ates the absen ce of BV. Total score 2: Indet ermin ate for BV. Addit ional clini inder data shoul d be evalu ated to estab vern a diagn osis. Total score 3-6: Indic ates the prese nce of BV. Not Available [facility] ([facility]) [address] [facility], [place], [address], 05/09/2024 08:25:53 05/07/19 25 05/09/2024 NUSWA B VAGIN ITIS PLUS (VG+) jorge albicans, REJI NEGATI VE negati ve Not Available [facility] ([facility]) [address] [place], [address], 05/09/2024 08:25:53 05/07/19 25 05/09/2024 NUA B VAGIN ITIS PLUS (VG+) jorge glabrata, REJI NEGATI VE negati ve Not Available [facility] ([facility]) [address] [facility], [place], [address], 05/09/2024 08:25:53 05/07/1905/09/2024 NUA B VAGIN ITIS PLUS (VG+) trich vag by REJI NEGATI VE negati ve Not Available [facility] ([facility]) [address] [facility], [place], [address], 05/09/2024 08:25:53 05/07/1905/09/2024 NUA B VAGIN ITIS PLUS (VG+) chlamydia trachomatis, REJI NEGATI VE negati ve Not Available [facility] ([facility]) [address] [facility], [place], [address], 05/09/2024 08:25:53 05/07/1905/09/2024 NUA B VAGIN ITIS PLUS (VG+) neisseria gonorrhoeae, REJI NEGATI VE negati ve Not Available [facility] ([facility]) [address] [facility], [place], [address], 05/09/2024 08:25:53 08/28/1908/29/2024 NUA B VAGIN ITIS PLUS (VG+) atopobium vaginae HIGH - 2 score abnormal Not Available [facility] ([facility]) [address] [facility], [place], [address], 08/30/2024 07:13:31 08/28/19 25 08/29/2024 NUA B VAGIN ITIS PLUS (VG+) bvab 2 LOW - 0 score Not Available [facility] ([facility]) [address] [place], [address], 08/30/2024 07:13:31 08/28/19 25 08/29/2024 NUSWA B VAGIN ITIS PLUS (VG+) megasphaera 1 HIGH - 2 score abnormal Calcu late total score by monique marquis the 3 indiv idual bacte rial vagin osis (BV) marke r score s toget her. Total score is inter prete d as follo ws: Total score 0-1: Indic ates the absen ce of BV. Total score 2: Indet ermin ate for BV. Addit ional clini inder data shoul d be evalu ated to estab vern a diagn osis. Total score 3-6: Indic ates the prese nce of BV. Not Available [facility] ([facility]) [address] [place], [address], 08/30/2024 07:13:31 08/28/19 25 08/29/2024 NUSWA B VAGIN ITIS PLUS (VG+) jorge albicans, REJI NEGATI VE negati ve Not Available [facility] ([facility]) [address] [place], [address], 08/30/2024 07:13:31 08/28/19 25 08/29/2024 NUSWA B VAGIN ITIS PLUS (VG+) jorge glabrata, REJI NEGATI VE negati ve Not Available [facility] ([facility]) [address] [place], [address], 08/30/2024 07:13:31 08/28/19 25 08/30/2024 NUSWA B VAGIN ITIS PLUS (VG+) trich vag by REJI NEGATI VE negati ve Not Available [facility] ([facility]) [address] [place], [address], 08/30/2024 07:13:31 08/28/19 25 08/30/2024 NUSWA B VAGIN ITIS PLUS (VG+) chlamydia trachomatis, REJI NEGATI VE negati ve Not Available [facility] ([facility]) [address] [place], [address], 08/30/2024 07:13:31 08/28/19 25 08/30/2024 NUSWA B VAGIN ITIS PLUS (VG+) neisseria gonorrhoeae, REJI NEGATI VE negati ve Not Available [facility] ([facility]) [address] [facility], [place], [address], 08/30/2024 07:13:31 01/23/20 24 01/23/2024 US, obste tric, mater nal evalu ation + anato my No observ ation record ed. [place] [address], [place], [address], 01/26/2024 16:17:38 02/03/20 24 02/03/2024 non-s tress test No observ ation record ed. [facility] [address] [place] [address], [address], 02/07/2024 17:34:11 02/03/20 24 02/03/2024 non-s tress test No observ ation record ed. [facility] [address] [place] [address], [address], 02/07/2024 14:58:12 Result Notes None recorded. Problems Name Problem SNOMED Code Status Onset Date Resolution Date Notes Provider Name and Address Organization Details Recorded Time Bacteria l vaginosi s 769634222 Completed 10/27/2023 ZAY MACKEY MD Attn: Dev marquis,[address] [facility], [place], [address], [facility] - [facility] 4 23:13:57 Pregnanc y 52457598 Completed 201610/13/2016 Nancy Alarcon [place] null, [place] [facility] 4 10:39:53 Group B Streptoc occus carrier [id number] 03 Completed 201710/27/2023 ZAY MACKEY MD Attn: Dev marquis[address] [facility], [place], [address], [place] - [facility] 4 23:09:38 Pregnanc y 29076123 Completed 201706/28/2018 Nancy Alarcon [place], [place] [facility] 4 10:39:53 Hollykiana cespedes 935441707 Completed 201710/27/2023 ZAY MACKEY MD Attn: Dev marquis,[address] [facility], [place], [address], [place] [facility] 4 23:09:48 Margareth cespedes 384385867 Completed 2017 Devin Mosqueda null, [place] [facility] 9 16:53:44 Follicul itis 73781567 Completed 201810/27/2023 ZAY MACKEY MD Attn: Dev kandis,[address] [facility], [place], [address], [place] [facility] 4 23:09:54 Menorrha kristopher [id number] Completed 201810/27/2023 ZAY MACKEY MD Attn: Dev kandis,[address] [facility], [place], [address], [place] [facility] 4 23:10:15 Chronic idiopath ic constipa tion 90640019 Completed 202010/27/2023 ZAY MACKEY MD Attn: Dev kandis,[address] [facility], [place], [address], [place] [facility] 4 23:14:06 Obesity 711822009 Active 2020 Devin Mosqueda [place] [facility] 1 16:50:36 Pregnanc y 71524936 Completed 202303/19/2024 Nancy Alarcon [place] [facility] 4 10:39:53 Past pregnanc y history of gestatio nal hyperten krishna 063924732 Active 2023 Brittany Alejandra, RN [place] [facility] 5 11:27:53 Past pregnanc y history of gestatio nal hyperten krishna 708861594 Completed 2023 Brittany Alejandra, [place] [facility] 5 11:27:53 Herpes simplex 00380770 Completed 2023 On prophyla ctic valacycl ovir Brittany Alejandra, [place] [facility] 5 11:27:53 Herpes simplex 49839259 Active 2023 On prophyla ctic valacycl ovir Brittany Alejandra, [place] [facility] 5 11:27:53 Anemia of pregnanc y 97406651 Completed 2023 Most recent CBC shows Hgb of 9.9 and Hct of 29.6. Patient is currentl y [facility] to continue to take them. Repeat CBC 01/22 Hb 9.9 Brittany Alejandra, RN [place], [place] [facility] 5 11:27:53 Anemia of pregnanc y 37826792 Active 2023 Most recent CBC shows Hgb of 9.9 and Hct of 29.6. Patient is currentl y [facility] iron supp[facility] to continue to take them. Repeat CBC 01/22 Hb 9.9 Brittany Alejandra, [place], [place] [facility] 5 11:27:53 Constipa tion 61290773 Completed 2023 Brittanymonae Alejandra, [place] [facility] 5 11:27:53 Constipa tion 62547563 Active 2023 Brittanymonae Alejandra, [place] [facility] 5 11:27:53 Cyst of left ovary 66099954997 601184 Completed 2023 2.6 cm Cyst of left ovary on US on 4 Brittanymonae Alejandra, [place] [facility] 5 11:27:53 Cyst of left ovary 25169989899 353264 Active 2023 2.6 cm Cyst of left ovary on US on 4 Brittany Alejandra, [place] [facility] 5 11:27:53 Vaginal discharg e 746268480 Completed 2023 Brittany Sinks, [place] [facility] 5 11:27:53 Vaginal discharg e 914311313 Active 2023 Brittany Sinks, [place] [facility] 5 11:27:53 Hemorrho ids 46943498 Completed 2023 Brittany Sinks, [place] [facility] 5 11:27:54 Hemorrho ids 75050856 Active 2023 Brittany Sinks, [place] [facility] 5 11:27:54 Routine antenata l care Completed 2023 Brittany Sinks, [place] [facility] 5 11:27:54 Routine antenata l care Active 2023 Brittany Sinks, [place] [facility] 5 11:27:54 Asymptom atic bacteriu erasmo in pregnanc y 47181922 Active 2023 LAWRENCE TERRY DO Attn: Dev marquis,[address] [place], [address], [place] [facility] 4 13:12:47 Maternal obesity complica ting pregnanc y, childbir th and the puerperi , antepart 17051596393 7 Active 2023 Brittany Alejandra, [place] [facility] 5 11:27:53 Maternal obesity complica ting pregnanc y, childbir th and the puerperi um, antepart 29147600719 7 Completed 2023 Brittany Alejandra, [place] [facility] 5 11:27:53 Acute cystitis in pregnanc y, antepart um 56882983352 4 Completed 2023 Macrobid sent on 11/19 Brittany Alejandra, [place] [facility] 5 11:27:54 Acute cystitis in pregnanc y, antepart um 25592469862 4 Active 2023 Macrobid sent on 11/19 BARBIE Toney, [place] [facility] 5 11:27:54 Yellow vaginal discharg e 441047490 Completed 2023 BARBIE [place] [facility] 5 11:27:53 Yellow vaginal discharg e 809999341 Active 2023 BARBIE [place]oney, [place] [facility] 5 11:27:53 Proteinu erasmo 19955053 Completed 2023 Neg PreE labs on 01/23/20 24 BARBIE Toney, [place] - [facility] 5 11:27:53 Group B Streptoc occus carrier [id number] 03 Completed 2023 GBS bacterur ia. Resistan t to clindamy arik. Plan for vancomyc in at delivery . BARBIE Toney, [place] - [facility] 5 11:27:53 Gastroes ophageal reflux disease without esophagi tis 762898138 Completed 2023 BARBIE Toney[place] [facility] 5 11:27:53 Pre-ecla mpsia 705593899 Active 2023 LAWRENCE TERRY DO Attn: Calderonin g,[address] [facility], [place], [address], [place] - [facility] 4 10:53:01 Problem Notes None recorded. Procedures Surgical History Date Name Laterality Status Provider Name and Address Organization Details Recorded Time 4 Control Implant Insertion completed Anupama Yarbrough MD Attn: Accounting,[address] [place], [address], [place] [facility] 03/26/2024 12:19:45 2 Date of Last Pap Smear completed Mago Guerrero [place] [facility] 01/20/2022 10:58:21 1 Control Implant Removal completed Devin Mosqueda [place] - [place] 02/04/2021 16:55:52 9 Control Implant Insertion completed Devin Mosqueda [facility] 06/28/2018 16:40:29 9 Induced d&c completed Tari Martínez MA [facility] 06/28/2018 16:02:33 8 aspiration of ovarian cyst completed Tari Martínez MA [facility] 06/28/2018 16:05:07 6 Control Implant Removal completed Devin Trentman [facility] 09/22/2015 17:05:58 Imaging Results None recorded. Procedure Notes None recorded. Medical Equipment None Reported. Allergies Allergen ID Allergen Name Allergen Category Reaction Reaction Severity Criticality Documentation Date Start Date Code Code System Note Provider Name and Address Organization Details Recorded Time 965036 Product containin g penicilli n (product) medicatio n itching severe Not available 01/08/2020 [id number] 8001 SNOMED Tari Martínez MA null, [facility] 0 13:51:01 Medications Name Sig Start Date Stop Date Status Note LastModified by Organization Details LastModified Time ciprofloxa arik hydrochlor orly 250 mgtabs 01/07 completed Not Available Not Available Not Available metronidaz ole vaginal 0.75 % gel 11/14 completed Not Available Not Available Not Available estarylla 0.25-35 mg-mcg tabs 11/14 completed Not Available Not Available Not Available valacyclov ir hcl 500 mg tabs 11/14 completed Not Available Not Available Not Available nitrofuran toin monohydrat e/macrocry stals 100 mg caps 05/03 completed Not Available Not Available Not Available mononessa 0.25-35 mg-mcg tabs 05/03 completed Not Available Not Available Not Available cephalexin 500 mg caps active Not Available Not Available Not Available metronidaz ole 500 mg tabs 11/14 completed Not Available Not Available Not Available fluconazol e 150 mg tabs 05/03 completed Not Available Not Available Not Available acyclovir 800 mg tabs 11/14 completed Not Available Not Available Not Available naproxen 500 mg tabs active Not Available Not Available Not Available Prescripti on - Prior Authorizat ion Request 08/01 completed Not Available Not Available Not Available linzess 290 mcg caps 05/03 completed Not Available Not Available Not Available se-sonia 19 29-1 mg tabs 11/14 completed Not Available Not Available Not Available phenazopyr idine hcl 200 mg tabs 05/03 completed Not Available Not Available Not Available oxycodone/ acetaminop hen 7.5-325 mgtabs 11/14 completed Not Available Not Available Not Available ibuprofen 600 mg tabs 01/07 completed Not Available Not Available Not Available azithromyc in 250 mg tabs 05/03 completed Not Available Not Available Not Available vol-plus 27-1 mg tabs 11/14 completed Not Available Not Available Not Available penicillin v potassium 500 mg tabs 11/14 completed Not Available Not Available Not Available multivitam in tablet Take 1 tablet every day by oral route. 07/29 completed Not Available Not Available Not Available cyclobenza dean 10 mg tablet 12/28 completed Not Available Not Available Not Available acetaminop hen 325 mg tablet active Not Available Not Available Not Available Vitamin B-6 25 mg tablet TAKE 1 TABLET BY MOUTH DAILY 08/07 completed Not Available Not Available Not Available clindamyci n HCl 300 mg capsule TAKE 1 CAPSULE BY MOUTH THREE TIMES DAILY FOR 10 DAYS 01/15 completed Not Available Not Available Not Available Vitamin C 500 mg tablet Take 1 tablet every 12 hours by oral route. 11/14 completed Not Available Not Available Not Available cetirizine 10 mg tablet TAKE 1 TABLET BY MOUTH EVERY DAY 08/07 completed Not Available Not Available Not Available Lidocaine Viscous 2 % mucosal solution APPLY 5 ML TO AFFECTED AREA IN MOUTH FOUR TIMES DAILY FOR 7 DAYS 12/28 completed Not Available Not Available Not Available fluconazol e 150 mg tablet TAKE 1 TABLET BY MOUTH FOR 1 DOSE 07/29 completed Not Available Not Available Not Available valacyclov ir 1 gram tablet TAKE 1 TABLET BY MOUTH EVERY DAY DIRECTED 08/07 completed Not Available Not Available Not Available Monistat 7 2 % vaginal cream Insert 1 applicat orful every day by vaginal route for 7 days. 06/25 completed Not Available Not Available Not Available Zithromax Z-Alexandre 250 mg tablet TAKE 2 TABLETS (500 MG) BY ORAL ROUTE ONCE DAILY FOR 1 DAY THEN 1 TABLET (250 MG) BY ORAL ROUTE ONCE DAILY FOR 4 DAYS 05/03 completed Not Available Not Available Not Available clindamyci n HCl 150 mg capsule 12/28 completed Not Available Not Available Not Available penicillin V potassium 500 mg tablet Take 1 tablet twice a day by oral route for 7 days. 01/07 completed Not Available Not Available Not Available Miconazole -3 200 mg vaginal suppositor y Insert 1 supposit ory every day by vaginal route for 3 days. 08/01 completed Not Available Not Available Not Available metronidaz ole 500 mg tablet Take 1 tablet twice a day by oral route with meals for 7 days. 09/13 completed Not Available Not Available Not Available ciprofloxa arik 250 mg tablet Take 1 tablet twice a day by oral route for 10 days. 01/07 completed Not Available Not Available Not Available acyclovir 400 mg tablet TAKE 1 TABLET BY MOUTH EVERY 12 HOURS active Not Available Not Available No t Available aspirin 81 mg tablet,del ayed release TAKE 1 TABLET BY MOUTH ONCE DAILY 03/19 completed Not Available Not Available Not Available triamcinol one acetonide 0.1 % topical cream APPLY 1 GRAM TOPICALL Y TO THE AFFECTED AREA TWICE DAILY FOR 7 DAYS 12/28 completed Not Available Not Available Not Available acyclovir 800 mg tablet Take 1 tablet twice a day by oral route for 10 days. 11/14 completed Not Available Not Available Not Available Vitamin tablet Take 1 tablet every day by oral route as directed for 90 days. 06/28 completed Not Available Not Available Not Available hydrocorti sone 2.5 % topical cream with perineal applicator APPLY THIN LAYER TOPICALL Y TO THE AFFECTED AREA 2 TO 4 TIMES DAILY 08/27 completed Not Available Not Available Not Available Metrogel Vaginal 0.75 % (37.5 mg/5 gram) active Not Available Not Available Not Available famotidine 20 mg tablet TAKE 1 TABLET BY MOUTH TWICE DAILY 08/27 completed Not Available Not Available Not Available nifedipine ER 60 mg tablet,ext ended release 24 hr Take 1 tablet every day by oral route for 30 days. 08/27 completed Not Available Not Available Not Available cephalexin 500 mg capsule TAKE 1 CAPSULE BY MOUTH EVERY 8 HOURS FOR 10 DAYS 10/16 completed Not Available Not Available Not Available triamcinol one acetonide 0.1 % topical ointment APPLY THIN LAYER TOPICALL Y TO THE AFFECTED AREA TWICE DAILY 07/29 completed Not Available Not Available Not Available docusate sodium 100 mg capsule TAKE 1 CAPSULE BY MOUTH TWICE DAILY 08/27 completed Not Available Not Available Not Available norethindr one acetate 5 mg tablet Take 1 tablet every day by oral route for 10 days. 09/13 completed Not Available Not Available Not Available ibuprofen 600 mg tablet TAKE 1 TABLET BY MOUTH EVERY 6 TO 8 HOURS NEEDED 08/27 completed Not Available Not Available Not Available polyethyle ne glycol 3350 17 gram/dose oral powder MIX 1 CAPFUL IN LIQUID AND DRINK BY MOUTH ONCE DAILY NEEDED FOR CONSTIPA TION 08/27 completed Not Available Not Available Not Available methylpred nisolone 4 mg tablets in a dose pack FOLLOW PACKAGE DIRECTIO NS 12/28 completed Not Available Not Available Not Available celecoxib 100 mg capsule TAKE ONE CAPSULE BY MOUTH ONCE DAILY WITH FOOD NEEDED 08/27 completed Not Available Not Available Not Available ondansetro n 4 mg disintegra ting tablet DISSOLVE ONE TABLET BY MOUTH EVERY 6 HOURS NEEDED FOR NAUSEA 12/28 completed Not Available Not Available Not Available cefdinir 300 mg capsule TAKE 1 CAPSULE BY MOUTH TWICE DAILY 08/27 completed Not Available Not Available Not Available Unisom (doxylamin e) 25 mg tablet Take 1 tablet every day by oral route at bedtime for 30 days, for nausea and vomiting . 08/09 completed Not Available Not Available Not Available naproxen 500 mg tablet TAKE 1 TABLET BY MOUTH TWICE DAILY 12/28 completed Not Available Not Available Not Available Miconazole -3 200 mg-2 % (9 gram) vaginal kit Insert 1 applicat orful every day by vaginal route at bedtime for 3 days. 08/09 completed Not Available Not Available Not Available nitrofuran toin monohydrat e/macrocry stals 100 mg capsule TAKE 1 CAPSULE BY MOUTH EVERY 12 HOURS FOR 5 DAYS DIRECTED FOR UTI 12/18 completed Not Available Not Available Not Available chlorhexid ine gluconate 0.12 % mouthwash SWISH AND SPIT 10 ML BY MOUTH TWICE DAILY active Not Available Not Available No t Available Seasonique 0.15 mg-30 mcg (84)/10 mcg(7) tablets,3 month dose pack Take 1 tablet every day by oral route. 05/03 completed Not Available Not Available Not Available hydrochlor othiazide 12.5 mg tablet TAKE 1 TABLET BY MOUTH EVERY DAY active Not Available Not Available No t Available FeroSul 325 mg (65 mg iron) tablet TAKE 1 TABLET BY MOUTH EVERY DAY active Not Available Not Available No t Available Calcium with Vitamin D3 600 mg (carbonate )-10 mcg (400 unit) capsule Take 1 capsule twice a day by oral route. 11/14 completed Not Available Not Available Not Available Calcium with Vitamin D 600 mg-10 mcg (400 unit) tablet Take 1 tablet twice a day by oral route. 07/29 completed Not Available Not Available Not Available Se-Sonia 19 Chewable 29 mg iron-1 mg tablet TAKE 2 TABLETS BY MOUTH ONCE DAILY 2023 active Not Available Not Available Not Avai lable Lo Loestrin Fe 1 mg-10 mcg (24)/10 mcg (2) tablet Take 1 tablet every day by oral route. 06/25 completed Not Available Not Available Not Available Vitamin D3 50 mcg (2,000 unit) capsule Take 1 capsule every day by oral route. 05/03 completed Not Available Not Available Not Available Nexplanon 68 mg subdermal implant Inject 1 implant by subcutan eous route. 2023 active Not Available Not Available Not Avai lable 28 mg iron-800 mcg tablet 1 tablet PO once daily 2023 active Not Available Not Available Not Avai lable calcium 600 mg (as carbonate) -vitamin D3 20 mcg (800 unit) tablet Take 1 tablet twice a day by oral route. 01/07 completed Not Available Not Available Not Available Linzess 145 mcg capsule TAKE 1 CAPSULE BY MOUTH EVERY DAY IN THE MORNING 07/17 completed Not Available Not Available Not Available Linzess 290 mcg capsule Take 1 capsule every day by oral route. 07/29 completed Not Available Not Available Not Available Estarylla 0.25 mg-0.035 mg tablet 01/07 completed Not Available Not Available Not Available Xulane 150 mcg-35 mcg/24 hr transderma l patch 01/07 completed Not Available Not Available Not Available Junel Fe 24 1 mg-20 mcg (24)/75 mg (4) tablet 1qd 06/25 completed Not Available Not Available Not Available Preparatio n H (Witch Lisette) 20 % topical pads Apply 1 pad as needed by topical route. 08/27 completed Not Available Not Available Not Available Gummies 400 mcg-35 mg-25 mg-5 mg chewable tablet Take 2 tablets every day by oral route for 30 days, for pre-jayden l. 01/29 completed Not Available Not Available Not Available Annovera 0.15 mg-0.013 mg/24 hr vaginal ring Insert 1 vaginal ring by vaginal route for 365 days. 01/20 completed 2 Pt has not been using the device. Pt states not having interco urse. Not Available Not Available Not Available WesTab Plus 27 mg iron-1 mg tablet TAKE 1 TABLET BY MOUTH EVERY DAY 08/07 completed Not Available Not Available Not Available miconazole nitrate 2 % topical cleanser UNWRAP AND INSERT 1 SUPPOSIT ORY VAGINALL Y EVERY DAY FOR 3 DAYS 08/07 completed Not Available Not Available Not Available Vitals Date Recorded Body height Body mass index (BMI) Body weight Systolic And Diastolic Provider Name and Address Organization Details Last Updated DateTime 05/07/2024 170.18 cm 39.2 kg/m2 909666.84 g 102/70 mm[Hg] WIL Wiggins [facility] 05/07/2024 12:24:11 Date Recorded Body height Body mass index (BMI) Body weight Systolic And Diastolic Provider Name and Address Organization Details Last Updated DateTime 08/27/2024 170.18 cm 39.5 kg/m2 081974 g 134/88 mm[Hg] Robina Hill [facility] 08/27/2024 15:02:24 Date Recorded Body height Body mass index (BMI) Body weight Provider Name and Address Organization Details Last Updated DateTime 02/13/2024 170.18 cm 41.3 kg/m2 905635.39 g Rosy Saba MA [facility] 02/13/2024 11:26:51 Date Recorded Systolic And Diastolic Provider Name and Address Organization Details Last Updated DateTime 02/13/2024 109/70 mm[Hg] Nickie Lopez MA [facility] 02/12 11:33:34 Date Recorded Body height Body mass index (BMI) Body weight Heart rate Oxygen saturation Oxygen saturation in Arterial blood by Pulse oximetry Systolic And Diastolic Provider Name and Address Organization Details Last Updated DateTime 170.18 cm 38.5 kg/m2 729565. 72 g 8 /min 98 % 98 % 132/94 mm[Hg] Nancy Alarcon MA [facility] 10:43:36 Date Recorded Systolic And Diastolic Provider Name and Address Organization Details Last Updated DateTime 03/26/2024 124/82 mm[Hg] Nancy Alarcon MA [facility] 03/26/2024 12:04:34 Date Recorded Body height Body mass index (BMI) Body weight Heart rate Oxygen saturation Oxygen saturation in Arterial blood by Pulse oximetry Systolic And Diastolic Provider Name and Address Organization Details Last Updated DateTime 170.18 cm 38.6 kg/m2 748389. 87 g 74 /min 96 % 96 % 140/100 mm[Hg] Nickie Lopez MA [facility] 4 11:37:01 Social History Question Answer Notes LastModified by Organizat ion Details LastModified Time Tobacco Smoking Status Former Smoker 07/29/22 pt states smokes louise Garcia MA null, [facility] 07/18/2023 14:30:17 Do You Have An Advance Directive? No [email or web address] Information not available 09/22/2015 Is Blood Transfusion Acceptable In An Emergency? Yes Information not available 09/22/2015 What Is Your Level Of Caffeine Consumption? Occasional [email or web address] Information not available 06/25/2016 How Much Tobacco Do You Chew? None [email or web address] Information not available 09/22/2015 In The 14 Days Before Symptom Onset, Have You Had Close Contact With A Laboratory-confi rmed COVID-19 While That Case Was Ill? No Information not available 08/08/2023 In The 14 Days Before Symptom Onset, Have You Had Close Contact With A Person Who Is Under Investigation For COVID-19 While That Person Was Ill? No Information not available 08/08/2023 Have You Been To An Area Known To Be High Risk For COVID-19? No Information not available 08/08/2023 What Type Of Diet Are You Following? REGULAR Information not available 09/22/2015 Which Illicit Or Recreational Drugs Have You Used? Denies [email or web address] Information not available 09/22/2015 Education 11 [email or web address] Information no t available 09/22/2015 Live Alone Or With Others? With Others Daughter And Mom [email or web address] Information not available 06/25/2016 What Was The Date Of Your Most Recent Tobacco Screening? 08/27/2024 [email or web address] Information not available 08/27/2024 How Many Children Do You Have? 2 Information not available 01/08/2020 Performs Monthly Self-breast Exam? No [email or web address] Information not available 09/22/2015 Do You Use Protection During Sex? Always [email or web address] Information not available 09/22/2015 What Is Your Relationship Status? Single Information not available 09/22/2015 Seat Belts Used Routinely Yes [email or web address] Information not available 09/22/2015 Are You Sexually Active? Yes [email or web address] Information not available 09/22/2015 Do You Have Smoke And Carbon Monoxide Detectors In Your Home? Yes Information not available 01/20/2022 Are You Passively Exposed To Smoke? No Information not available 01/20/2022 How Much Tobacco Do You Smoke? No [email or web address] Information not available 09/22/2015 General Stress Level Medium [email or web address] Information not available 09/22/2015 Do You Use Sunscreen Routinely? No [email or web address] Information not available 09/22/2015 Has Tobacco Cessation Counseling Been Provided? Yes Information not available 01/20/2022 On What Date Was Tobacco Cessation Counseling Provided? 08/27/2024 [email or web address] Information not available 08/27/2024 How Many Years Have You Smoked Tobacco? 0 [email or web address] Information not available 09/30/2015 Sex: Female Functional Status Question Answer Note LastModified by Organizat ion Details LastModified Time Do you use any illicit or recreational drugs? Yes marijuana every now and then Information not available 01/20/2022 Do you or have you ever used any other forms of tobacco or nicotine? No [email or web address] Information not available 07/29/2022 What is your level of alcohol consumption? Occasional Information not available 01/08/2020 Do you or have you ever used smokeless tobacco? Never used smokeless tobacco Information not available 08/13/2019 Are you currently employed? 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 Never used electronic cigarettes Information not available 08/13/2019 What is your exercise level? Occasional [email or web address] Information not available 09/22/2015 Mental Status None recorded. Family History Relationship Description Onset Age of this Age Resolved Age Notes LastModified by Organization Details LastModified Time Father No current problems or disability [email or web address] Not available 05/2016 12:17:12 Mother No current problems or disability [email or web address] Not available 05/2016 12:17:12 Medical History Condition Response Coronary Artery Disease N Kidney Cyst N Blood Diseases N Hyperthyroidism N Blood disorders N Blood Transfusion N MRSA N Emphysema N Depression N COPD N Blood Clots N Pneumonia N Premature N Peripheral Arterial Disease N Edema N TIA N Headaches/Migraines N Anxiety Disorder N Obesity N Polyps N Infertility N Acid Reflux (GERD) N Hematuria N Stroke N Neck Injury N Polio N Hospital Admission other than N Neurologic Disorder N Other Sleep Disorders N Rheumatoid Arthritis N Fibromyalgia N Abdominal Aortic Aneurysm Repair N Kidney Disease N Heart Conditions N Heart Disease/Heart Problems N Hospitalizations N Brain Tumors N Acne Y Skin Problems N Eating Disorder N Meningitis N Constipation N Tuberculosis N Cerebral Palsy N Myocardial Infarction N Asthma N Substance Abuse N Peripheral Vascular Disease N Vertigo N Sleep Disorder N Cirrhosis N Pulmonary Embolism N Chicken Pox Y Hematologic Disease N Flomax Use Past or Present N Anxiety/Depression N Thyroid Disease N Colon Cancer N Lung Disease N Glaucoma N Developmental or Behavioral Disorders N Bipolar N Pacemaker N Diverticulitis/Diverticulosis N Orthopedic Problems N Anesthesia Complications N Orthotics N Head Injury/Concussion N Congenital Anomalies N Ulrich Bite N Chronic Kidney Disease N Endometriosis N Liver Disease N Schizophrenia N Dialysis N Speech Delay N Chronic Obstructive Pulmonary Disease N Parkinson's Disease N Thyroid Problems N GI Problems N Developmental Delay N Anemia N Multiple Sclerosis N Immune System Disorder N Colon Polyps N Heart Attack (AL) N Diabetes N Cardiomyopathy N Blood Transfusions N Heart Problems/Murmur N Eye Trauma N Congestive Heart Failure (CHF) N Valvular Heart Disease N Hyperlipidemia N Double Vision N Abuse/Domestic Violence N Hepatitis B N Lupus N Epilepsy/Seizures N Reflux/GERD N Aneurysm N Heart Disease N Bronchitis N Pre-Eclampsia N Hypertension N Heart Failure N Other N Gout N High Blood Pressure N Atrial Fibrillation N Kidney Stones N Head Trauma/Injury N Congenital Heart Disease N Spine Problems N Gastrointestinal Disease N Lung Mass N Sinusitis N Obstructive Sleep Apnea N Muscle, Joint, or Bone Problems N Autoimmune disease N Vision or Eye Problems N Arthritis N Blood Clot N Cancer N Seasonal allergies Y Leg or Foot Ulcers N Raynaud's Disease N Aortic Aneurysm N Arrhythmia N Headaches N Heart Problems N Ambloypia N Ear or Hearing Problems N Hyperparathyroidism N Migraines N Artificial Joints N Kidney or Bladder Problems N NSAID Use N Encephalitis N PTSD N Ulcers N Prostate Hypertrophy N Bleeding Disorder N AIDS/HIV N Urinary Tract Infection N Back Problems N Allergies N Atrial Flutter N GERD/Reflux N Hepatitis N Autism Spectrum Disorder (ASD) N Breast Cancer N Hernia N Hypothyroidism N Breast Problem N Genitourinary Disease N Deep Vein Thrombosis N Varicose Veins N Cystic Fibrosis N Hearing Loss N Developmental Problems N Carotid Disease N Vitamin D Deficiency N ADHD N Bladder or Kidney Problems N High Cholesterol N [place] N Valvular Abnormalities N Psychiatric/Mental Health Condition N Organ Transplant N Foot Deformity N Allergies/Hayfever N Dyslipidemia N Hyponatremia N Diabetic Eye Disease N Osteoporosis/Osteopenia N Back Pain N Proteinuria N Mental Illness N Neurological Problems N Ovarian Cancer N Bedwetting N Seizures/Epilepsy N Kidney Failure N Ocular trauma N Diverticulitis N Dementia N Sleep Apnea N Mental Problems N Warfarin Management N Osteoporosis N Gynecological History Statement/Question Response Abnormal Pap N Flow Heavy Date of LMP 03/17/2024 On BCP's at Conception? Yes STIs/STDs Y HPV Vaccine Y Duration of Flow (days) 7 Age at Menarche 13 Current Control Method None Age at First Child 16 Frequency of Cycle (Q days) 29 Sexually Active? Y Menses Monthly N Date of Last Pap Smear 01/20/2022 Sexual Problems? N LMP Approximate Desired Control Method None Obstetrics History GPAL:G 5 P 3 0 2 3 Type Value Multiple Births 0 Full Term 3 Induced 1 Spontaneous 1 Premature 0 Living 3 Ectopics 0 Total 5 Immunizations Vaccine Type Date Status Note Provider Nam e and Address Organization Details Recorded Time HPV9 6 completed Not Available [facility] 04/28/2019 02:47:18 HPV9 6 completed Not Available [facility] 04/28/2019 02:41:31 Hib, unspecified formulation 3 completed Pj Kim LPN null, [place] [facility] 11/23/2023 16:54:26 Hib, unspecified formulation 5 completed Pj [place] [facility] 11/23/2023 16:54:26 Hib, unspecified formulation 2 completed Pj [place] [facility] 11/23/2023 16:54:26 IPV 3 completed Pj [place] [facility] 11/23/2023 16:54:26 IPV 6 completed Pj [place] [facility] 11/23/2023 16:54:26 IPV 2 completed Pj [place] [facility] 11/23/2023 16:54:26 MMR 6 completed Pj [place] [facility] 11/23/2023 16:54:26 MMR 5 completed Pj [place] [facility] 11/23/2023 16:54:26 COVID-19, mRNA, LNP-S, PF, 30 mcg/0.3 mL dose 1 completed Pj [place] [facility] 11/23/2023 16:54:26 Tdap 6 completed Randavea Judy, [employer] [place] [facility] 11/23/2023 16:54:26 Hep B, unspecified formulation 5 completed Ranessa Judy, [employer] [place] [facility] 11/23/2023 16:54:26 polio, unspecified formulation 5 completed Pj Kim, [employer] [place] [facility] 11/23/2023 16:54:26 HPV, quadrivalent 7 completed Randavea Judy, [employer] [facility] 11/23/2023 16:54:26 HPV, quadrivalent 7 completed Pj Kim, [employer] [facility] 11/23/2023 16:54:26 Hep B, adolescent or pediatric 3 completed Pj Kim [employer] [place] [facility] 11/23/2023 16:54:26 Hep B, adolescent or pediatric 2 completed Pj iKm, [employer] [facility] 11/23/2023 16:54:26 Hep A, pediatric, unspecified formulation 6 completed Pj Kim, [employer] [facility] 11/23/2023 16:54:27 meningococcal C conjugate 6 completed Pj Kim, [employer] [facility] 11/23/2023 16:54:27 DTaP 3 completed Pj Kim, [employer] [facility] 11/23/2023 16:54:27 DTaP 6 completed Pj Kim, [employer] [facility] 11/23/2023 16:54:27 DTaP 5 completed Pj Kim, [employer] [place] [facility] 11/23/2023 16:54:27 DTaP 2 completed Pj Kim [employer] [place] [facility] 11/23/2023 16:54:27 Hep A, adult 8 completed Not Available [facility] 08/27/2024 14:41:44 Hep B, adult 8 completed Not Available [facility] 08/27/2024 14:41:44 MMR 8 completed Not Available [facility] 08/27/2024 14:41:44 HPV9 9 completed Not Available [facility] 04/28/2019 02:44:15 Tdap 4 completed Pj Kim LPN [facility] [place] [facility] 12/19/2023 13:04:14 Past Encounters Encounter ID Performer Location Encounter Start Date Encounter Closed Date Diagnosis/Indication Diagnosis SNOMED-CT Code Diagnosis ICD10 Code Diagnosis Note [id number] MD Courtney Hernandez (RENT AND HOUSING INVESTIGATOR) [address] [place] [address] [id number] 09/22/2015 15:14:57 09/22/2015 18:31:42 Gynecologic examination 93858094 Z01.419 Z11.51 Venereal d isease screening 602338808 Z11.3 Subcutaneo us contraceptive implant palpable 487460698 Z30.49 removal of nexplanon. Will use loloestrin for contracept opal. Family emigdio nning surveillance 812052976 Z30.09 Active or passive immunization 395862151 Z23 [id number] [facility]IGATOR) [address] [place] [address] [id number] 0 09/30/2015 15:55:22 09/30/2015 17:37:32 Subcutaneous contraceptive implant palpable 176727219 Z30.49 removal of nexplanon. Will use loloestrin for contracept opal. stitch removal Family emigdio nning surveillance 176229236 Z30.09 [id number] MD Courtney Roach (RENT AND HOUSING INVESTIGATOR) [address] [place] [address] [id number] 0 12/02/2015 09:58:43 12/02/2015 12:37:28 Active or passive immunization 697883775 Z23 Gardasil #2 [id number] MD Courtney Mirza (RENT AND HOUSING INVESTIGATOR) [address] [place] [address] [id number] 0 06/10/2016 11:32:27 06/11/2016 13:47:21 Routine care 899798025 Z34.91 Tubo-ovarian abscess 589 54964 N70.93 was treated with IV antibiotic s. improved symptoms Female pel steph inflammatory disease 672402678 N73.9 was treated with IV antibiotic s. improved symptoms. she say she has prescripti on for azythromyc in. Advised to continue it Urinary tr act infectious disease 29404549 N39.0 Candidiasis of vagina 72 525016 B37.3 [id number] MD Courtney Hernandez (RENT AND HOUSING INVESTIGATOR) [address] [place] [address] [id number] 0 06/25/2016 14:31:27 06/25/2016 15:10:55 [id number] MD Courtney Hernandez (RENT AND HOUSING INVESTIGATOR) [address] [place] [address] [id number] 0 08/16/2016 10:49:26 08/17/2016 15:55:05 Routine care 722307884 Z34.82 [id number] MD Courtney Hernandez (RENT AND HOUSING INVESTIGATOR) [address] [place] [address] [id number] 0 10/13/2016 14:49:56 10/14/2016 15:58:07 Exposure to sexually transmissible disorder 751016429 Z20.2 Gynecologi c examination 02550842 Z11.51 Irritable bowel syndrome 67599856 K58.9 Family emigdio nning surveillance 179782107 Z30.09 Pt received bc samples from clinic that she is currently taking and will switch to RX as below [id number] MD Courtney Mirza (RENT AND HOUSING INVESTIGATOR) [address] [place] [address] [id number] 01/07/2017 15:23:51 01/10/2017 09:41:21 Complex ovarian cyst 6289713937 03 N83.299 Counseled about possible causes including hemorrhagi c cyst, endometrio mas, benign and malignant conditions of ovaries, tubal cysts, TOA--etc. Reviewed ER records. normal WBC and no fever. Repeat ultrasound in 2 months Bacterial vaginosis 4197 46028 N76.0 Counseled about it. [id number] MD Courtney Mirza (RENT AND HOUSING INVESTIGATOR) [address] [place] [address] [id number] 0 05/03/2017 11:26:58 05/03/2017 13:09:26 test positive 200970340 Z32.01 Will check BHCG and pelvic ultrasound since had pelvic pain. precaution s discussed. [id number] MD Courtney Mirza (RENT AND HOUSING INVESTIGATOR) [address] [place] [address] [id number] 05/10/2017 11:52:13 05/10/2017 13:24:14 Routine care 387018155 Z34.91 Gallstone 807291794 K80. 20 [id number] MD Courtney Hernandez (RENT AND HOUSING INVESTIGATOR) [address] [place] [address] [id number] 0 06/28/2018 15:37:31 06/28/2018 17:57:26 Family planning surveillance 822073925 Z30.09 Nexplanon Gynecologi c examination 81887212 Z11.51 told pt results will be sent via portal Administra tion of viral vaccine 38986122 Z23 #3 Exposure t o sexually transmissible disorder 439584361 Z20.2 told pt results will be sent via portal Insertion of subcutaneous contraceptive done 9697129508 43156 Z30.46 insertion 06/28/18 Terminatio n of 69688392 Z33.2 performed at [facility] 06/17/18 [id number] MD Courtney Hernandez (RENT AND HOUSING INVESTIGATOR) [address] [place] [address] [id number] 0 11/14/2018 14:51:05 11/15/2018 13:26:04 Family planning surveillance 245549105 Z30.09 Nexplanon Menorrhagia 531505705 N9 2.0 Folliculitis 39922375 L7 3.9 Methicilli n resistant Staphylococcus aureus infection 969996671 A49.02 Exposure t o sexually transmissible disorder 618321200 Z20.2 told pt results will be sent via portal [id number] MD Courtney Hernandez (RENT AND HOUSING INVESTIGATOR) [address] [place] [address] [id number] 0 08/13/2019 11:01:19 08/15/2019 07:49:10 Group B Streptococcus carrier 7650289133 103 Z22.330 Bacterial vaginosis 4197 99110 N76.0 Family emigdio nning surveillance 445310031 Z30.09 Nexplanon [id number] MD Courtney Hernandez (RENT AND HOUSING INVESTIGATOR) [address] [place] [address] [id number] 01/08/2020 13:42:49 01/09/2020 10:43:40 Group B Streptococcus carrier [id number] 103 Z22.330 Exposure t o sexually transmissible disorder 822888107 Z20.2 told pt results will be sent via portal [id number] YOHANNES CORRIGAN (RENT AND HOUSING INVESTIGATOR) [address] [place] [address] [id number] 03/13/2020 15:23:37 03/17/2020 13:11:20 Bacterial vaginosis 114462600 N76.0 Milky discharge and pruritis x weeks. Physical exam with copious milky malodorous discharge. Consistent with BV, will treat. Start metrogel as prescribed . Use mild, unscented soaps or plain water when washing, avoid any products with fragrance. Wear cotton underwear and loose fitting clothing. Wash only once per day, do not overscrub or douche. Can use ice pain or soak in cool water to relieve itching, avoid scratching . [id number] MD Courtney Hernandez (RENT AND HOUSING INVESTIGATOR) [address] [place] [address] [id number] 0 11/18/2020 16:48:12 11/25/2020 09:09:20 Family planning surveillance 632913964 Z30.09 Nexplanon Surveillan ce of subcutaneous contraceptive implant 039466307 Z30.46 [id number] MD Courtney Hernandez (RENT AND HOUSING INVESTIGATOR) [address] [place] [address] [id number] 0 02/04/2021 15:59:15 02/06/2021 08:44:26 Family planning surveillance 034836648 Z30.09 Removal of subcutaneous contraceptive 419182208 Z30.46 Nexplanon inserted 06/28/18. Removed 02/04/21. Obesity 196908757 E66.9 Provided education and counseling today. Estrogen Anovera may improve weight control. Encouraged PCP establishm ent. [id number] YOHANNES CORRIGAN (RENT AND HOUSING INVESTIGATOR) [address] [place] [address] [id number] 0 01/20/2022 10:46:52 01/21/2022 12:05:47 Gynecologic examination 95746099 Z01.411 Cervical cancer screening: Last Pap 06/28/2018, updated todayBreas t cancer screening: Reviewed recommenda tions for initiation at age 40 with annual screening. Discussed SBESTI screening: routine nuswab, treat as needed. Safe sex practices discussed. Contracept ion: not practiced or desiredDie t/exercise : Counseled regarding importance of physical activity, healthy diet and appropriat e calcium intake.RTC in 1yr Vulvovaginitis 75119065 N76.0 Milky discharge and vulvar/per ineal pruritis x 2 months. Physical exam with copious milky malodorous discharge. Consistent with BV, will treat. Rx triamcinol one for vulvitis. Advised to use mild, unscented soaps or plain water when washing, avoid any products with fragrance. Wear cotton underwear and loose fitting clothing. Wash only once per day, do not overscrub or douche. Can use ice pain or soak in cool water to relieve itching, avoid scratching . May use Boric Acid suppositor ies and/or metrogel to prevent recurrent bacterial infections . Constipation 97644456 K5 9.00 Pt w/ 2 BMs per week. Rx Miralax and stool softeners. Increase water and fiber in diet. Avoid straining. [id number] YOHANNES CORRIGAN (RENT AND HOUSING INVESTIGATOR) [address] [place] [address] [id number] 0 07/29/2022 09:06:39 08/10/2022 10:24:20 Vaginal discharge 720166445 N89.8 thick white discharge consistent with bvEmpiric antibiotic gel sentUse mild, unscented soaps or plain water when washing, avoid any products with fragrance. Genital he rpes simplex 76454683 A60.9 H/o hsv-1 with vaginal sore on exam. Continue antiviral twice daily x 1 week. Safe sex practices discussed. [id number] YOHANNES CORRIGAN (RENT AND HOUSING INVESTIGATOR) [address] [place] [address] [id number] 0 12/28/2022 10:42:12 01/11/2023 10:04:27 Chronic idiopathic constipation 35930461 K59.04 Has used Linzess in the past with success, will renew today. Discussed increased fiber and water in diet. Avoid straining. RTC if symptoms do not improve. Pruritus ani 27011338 L2 9.0 Normal HEATHER today. Discussed proper hygiene and constipati on management as above. Tucks pads provided and hydrocorti sone cream sent to pharmacy. Obesity 896707107 E66.9 per BMI 38.5 Herpes simplex 91415853 B00.9 Pt requesting refill on Valtrex which she takes for HSV suppressio n. Denies recent outbreaks. Safe sex discussed. [id number] MD Courtney HAND (RENT AND HOUSING INVESTIGATOR) [address] [place] [address] [id number] 0 07/18/2023 14:06:41 08/01/2023 14:56:24 Routine care 089492687 Z34.81 OB plan: 32 y/o ; ERNESTO 02/24/2024 based on LMP - No USPre-Preg hafsa Weight: 245 lbs, BMI: elevatedPr e-Eclampsi a Risk: pos Continuity Resident:[facility] Risk Level: moderatePr oblem List:Hx of ovarian cyst in previous needing surgical interventi onHx of gestationa l HTNGBS positive in previous (has true penicillin allergy)Ob esityHx of C section x2 Plan:Initi al labs and US ordered todayHavin g left sided pain, feels like cyst pain, low threshold for MFM transferRe fill unisom and R7Selpbib at 12 weeksFollo w up in 4 weeks INITIAL LABS Date: obtained 4Bl ood Type:Rh Type:Antib johnny Screen:CBC :VDRL/RPR: Urine Culture:HB sAg:HepC:H IV:Rubella :Varicella :CF:SS: consistent withUDS: Dating US: DateLMP: GA ERNESTO: Patient is of dating.DUS : Date AUA: ERNESTO: Discrepanc yEDD: Based on Pap: UTD; cotesting neg 01/20/2022 Vaginal Cultures: Yeast: ;BV:GC:; Chlamydia: ;Trich: Sequential /QUAD/Mate rniT21:; consistent with Anatomy Scan: 26-28 weeks: DateGTT: ; 3HR GTTCBC:Uri nalysis:HI V:RPRTdap: Date:Rhoga m: Date: 36 weeksVagin al Cultures: Yeast: ;BV:GC:; Chlamydia: ;Trich:GBS Limited US:Situati onal Awareness: Support Person(s): FOB, motherBaby Name(s):Ed [place]: negativePH Q9: negative GAD7: negativeAC ES: 1Resilienc e: highSDOH:D esired delivering facility: [facility] to participat e in group visits: yesPlannin g to breastfeed : noCircumci krishna yesEpidura l yesPost-pa rtum contracept ion noneOpen to vaccinatio n:Tdap: yesCOVID: yesFlu: yesHome visits ok: no Group B St reptococcus carrier [id number] 103 Z22.330 Hx of GBS with previous pregnancie s Vomiting of 90 048799 O21.9 Has been on Unisom and B6 with improvemen t in symptomsWi ll refill Herpes simplex 11174837 B00.9 Has active lesion on bottom lipWill prescribe valacyclov ir treatment and prophylaxi sWill need prophylaxi s before delivery Past pregn harvinder history of gestational hypertension 154859474 Z87.59 Did not requite medication sWill get baseline preE labsBP stable today Deliveries by [id number] O82 Hx of x2 [id number] MD Courtney Barreto (RENT AND HOUSING INVESTIGATOR) [address] [place] [phone] 08/08/2023 10:46:23 08/08/2023 10:55:29 Routine care 602121840 Z34.91 - 32 y/o presenting @11.3 ERNESTO 02/24/24 based on LMP supported here for routine care- no acute concerns or complaints this visit- given anticipato ry guidance, to continue PNV- follow up in 4 weeks- of note ultrasound ordered at last visit however unable to find in [place] and will need ultrasound at next visit Continuity Resident:Miguel A reghafsa Risk Level: moderatePr oblem List:Hx of ovarian cyst in previous needing surgical interventi onHx of gestationa l HTNGBS positive in previous (has true penicillin allergy)Ob esityHx of C section x2 INITIAL LABS Date: obtained 4Bl ood Type: O+Rh Type: negativeAn tibody Screen: negativeCB C: WNLVDRL/RP R: nonreactiv eUrine Culture: WNLHBsAg: negativeHe pC: nonreactiv eHIV: nonreactiv eRubella: immuneVari liang: immuneCF:_ ___SS: consistent with ____UDS: unremarkab le Dating US: DateLMP: GA ERNESTO: Patient is ____ of dating. DUS: Date AUA: ERNESTO: Discrepanc y ____ ERNESTO: Based on ____ Pap: UTD; cotesting neg 01/20/2022 Vaginal Cultures: Yeast: -;BV: -GC: - ; Chlamydia: +;Trich: - Situationa l Awareness: Support Person(s): FOB, motherBaby Name(s):Ed [place]: negativePH Q9: negative GAD7: negativeAC ES: 1Resilienc e: highSDOH:D [facility] group visits: yesPlannin g to breastfeed : noCircumci krishna yesEpidura l yesPost-pa rtum contracept ion noneOpen to vaccinatio n:Tdap: yesCOVID: yesFlu: yesHome visits ok: no [id number] Desiree Nguyen MD [place] [address] [facility] [address] [place] [address] 08/10/2023 11:29:07 08/12/2023 03:48:08 [id number] Z33.1 Patient has been educated on the importance of daily vitamin intake. She has been taking acyclovir for herpes and has been advised to take it only during outbreaks and from week 30 of to reduce the risk of transmissi on to the during delivery. She has been managing tooth pain with Tylenol and Orajel.Emigdio n:Encourag ed the patient to grape picker her vitamins from the pharmacy and to start taking them daily.Furt her educated the patient on the correct usage of acyclovir for managing her herpes condition during . Additional lyjennifere jaquan that she schedule an appointmen t with [facility] in [place] to address her tooth pain.Follo w up next week to ensure an appointmen t was obtain [id number] MD Courtney Barreto (RENT AND HOUSING INVESTIGATOR) [address] [place] [phone] 09/12/2023 10:49:16 09/12/2023 10:52:20 Routine care 063086191 Z34.82 OB plan: 32 y/o ; ERNESTO 02/24/2024 based on US Plan:- Anticipato ry guidance given- Start Aspirin (obesity and socioecono radha status)- Continue iron supplement s for anemia- Obtain baseline PreE labs- Order Anatomy US and AFP today- Follow up in 4 weeks Anemia of 2734 2003 O99.019 Did not start iron supplement s yet Group B St reptococcus carrier [id number] 103 Z22.330 Hx of GBS with previous pregnancie s Herpes simplex 91905775 B00.9 No active lesionsWil l need prophylaxi s before delivery Past pregn harvinder history of gestational hypertension 422855379 Z87.59 Did not require medication sWill get baseline preE labs - for some reason they were not drawn with initial OB labs, will reorder todayBP stable today Positive s creening for depression on PHQ-9 (Patient Health Questionnaire 9) [id number] 65211 Z13.31 Discussed with patientDoe s not feel depressedW ill monitor for now Constipation 88894869 K5 9.01 Will start daily Miralax Cyst of left ovary 00903 41493 3034626 N83.202 2.6 cm Cyst of left ovary on US on 08/03/2023 [id number] MD Corutney Barreto (RENT AND HOUSING INVESTIGATOR) [address] [place] [phone] 10/17/2023 14:13:29 11/14/2023 15:46:44 Routine care 329556178 Z34.92 OB plan: 32 y/o ; ERNESTO 02/24/2024 based on US Problem List:Hx of ovarian cyst in previous needing surgical interventi onHx of gestationa l HTNGBS positive in previous (has true penicillin allergy)Ob esityAnemi a of PregnancyC onstipatio nOral Herpes2.6 cm Ovarian Cyst Plan:- Anticipato ry guidance given- Cont Aspirin (obesity and socioecono radha status)- Continue iron supplement s Vaginal discharge 969123 006 N89.8 ongoing for 2 weeks now. Sexually active about 7 days ago. will rule out infection. Herpes simplex 80422450 B00.9 needs refill Hemorrhoids 62511430 K64 .9 Hemorrhoid noted on physical exam. Recommend using hydorcorti sone topical cream and preparatio n H. Encouraged diet rich in fruits and vegetables . Encourage using miralax to help soften stool. Follow up as needed. [id number] JAYCE SOLOMON MD [place] (RENT AND HOUSING INVESTIGATOR) [address] [place] [phone] 11/14/2023 09:34:24 11/22/2023 20:18:22 Routine care 619413215 Z34.92 OB plan: 32 y/o ; ERNESTO 02/20/2024 based on US Problem List:Hx of ovarian cyst in previous needing surgical interventi onHx of gestationa l HTNGBS positive in previous (has true penicillin allergy)Ob esityAnemi a of PregnancyC onstipatio nOral Herpes2.6 cm Ovarian Cyst Plan:- Anticipato ry guidance given- Cont Aspirin (obesity and socioecono radha status)- Continue iron supplement s- GTT, HIV, CBC ordered today- tdap ordered today, will come back for nurse visit Hemorrhoids 95817182 K64 .9 using hydorcorti sone topical cream and preparatio n H. Encouraged diet rich in fruits and vegetables . Encourage using miralax to help soften stool. Follow up as needed. Herpes simplex 52769849 B00.9 No active breakoutsC ontinue Acyclovir daily Anemia of 2732003 O99.019 Continue iron supplement s Asymptomat ic bacteriuria in 45254555 O23.32 Large leukocytes on urine dipAsympto maticWill send for full UA and culture Maternal o besity complicating , childbirth and the puerperium, antepartum 1062313509 07 O99.212 Recommend ed total weight gain of 11-20 lbs. Consider referral to nutrition for dietary counseling , encouraged 30 mins daily physical activity Growth ultrasound at 28 and 36 wks if BMI >35 or unable to palpate fundal height BMI 35 or greater consider monitoring weekly starting at 37 wks [id number] MD Courtney Barreto (RENT AND HOUSING INVESTIGATOR) [facility] [place] [address] 12/19/2023 11:39:34 01/05/2024 09:40:35 Routine care 530421310 Z34.92 Elizabeth is a 32 y/o presenting at 31.0 weeks dated by US; here for routine OB exam. Preg complicate d by: hx of ovarian cyst in previous needing surgical interventi on, hx of gestationa l HTN, GBS positive in previous , obesity, anemia, constipati on, oral herpes. Today, she reports concern for possible herpes breakout due to experienci ng some yellow vaginal discharge for past few days. Patient denies any vaginal bleeding or sudden gush of fluid. She has not recently visited OB triage or the emergency room. Patient continues to report good movement. No other concerns today. Problem List:-Hx of 2.6cm ovarian cyst in previous needing surgical interventi on-Hx of gestationa l HTN-GBS positive in previous (has true penicillin allergy)-O besity-Ane fred of - Constipati on-Oral Herpes Plan:- Anticipato ry guidance given- Patient admits to not taking ASA daily, encouraged to do so- Encouraged to continue taking iron supplement s-Patient is to RTC in 2 weeks Hemorrhoids 71505083 K64 .9 Patient has prior history of hemorrhoid s, currently using hydorcorti sone topical cream and preparatio n H. Encouraged diet rich in fruits and vegetables . Encourage using miralax to help soften stool. Follow up as needed. Herpes simplex 05598384 B00.9 Concerned about possible herpetic outbreak to vaginal area. States she has felt bumps down there over past few days. Examine did not reveal any herpes outbreak. Is prescribed Acyclovir 400mg, but states she was told by someone to take this only as needed. Instructed to take as prescribed . Anemia of 2733 2003 O99.019 Most recent CBC shows Hgb of 9.9 and Hct of 29.6. Patient is currently prescribed iron supplement s, encouraged to continue to take them. Asymptomat ic bacteriuria in 40208788 O23.32 Prior bacteria found in urine, will continue to monitor. Patient denies any pruritus, dysuria or hematuria. Maternal o besity complicating , childbirth and the puerperium, antepartum 7854998718 07 O99.212 BMI 39.3. BMI less than 18.5. Goal weight gain = 28-40 poundsBMI: 18.5-24.9. Goal weight gain = 25-35 poundsBMI: 25.0-29.9. Goal weight gain = 15-25 poundsBMI greater than or equal to 30.0. Goal weight gain = 11- 20 pounds - Educated pt to only increase diet by about 200 calories daily during 2nd trimester and 400 calories in the 3rd- Instructed pt to work towards, or maintain, moderate moderate intensity exercise about 3hr/wk or 15min/day- Instructed to continue ASA as prescribed Yellow vag inal discharge 383386328 N89.8 Patient concerned about yellow vaginal discharge today. No significan t discharge noted on PE. Will obtain Nuswab. Constipation 39396532 K5 9.01 Patient did not mention being constipate d since last visit. Care instructio ns provided. Cyst of left ovary 20236 45672 3884061 N83.202 2.6cm cyst on left ovary. Continue to monitor and follow up with surgery if needed, after delivery. [id number] MD Courtney HAND (RENT AND HOUSING INVESTIGATOR) [address] [place] [address] 01/02/2024 11:07:21 01/26/2024 14:56:41 Routine care 497665851 Z34.93 Elizabeth is a 32 y/o presenting at 33.0 weeks dated by US; here for routine OB exam. Problem List:- Hx of gestationa l HTN- GBS positive in previous (has true penicillin allergy)- Obesity- Anemia of - Constipati on- Oral Herpes- Anticipato ry guidance given- continue daily aspirin- continue daily iron supplement s-Patient is to RTC in 2 weeks Herpes simplex 92847091 B00.9 Possible herpes outbreak during . Consider suppressiv e therapy starting at 36 weeks. Anemia of 2733 2003 O99.019 Most recent CBC shows Hgb of 9.9 and Hct of 29.6. Patient is currently prescribed iron supplement s, encouraged to continue to take them. Maternal o besity complicating , childbirth and the puerperium, antepartum 3383913847 07 O99.210 BMI 39Recommen ded weight gain during is 11-20 lbs.Encour aged 30 minutes of physical activity daily. Cyst of left ovary 02986 24980 3052781 N83.202 2.6cm cyst on left ovary. Continue to monitor. [id number] MD Courtney Barreto (RENT AND HOUSING INVESTIGATOR) [facility] [place] [address] 01/16/2024 11:39:45 01/27/2024 11:07:46 Routine care 045345029 Z34.93 Elizabeth is a 32 y/o presenting at 35.0 weeks dated by US; here for routine OB exam. Problem List:- Hx of gestationa l HTN- GBS positive in previous (has true penicillin allergy)- Obesity- Anemia of - Constipati on- Oral HerpesPlan :- Anticipato ry guidance given- continue daily PNV and aspirin- continue daily iron supplement s. Obtain CBC today- US scheduled for 01/22- protienuri a, normal BP, obtain PreE labs- Patient is to RTC in 1 week Herpes simplex 83248301 B00.9 Possible herpes outbreak during . On suppressiv e therapy with Acyclovir Anemia of 2733 2003 O99.019 Most recent CBC shows Hgb of 9.9 and Hct of 29.6. Patient is currently prescribed iron supplement s, encouraged to continue to take them.Niraj osborne CBC today Maternal o besity complicating , childbirth and the puerperium, antepartum 0708682966 07 O99.210 BMI 39Recommen ded weight gain during is 11-20 lbs.Encour aged 30 minutes of physical activity daily. Cyst of left ovary 67141 23064 5822658 N83.202 2.6cm cyst on left ovary. Continue to monitor. Acute cyst itis in , antepartum 3280758851 04 O23.12 Treated 8ultur e was negative Proteinuria 50917870 R80 .9 1+BP stable todayWill obtain PreE labs [id number] MD Courtney Barreto (RENT AND HOUSING INVESTIGATOR) [address] [place] [phone] 01/23/2024 11:09:54 02/10/2024 11:10:15 Routine care 498622158 Z34.93 Elizabeth is a 32 y/o presenting at 36.0 weeks dated by US; here for routine OB exam. Problem List:- Hx of gestationa l HTN- GBS positive (has true penicillin allergy)- Obesity- Anemia of - Constipati on- Oral Herpes (on acyclovir) Plan:- Anticipato ry guidance given- continue daily PNV and aspirin- continue daily iron supplement s. Obtain CBC today- GBS bacteruria . Will obtain swab for susceptibi lities due to penicillin allergy- proteinuri a, normal BP, obtain PreE labs- Patient is to RTC in 1 week Herpes simplex 19311249 B00.9 Possible herpes outbreak during . On suppressiv e therapy with Acyclovir Anemia of 2733 2003 O99.019 Most recent CBC shows Hgb of 9.9 and Hct of 29.6. Patient is currently prescribed iron supplement s, encouraged to continue to take them.Retaa t CBC today Maternal o besity complicating , childbirth and the puerperium, antepartum 3878258696 07 O99.210 BMI 39Recommen ded weight gain during is 11-20 lbs.Encour aged 30 minutes of physical activity daily.Init iate weekly BPP through delivery due to class II obesity (ordered 01/25/2024 ) Cyst of left ovary 98331 53418 1747984 N83.202 2.6cm cyst on left ovary. Continue to monitor. 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 Problem List:- Hx of gestationa l HTN- GBS positive (has true penicillin allergy)- Obesity- Anemia of - Constipati on- Oral Herpes (on acyclovir) Plan:- Anticipato ry guidance given- continue daily PNV and aspirin- continue daily iron supplement s.- GBS bacteruria . Treat w/ Vancomycin - PreE labs neg on 01/23/2024 - Weekly BPP/NST for obesity (ordered sent)- Patient is to RTC in 1 week Herpes simplex 88228756 B00.9 Possible herpes outbreak during . On suppressiv e therapy with Acyclovir Anemia of 2733 2003 O99.019 11/14/2023 CBC shows Hgb of 9.9 and Hct of 29.6.Repea t Hb 9.9 on 01/23/2024 Patient is currently prescribed iron supplement s, encouraged to continue to take them. Maternal o besity complicating , childbirth and the puerperium, antepartum 6211247683 07 O99.210 BMI 39Recommen ded weight gain during is 11-20 lbs.Encour aged 30 minutes of physical activity daily.Init iateweekly BPP through delivery due to class II obesity (ordered 01/25/2024 ) Cyst of left ovary 48407 76873 4584879 N83.202 2.6cm cyst on left ovary. Continue to monitor. Acute cyst itis in , antepartum 3757494451 04 O23.12 Treated ultur e was negative Proteinuria 50895027 R80 .9 BP stable todayPreE labs normal on 01/23/[address] reptococcus carrier 4497280541 103 Z22.330 Hx of GBS with previous pregnancie sGBS bacteruria on cultureRes istant to clindamyci n. Plan forvancomy cinat delivery. Vaginal discharge 493955 006 N89.8 Nuswab negativeRe solved [id number] MD Courtney Barreto (RENT AND HOUSING INVESTIGATOR) [facility] [place] [address] 02/06/2024 11:26:25 02/10/2024 11:53:20 Routine care 125448963 Z34.93 Elizabeth is a 32 y/o presenting at 38.0 weeks dated by 1st trimester US; here for routine OB exam. Problem List:- Hx of gestationa l HTN- GBS positive (has true penicillin allergy)- Obesity- Anemia of - Constipati on- Oral Herpes (on acyclovir) - GERDPlan:- Anticipato ry guidance given- continue daily PNV and aspirin- continue daily iron supplement s.- GBS bacteruria . Treat w/ Vancomycin - PreE labs neg on 01/23/2024 - Weekly BPP/NST for obesity- No cervical check today, will send to [facility] L[facility] to evaluate for active labor- most likely worsening GERD, discussed Tums and famotidine - Patient is to RTC in 1 week Herpes simplex 62283798 B00.9 Possible herpes outbreak during . On suppressiv e therapy with Acyclovir Anemia of 2733 2003 O99.019 11/14/2023 CBC shows Hgb of 9.9 and Hct of 29.6.Repea t Hb 9.9 on 01/23/2024 Patient is currently prescribed iron supplement s, encouraged to continue to take them. Maternal o besity complicating , childbirth and the puerperium, antepartum 6891705570 07 O99.210 BMI 39Recommen ded weight gain during is 11-20 lbs.Encour aged 30 minutes of physical activity daily.Week ly BPP through delivery due to class II obesity Cyst of left ovary 55704 93417 3612804 N83.202 2.6cm cyst on left ovary. Continue to monitor. Acute cyst itis in , antepartum 7753395350 04 O23.12 Treated ultur e was negative Proteinuria 65114510 R80 .9 BP stable todayResol vedPreE labs normal on 01/23/[address] reptococcus carrier 1145531959 103 Z22.330 Hx of GBS with previous pregnancie sGBS bacteruria on cultureRes istant to clindamyci n. Plan forvancomy cinat delivery. Vaginal discharge 153710 006 N89.8 Nuswab negativeRe solved Gastroesop hageal reflux disease without esophagitis 367478633 K21.9 Likely costochond ritis vs GERDDiscus sed conservati ve management including prn tums and famotidine Will send to L&D for evaluation of active labor [id number] JESSICA HARE MD [facility] (RENT AND HOUSING INVESTIGATOR) [facility] [place] [address] 02/13/2024 11:17:57 02/28/2024 09:11:53 Routine care 810338805 Z34.93 - Anticipato ry guidance given- continue daily PNV and aspirin- continue daily iron supplement s.- For GBS ppx, Tx w/ Vancomycin - Continue weekly BPP/NST- f/u urine Cx- f/u 1 wk Elizabeth is a 32 y/o presenting at 38.0 weeks dated by 1st trimester US; here for routine OB exam. Pre-Pregna ncy Weight: 245 lbs, BMI: elevatedPr e-Eclampsi a Risk: posContinu ity Resident: [facility] Risk Level: moderate Problem List:-Hx of 2.6cm ovarian cyst in previous needing surgical interventi on-Hx of gestationa l HTN-penici llin allergy (GBS positive)- Obesity-An emia of - Constipati on-Oral Herpes- GERD Herpes simplex 71860677 B00.9 Prior possible outbreak.P yanet:Contin ue Acyclovir ppx. Anemia of 2733 2003 O99.019 Hb 9.9 on 01/22.Plan :Continue Po Fe 325mg daily Maternal o besity complicating , childbirth and the puerperium, antepartum 2588097830 07 O99.210 BMI >40Plan:Re commend continued lifestyle modificati ons & exercise >150mins/w kWeekly BPP Cyst of left ovary 88407 75032 7156291 N83.202 Prior 2.6cm cyst on left ovary. Asymptomat ic at this time.Plan: Continue to monitor. Acute cyst itis in , antepartum 7956577162 04 O23.12 Resolved. S/p Tx.Plan:Barth pportive care Proteinuria 66955651 R80 .9 Prior. Resolved. 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 7522525943 103 Z22.330 Hx of prior GBS preg & prior GBS Urine Cx w/ resistance to clinda.Emigdio n:Needs ppx at delivery with vancomycin Vaginal discharge 387860 006 N89.8 Resolved.P yanet:Suppor tive care Gastroesop hageal reflux disease without esophagitis 195681131 K21.9 Asymptomat ic at this time.Plan: Continue prn tums & famotidine [id number] MD Courtney Barreto (RENT AND HOUSING INVESTIGATOR) [address] [place] [phone] 03/19/2024 09:48:49 04/13/2024 11:59:53 state 50139939 Z39.2 doing wellantici patory guidance givenConti nue PNVBPs still high, increase nifedpine to 60 mgFollow up in 1 week for BP check and nexplanon placementG iven return to work letter for afte 04/09 Herpes simplex 17224438 B00.9 Possible herpes outbreak during . On suppressiv e therapy with AcyclovirW ill give refill Anemia of 2733 2003 O99.019 PreHgb 10.3 g/dL, Post Hgb 9.7 g/dLNot taking the ironWill obtain repeat CBC Pre-eclampsia 709669263 O14.10 Admitted from 02/28-11-2 3, had Mg03/09 - went back to ER for high blood pressureSt arted on Nifedipine 30 mgWill increase to 60mgFollow up in 1 week for BP check [id number] MD Courtney REYNOLDS [facility] (RENT AND HOUSING INVESTIGATOR) [address] [place] [phone] 03/26/2024 11:16:45 03/28/2024 15:40:53 Contraception care management 696709820 Z30.9 5 weeks patient. Presenting for placement of Nexplanon, has had 2 prior with no issues placed Pre-eclampsia 447549653 O14.94 Patient with history of preeclamps ia still endorsing severe migraines similar to the type that took her to the hospital, blood pressure in office today significan t for initial diastolic of 100 repeat was WNL however will order preeclamps ia labs at this time and advised patient to continue nifedipine 60 mg ER, RTC in 1 week [id number] MD Courtney Underwood (RENT AND HOUSING INVESTIGATOR) [address] [place] [phone] 05/07/2024 12:04:58 05/16/2024 16:14:14 Vaginal discharge 443098307 N89.8 Will check Nuswab. Treat as indicated. [id number] MD Courtney REYNOLDS (RENT AND HOUSING INVESTIGATOR) [address] [place] [phone] 08/27/2024 14:40:54 09/11/2024 08:58:38 Essential hypertension 32738946 I10 BP stable todayWill refill HCTZ 12.5mg daily and set up to see PCP Herpes simplex 11365403 B00.9 Needs refill on prophylact ic acyclovir Abnormal u terine bleeding 4872452704 9100 N93.9 Likely related to nexplanonW ill do 10 day burst of norethrind colten 5mgIf no improvemen t, she is to let us know and we may need a longer course Tooth disorder 431098353 K08.9 Upcoming dentist appointmen tNo abscess or infection notedWill give chlorhedid ine mouthwash Vaginal irritation 22037 6004 N89.8 Obtain nuswab Folliculitis 60531215 L7 3.9 No acute bacterial infection or abscess to drainDiscu ssed conservati ve measures including sitz baths and warm compressED precaution s discussed Health Concerns Section Related Observation LastModified by Organization Detai ls LastModified Time None Recorded Concern Status LastModified by Organization Details LastModified Time None Recorded Advance Directives Directive N: Payers Insurance Date Sequence Insurance Name Policy Number Policy Barton Covered Member ID Barton Member ID Guarantor Name 02/10/2022 1 UNSPECIFIED CORAZON T PAYOR Elizabeth Jain 08/29/2024 2 [place] (MEDICARE REPLACEMENT/ADVANT AGE) Elizabeth Jain [id number] Elizabeth Jain 09/11/[address] [facility] ON OR AFTER 04/11/2020 - DUAL ELIGIBLE (MEDICARE REPLACEMENT/ADVANT AGE - HMO) Elizabeth Jain [id number] Elizabeth Jain 08/29/[address] [facility] ON OR AFTER 10/09/20 (MEDICAID REPLACEMENT - HMO) [id number] Elizabeth Jain [id number] Elizabeth Jain 08/29/2024 [place] N - [facility] Elizabeth Jain [id number] Elizabeth Jain 08/29/2024 1 [place] [facility] Elizabeth Jain [id number] Elizabeth Jain 08/29/2024 1 [place] Elizabeth Jain [id number] Elizabeth Jain 08/29/2024 3 [place] - [facility] Elizabeth Jain [id number] Elizabeth Jain 08/29/2024 2 [place] WHEN MEDICARE OR MEDICARE REPLACEMENT PRIMARY) Elizabeth Jain [id number] Elizabeth Jain 03/16/2021 2 UNSPECIFIED CORAZON T PAYOR Elizabeth Jain 08/29/[address] [facility] ON OR AFTER 04/11/2020 - DUAL ELIGIBLE (MEDICARE REPLACEMENT/ADVANT AGE - HMO) [id number] Elizabeth Jain [id number] Elizabeth Jain Notes Date Note Type Note Provider Name and Address Organization Details Recorded Time 4 text/html Elizabeth is a 32 y/o presenting at 39.0 weeks dated by US; here for routine OB exam. Initial US performed 1st trimester. Preg complicated by: prior 2.6 ovarian cyst s/p surgical intervention, Hx of gHTN, anemia of , oral HSV, resolved constipation, GERD, BMI >40 . She has no significant concerns today and reports normal antepartum symptoms of . She endorses good movement. She denies vaginal bleeding, vaginal discharge, loss of fluid, or contractions. She has not had a visit to ED or Triage since last appointment. Pre- Weight: 245 lbs, BMI: elevatedPre-Eclampsia Risk: posContinuity Resident: MARAKettering Healthgnancy Risk Level: moderate Problem List:-Hx of 2.6cm ovarian cyst in previous needing surgical intervention-Hx of gestational HTN-penicillin allergy (GBS positive)-Obesity-Anemia of Bhnrxtqrc-Qitdoygwkjqs-Y ral Herpes- GERD INITIAL LABS Date: obtained 07/18/2023lood Type: ORh Type: positiveAntibody Screen: negativeCBC: WNLVDRL/RPR: nonreactiveUrine Culture: WNLHBsAg: negativeHepC: nonreactiveHIV: nonreactiveRubella: immuneVaricella: immuneCF: negativeSS: normalUDS: unremarkableDating US: Date07/18/2023LMP: 05/25/2023 ERNESTO: 02/29/2024 Patient is unsure of dating.DUS: Date 08/03/2023 AUA: 11w2d ERNESTO: 02/20/2024 Discrepancy >10daysEDD: 02/20/2024ased on USPap: UTD; cotesting neg 01/20/2022Vaginal Cultures: Yeast: pos;BV: negGC:neg; Chlamydia:neg;Trich: negSequential/QUAD/Mater niT21:neg; consistent with femaleAFP: negAnatomy Scan: SIUP at 19w4d. Cephalic, placenta posterior. FHR 144. 40% for weight. No major malformations seen. 26-28 weeks: Date 11/14/2023GTT: Pass 1 hrCBC: Hct 29.6, Hgb 9.9, MCV 91, PLT 154Urinalysis: negHIV:non-reactiveRPR non-reactiveTdap:given Date: 12/19/23Rhogam: unwarranted 36 weeks: Date 01/23/2024Vaginal Cultures: Yeast: neg;BV: negGC:neg; Chlamydia:neg;Trich: negGBS bacteruria. Resistant to clindamycin. Plan for vancomycin at delivery.Limited US 01/23/2024: SIUP at 36w0d. 54%tile for weight. FHR 150 bpm. ERMIAS WNL. Cephalic. Placenta posterior. Initiate weekly BPP through delivery due to class II obesity Situational Awareness:Support Person(s): FRANCOIS motherDhruvby Name(s):Broadway: negativePHQ9: negative GAD7: negativeACES: 1Resilience: highSDOH:Desired delivering [facility] to participate in group visits: yesPlanning to breastfeed: noCircumcision yesEpidural yesPost- contraception noneOpen to vaccination:Tdap: yesCOVID: yesFlu: yesHome visits ok: no JESSICA HARE MD Attn: Accounting, [place], [address], [facility] 02/23/2024 17:34:07 4 text/html 33yo G5 now P3023 s/p Spontaneous Vaginal Delivery of Full-term AGA Female @ 39.5 wks gestation on 02/18/2024. Complicated by:-Hx of 2.6cm ovarian cyst in previous needing surgical intervention-Hx of gestational HTN-penicillin allergy (GBS positive)-Obesity-Anemia of Faozxurrd-Utlmateewvry-W ral Herpes- GERD Delivery uncomplicatedLacerations : noneEBL: 100 mlPreHgb 10.3 g/dL, Post Hgb 9.7 g/dLBirth DetailsApgars: 8/9Birth weight: 8lb 3 oz Course: complicated by preeclampsia requiring magnesium and currently on nifedipine 30 mgHad episode of transient bradycardia and possible murmur. Echo was obtained which was unremarkable. Thought to be due to the IV labetolol given for HTN. Today, patient is feeling good.Home BPs: 130s / 90s - Bonding: good- Breast: breast feeding is going well- Belly: no pain- Bowels: no issues- Bladder: no issues- Bleeding: no bleeding- Boinking 'sex': no sexual intercourse- Blues (EDPS): negative- Control: wants nexplanon Desiree Nguyen MD Attn: Accounting,[address] [place], [address], [place] [facility] 04/03/2024 12:22:33 4 text/html 33yo G5 now P3023 s/p Spontaneous Vaginal Delivery of Full-term AGA Female @ 39.5 wks gestation on 02/18/2024. 33 who i snow 5 weeks post presenting for insertion of nexplanon, no other concerns or complaints at this time. Complicated by:-Hx of 2.6cm ovarian cyst in previous needing surgical intervention-Hx of gestational HTN-penicillin allergy (GBS positive)-Obesity-Anemia of Anxifoxhh-Fhykcjobwefc-D ral Herpes- GERD- post- Preeclampsia still on nifedipine ER 60mg JESSICA HARE MD Attn: Accounting,[address] [facility], [place], [address], [facility] 03/26/2024 14:36:39 5 text/html 33F presenting with complaints of vaginal discharge for 1 week. Started after her period. It is foul smelling and has some irritation. Denies having any pain. Creamy vaginal discharge. Not currently sexually active.Has had the nexplanon since . Had child 02/18/2024. Believes discharge similar to BV which she had previously. JESSICA HARE MD Attn: Accounting,[address] [facility], [place], [address], [facility] 05/13/2024 18:40:47 5 text/html 33 yo F presents to clinic with multiple complaints AUBHas nexplanon. Has had consistent bleeding for the past month. Has had nexplanon in the past and she has had to be on the patch or given a burst of pills to stop her bleeding.Otherwise she has tolerated the Nexplanon well. Vaginal irritation Patient states that she started using a new soap about a week ago and started having some vaginal irritation and some folliculitis. She has now stopped using that soap and returned to her previous soap that did not cause irritation. She is also having some vaginal discharge associated with the irritation. Hypertension Patient has had multiple ED visits for hypertension since delivery. She is now currently taking hydrochlorothiazide 12.5 mg daily but inconsistently. She does not have a primary care doctor. Poor dentition Patient has also had multiple ED visits for teeth and mouth sore issues. She is set up for extraction in a few weeks. Still having a lot of pain and mouth sores in the lower inner lip. JESSICA HARE MD Attn: Accounting,[address] [facility], [place], [address], [facility] 09/06/2024 19:08:39 OBGyn Episode Ob Episode Information Episode Created Date Number of Fetuses Patient Bloodtype Patient rh Status Prepregnancy Weight lbs Domestic Partner Domestic Partner Phone Father Name Hammer Setter Status 06/29/19 19 1 DELETED Ernesto Calculation Initial Ernesto Date Initial Exam Date Initial Exam Provider Initial Ultrasound Date Last Menstrual Period Date Ultra Sound Weeks Gestation 0 Eighteen To Twenty Week Ernesto Update Ultra Sound Date Fundal Height At Umbil Quickening Date Ultra Sound Latest Weeks Gestation Final Ernesto Confirmed By Final Ernesto Confirmed Date Final Ernesto Date Ultra Sound Latest Days Gestation 0 0 Menstrual History Last Menstrual Date Menses Monthly On Bcp Conception Prior Menses Frequency Hcg Plus Date Menarche Onset Age Delivery Information Delivery Date Delivery Type Labor Anesthesia Weeks Gestation Incision Type Labor Labor Length Hrs Delivered By Post Complications Tubal Sterilization Discharge Date Comments 8 Regional- idural 39 Discharge Information Feeding Method Contraceptive Method Maternal HG B and HCT Levels Ob Episode Information Episode Created Date Number of Fetuses Patient Bloodtype Patient rh Status Prepregnancy Weight lbs Domestic Partner Domestic Partner Phone Father Name Hammer Setter Status 06/29/19 19 1 CLOSED Fetus Data First Name Last Name Admitted to NICU Weight (g) Sex Living Outcome Pediatric Complications Fetus ID Race Codes Race Delivery Type , Induced [id number] Ernesto Calculation Initial Ernesto Date Initial Exam Date Initial Exam Provider Initial Ultrasound Date Last Menstrual Period Date Ultra Sound Weeks Gestation 0 Eighteen To Twenty Week Ernesto Update Ultra Sound Date Fundal Height At Umbil Quickening Date Ultra Sound Latest Weeks Gestation Final Ernesto Confirmed By Final Ernesto Confirmed Date Final Ernesto Date Ultra Sound Latest Days Gestation 0 0 Menstrual History Last Menstrual Date Menses Monthly On Bcp Conception Prior Menses Frequency Hcg Plus Date Menarche Onset Age Delivery Information Delivery Date Delivery Type Labor Anesthesia Weeks Gestation Incision Type Labor Labor Length Hrs Delivered By Post Complications Tubal Sterilization Discharge Date Comments 9 8 Discharge Information Feeding Method Contraceptive Method Maternal HG B and HCT Levels Ob Episode Information Episode Created Date Number of Fetuses Patient Bloodtype Patient rh Status Prepregnancy Weight lbs Domestic Partner Domestic Partner Phone Father Name Hammer Setter Status 06/29/19 19 1 CLOSED Fetus Data First Name Last Name Admitted to NICU Weight (g) Sex Living Outcome Pediatric Complications Fetus ID Race Codes Race Delivery Type 2721.55 2 Full Term [id number] Ernesto Calculation Initial Ernesto Date Initial Exam Date Initial Exam Provider Initial Ultrasound Date Last Menstrual Period Date Ultra Sound Weeks Gestation 0 Eighteen To Twenty Week Ernesto Update Ultra Sound Date Fundal Height At Umbil Quickening Date Ultra Sound Latest Weeks Gestation Final Ernesto Confirmed By Final Ernesto Confirmed Date Final Ernesto Date Ultra Sound Latest Days Gestation 0 0 Menstrual History Last Menstrual Date Menses Monthly On Bcp Conception Prior Menses Frequency Hcg Plus Date Menarche Onset Age Delivery Information Delivery Date Delivery Type Labor Anesthesia Weeks Gestation Incision Type Labor Labor Length Hrs Delivered By Post Complications Tubal Sterilization Discharge Date Comments 8 39 Discharge Information Feeding Method Contraceptive Method Maternal HG B and HCT Levels Ob Episode Information Episode Created Date Number of Fetuses Patient Bloodtype Patient rh Status Prepregnancy Weight lbs Domestic Partner Domestic Partner Phone Father Name Hammer Setter Status 07/18/19 24 1 O Positive CLOSED Fetus Data First Name Last Name Admitted to NICU Weight (g) Sex Living Outcome Pediatric Complications Fetus ID Race Codes Race Delivery Type edith h roberto r false 3713.78 45 F true Full Term none [id number] 2057- Afric an Ameri can Vaginal Problems Problem Notes NOT , yes to ci rc if boy; Continuity Resident: MARA Problem Name Start Date End Date Resolution Snomed Code Not e Acute cystitis in , antepartum 11/20/2023 [id number] Macrob id sent on 11/19 Vaginal discharge 10/27/2023 [id number] Gastroesophageal reflux disease without esophagitis 02/07/2024 [id number] Routine care 10/27/2023 [id number] Hemorrhoids 10/27/2023 25685252 Yellow vaginal discharge 12/19/2023 [id number] Maternal obesity complicating , childbirth and the puerperium, antepartum 11/14/2023 [id number] Group B Streptococcus carrier 01/27/2024 [id number] GBS bacteruria . Resistant to clindamycin. Plan for vancomycin at delivery. Proteinuria 01/19/2024 [id number] Neg Pre E labs on 01/23/2024 Past history of gestational hypertension 07/19/2023 547293638 Constipation 09/12/2023 01928499 Cyst of left ovary 09/12/2023 [id number] 2.6 cm Cyst of left ovary on US on 08/03/2023 Herpes simplex 07/19/2023 31483064 On p rophylactic valacyclovir Anemia of 08/22/2023 88347550 Most recent CBC shows Hgb of 9.9 and Hct of 29.6. Patient is currently prescribed iron supplements, encouraged to continue to take them. Repeat CBC 01/22 Hb 9.9 Ernesto Calculation Initial Ernesto Date Initial Exam Date Initial Exam Provider Initial Ultrasound Date Last Menstrual Period Date Ultra Sound Weeks Gestation 02/20/2024 07/18/2023 [email or web address] 08/03/2023 05/25/2023 11 Eighteen To Twenty Week Ernesto Update Ultra Sound Date Fundal Height At Umbil Quickening Date Ultra Sound Latest Weeks Gestation Final Ernesto Confirmed By Final Ernesto Confirmed Date Final Ernesto Date Ultra Sound Latest Days Gestation 08/03/19 24 11 02/20/20 24 2 Pre- Flowsheet Flowsheet Date 07/18/2023 Hudson Score Blood Edema Fundus Height Fundus Units Glucose Ketones Leukocytes Nitrite Labor Signs Protein Cervic Dilation Cervic Effacement Cervic Station neg none none negative neg Type Weight in lbs Pre/Post Dialysis Refused With clothes 245.576988692631 BP Diastolic BP Location Tested BP Systolic BP Type 74 110 sitting Fetus Heart Rate Present Fetus Movement Comments 32 y/o presenting @ 8w3d dated by LMP with ERNESTO of 02/24/2024; Not 100% sure of LMP. complicated by Hx of ovarian cyst in previous needing surgical intervention, Hx of gestational HTN, GBS positive in previous , Obesity and hx of x2. Initial labs and US ordered today. Baseline PreE labs obtained today. Having left sided pain, feels like previous cyst pain, low threshold for MFM transfer. Refill unisom and B6. Aspirin at 12 weeks. Follow up in 4 weeks Flowsheet Date 08/08/2023 Hudson Score Blood Edema Fundus Height Fundus Units Glucose Ketones Leukocytes Nitrite Labor Signs Protein Cervic Dilation Cervic Effacement Cervic Station neg none none negative neg Type Weight in lbs Pre/Post Dialysis Refused With clothes 245.316099920733 BP Diastolic BP Location Tested BP Systolic BP Type 78 112 sitting Fetus Heart Rate Present Fetus Movement Comments - 32 y/o presenting @11 .3 ERNESTO 02/24/24 based on LMP here for routine care- no acute concerns or complaints this visit - given anticipatory guidance, to continue PNV- follow up in 4 weeks Flowsheet Date 08/10/2023 Hudson Score Blood Edema Fundus Height Fundus Units Glucose Ketones Leukocytes Nitrite Labor Signs Protein Cervic Dilation Cervic Effacement Cervic Station Type Weight in lbs Pre/Post Dialysis Refused BP Diastolic BP Location Tested BP Systolic BP Type Fetus Heart Rate Present Fetus Movement Comments Flowsheet Date 09/12/2023 Hudson Score Blood Edema Fundus Height Fundus Units Glucose Ketones Leukocytes Nitrite Labor Signs Protein Cervic Dilation Cervic Effacement Cervic Station neg none none negative neg Type Weight in lbs Pre/Post Dialysis Refused With clothes 248.820449532434 BP Diastolic BP Location Tested BP Systolic BP Type 80 116 sitting Fetus Heart Rate Present A 142 Present Fetus Movement Comments 32 y/o presenting @ 17.0 dated by 1st trimester US with ERNESTO of 02/20/2024; complicated by Hx of ovarian cyst in previous needing surgical intervention, Hx of gestational HTN, GBS positive in previous , Obesity, anemia, constipation, oral herpes, 2.6 cm ovarian cyst. - Anticipatory guidance given - Start Aspirin (obesity, AA and socioeconomic status) - Start iron supplements for anemia - Obtain baseline PreE labs - Order Anatomy US and AFP today - Follow up in 4 weeks. Flowsheet Date 10/17/2023 Hudson Score Blood Edema Fundus Height Fundus Units Glucose Ketones Leukocytes Nitrite Labor Signs Protein Cervic Dilation Cervic Effacement Cervic Station neg none 22 cm none negative neg Type Weight in lbs Pre/Post Dialysis Refused With clothes 247.088464089317 BP Diastolic BP Location Tested BP Systolic BP Type 72 118 sitting Fetus Heart Rate Present A 146 Present Fetus Movement A Yes Comments Elizabeth is a 32 y/o p resenting @ 22.0 dated by US; here for routine OB exam. Preg complicated by: hx of ovarian cyst in previous needing surgical intervention, hx of gestational HTN, GBS positive in previous , obesity, hx of x2, anemia, constipation, oral herpes, 2.6 cm ovarian cyst. She has no significant concerns today and reports normal antepartum symptoms of . She endorses good movement. She denies vaginal bleeding, loss of fluid, or contractions. She has not had a visit to ED or Triage since last appointment.OB plan: 32 y/o ; ERNESTO 02/24/2024 based on US - Anticipatory guidance given- Cont Aspirin (obesity and socioeconomic status)- Continue iron supplements Flowsheet Date 11/14/2023 Hudson Score Blood Edema Fundus Height Fundus Units Glucose Ketones Leukocytes Nitrite Labor Signs Protein Cervic Dilation Cervic Effacement Cervic Station neg none 26 cm none negative none neg Type Weight in lbs Pre/Post Dialysis Refused With clothes 249.804762125629 BP Diastolic BP Location Tested BP Systolic BP Type 68 R arm 116 sitting Fetus Heart Rate Present A 135 Present Fetus Movement A Yes Comments 32 y/o presenting @ 26.0 dated by US; here for routine OB exam. Preg complicated by: hx of ovarian cyst in previous needing surgical intervention, hx of gestational HTN, GBS positive in previous , obesity, anemia, constipation, oral herpes, 2.6 cm ovarian cyst. Here for routine OB exam.- Anticipatory guidance given- Cont Aspirin (obesity and socioeconomic status)- Continue iron supplements - GTT, HIV, CBC ordered today- tdap ordered today, will come back for nurse visit Flowsheet Date 12/19/2023 Hudson Score Blood Edema Fundus Height Fundus Units Glucose Ketones Leukocytes Nitrite Labor Signs Protein Cervic Dilation Cervic Effacement Cervic Station none 31 cm none Type Weight in lbs Pre/Post Dialysis Refused With clothes 251.760165539199 BP Diastolic BP Location Tested BP Systolic BP Type 72 R arm 94 sitting Fetus Heart Rate Present A 148 Fetus Movement A Yes Comments Elizabeth is a 32 y/o p resenting at 31.0 weeks dated by US; here for routine OB exam. Preg complicated by: hx of ovarian cyst in previous needing surgical intervention, hx of gestational HTN, GBS positive in previous , obesity, anemia, constipation, oral herpes. Today, she reports concern for possible herpes breakout due to experiencing some yellow vaginal discharge for past few days. Patient denies any vaginal bleeding or sudden gush of fluid. She has not recently visited OB triage or the emergency room. Patient continues to report good movement. No other concerns today.-Nuswab obtained today for yellow discharge-Anticipatory guidance provided-Patient instructed to follow up in 2 weeks, obtain urine per usual. Urine results not entered into chart this visit-Continue ASA and iron supplements as prescribed Flowsheet Date 01/02/2024 Hudson Score Blood Edema Fundus Height Fundus Units Glucose Ketones Leukocytes Nitrite Labor Signs Protein Cervic Dilation Cervic Effacement Cervic Station neg none 34 cm none negative none 1+ Type Weight in lbs Pre/Post Dialysis Refused With clothes 258.900528557180 BP Diastolic BP Location Tested BP Systolic BP Type 72 R arm 120 sitting Fetus Heart Rate Present A 140 Present Fetus Movement A Yes Comments Elizabeth is a 32 y/o p resenting at 33.0 weeks dated by US; here for routine OB exam. Problem List: - Hx of gestational HTN - GBS positive in previous (has true penicillin allergy) - Obesity - Anemia of - Constipation - Oral Herpes - Anticipatory guidance given - continue daily aspirin- continue daily iron supplements - FH and FHR reassuring-Patient is to RTC in 2 weeks Flowsheet Date 01/16/2024 Hudson Score Blood Edema Fundus Height Fundus Units Glucose Ketones Leukocytes Nitrite Labor Signs Protein Cervic Dilation Cervic Effacement Cervic Station trace none 35 cm none negative none 1+ Type Weight in lbs Pre/Post Dialysis Refused With clothes 254.869940891269 BP Diastolic BP Location Tested BP Systolic BP Type 68 R arm 122 sitting Fetus Heart Rate Present A 147 Present Fetus Movement A Yes Comments Elizabeth is a 32 y/o p resenting at 35.0 weeks dated by US; here for routine OB exam. Problem List: - Hx of gestational HTN - GBS positive in previous (has true penicillin allergy) - Obesity - Anemia of - Constipation - Oral Herpes Plan:- Anticipatory guidance given - continue daily PNV and aspirin- continue daily iron supplements. Obtain CBC today- US scheduled for 01/22- protienuria, normal BP, obtain PreE labs- Patient is to RTC in 1 week Flowsheet Date 01/23/2024 Hudson Score Blood Edema Fundus Height Fundus Units Glucose Ketones Leukocytes Nitrite Labor Signs Protein Cervic Dilation Cervic Effacement Cervic Station neg none 36 cm none negative none neg Type Weight in lbs Pre/Post Dialysis Refused With clothes 259.633510319996 BP Diastolic BP Location Tested BP Systolic BP Type 74 R arm 120 sitting Fetus Heart Rate Present A 154 Fetus Movement A Yes Comments Elizabeth is a 32 y/o p resenting at 36.0 weeks dated by US; here for routine OB exam. Problem List: - Hx of gestational HTN - GBS positive (has true penicillin allergy) - Obesity - Anemia of - Constipation - Oral Herpes (on acyclovir) Plan:- Anticipatory guidance given - continue daily PNV and aspirin- continue daily iron supplements. Obtain CBC today- GBS bacteruria. Will obtain swab for susceptibilities due to penicillin allergy- proteinuria, normal BP, obtain PreE labs- Patient is to RTC in 1 week Flowsheet Date 01/30/2024 Hudson Score Blood Edema Fundus Height Fundus Units Glucose Ketones Leukocytes Nitrite Labor Signs Protein Cervic Dilation Cervic Effacement Cervic Station neg none 38 cm none negative Backpain neg Type Weight in lbs Pre/Post Dialysis Refused With clothes 260.014565471745 BP Diastolic BP Location Tested BP Systolic BP Type 72 L arm 126 sitting Fetus Heart Rate Present A 148 Present Fetus Movement A Yes Comments Flowsheet Date 02/06/2024 Hudson Score Blood Edema Fundus Height Fundus Units Glucose Ketones Leukocytes Nitrite Labor Signs Protein Cervic Dilation Cervic Effacement Cervic Station trace none 39 cm none negative Backpain neg Type Weight in lbs Pre/Post Dialysis Refused With clothes 262.182167623829 BP Diastolic BP Location Tested BP Systolic BP Type 74 L arm 112 sitting Fetus Heart Rate Present A 130 Present Fetus Movement A Yes Comments Elizabeth is a 32 y/o p resenting at 38.0 weeks dated by 1st trimester US; here for routine OB exam. Problem List: - Hx of gestational HTN - GBS positive (has true penicillin allergy) - Obesity - Anemia of - Constipation - Oral Herpes (on acyclovir)- GERD Plan:- Anticipatory guidance given - continue daily PNV and aspirin- continue daily iron supplements. - GBS bacteruria. Treat w/ Vancomycin- PreE labs neg on 01/23/2024- Weekly BPP/NST for obesity - No cervical check today, will send to [facility] to evaluate for active labor- most likely worsening GERD, discussed Tums and famotidine- Patient is to RTC in 1 week Flowsheet Date 02/13/2024 Hudson Score Blood Edema Fundus Height Fundus Units Glucose Ketones Leukocytes Nitrite Labor Signs Protein Cervic Dilation Cervic Effacement Cervic Station neg none 40 cm none negative none neg Type Weight in lbs Pre/Post Dialysis Refused With clothes 264.359026395313 BP Diastolic BP Location Tested BP Systolic BP Type 70 L arm 109 sitting Fetus Heart Rate Present A 164 Present Fetus Movement A Yes Comments Elizabeth is a 32 y/o p resenting at 39.0 weeks dated by US; here for routine OB exam. Initial US performed 1st trimester. Preg complicated by: prior 2.6 ovarian cyst s/p surgical intervention, Hx of gHTN, anemia of , oral HSV, resolved constipation, GERD, BMI >40 . She has no significant concerns today and reports normal antepartum symptoms of . She endorses good movement. She denies vaginal bleeding, vaginal discharge, loss of fluid, or contractions. She has not had a visit to ED or Triage since last appointment.Pre- Weight: 245 lbs, BMI: elevated Pre-Eclampsia Risk: pos Continuity Resident: MARA Risk Level: moderateProblem List: -Hx of 2.6cm ovarian cyst in previous needing surgical intervention -Hx of gestational HTN -penicillin allergy (GBS positive)-Obesity -Anemia of -Constipation -Oral Herpes- GERD- Anticipatory guidance given - continue daily PNV and aspirin- continue daily iron supplements. - For GBS ppx, Tx w/ Vancomycin- Continue weekly BPP/NST- f/u urine Cx- f/u 1 wk Flowsheet Date 03/19/2024 Husdon Score Blood Edema Fundus Height Fundus Units Glucose Ketones Leukocytes Nitrite Labor Signs Protein Cervic Dilation Cervic Effacement Cervic Station Type Weight in lbs Pre/Post Dialysis Refused With clothes 246.594405052147 BP Diastolic BP Location Tested BP Systolic BP Type 94 R arm 132 sitting Fetus Heart Rate Present Fetus Movement Comments Menstrual History Last Menstrual Date Menses Monthly On Bcp Conception Prior Menses Frequency Hcg Plus Date Menarche Onset Age 0205/25/2023 true false 7 11 Genetic Screening And Infection History Question Response Note Patient's Age Will Be 35 Yea rs Or Older At Estimated Date of Delivery false Congenital Heart Defect false Down Syndrome false Sickle Cell Disease Or Trait () false Maternal Metabolic Disorder (eg, Type 1 Diabetes , PKU) false Patient Or Baby's Father Had A Child With Defects Not Listed Above false Recurrent Loss, Or A Stillbirth false Medications (including Suppl ements, Vitamins, Herbs, OTC Drugs), Illicit/Recreational Drugs, Alcohol true Any Other Genetic History false Live With Someone With TB Or Exposed To TB false Patient Or Partner Has History Of Genital Herpes true Rash Or Viral Illness Since Last Menstrual Perio d false History Of STD, Gonorrhea, Chlamydia, HPV, Syphi lis true chlamydia Other Infection History false History of HIV false History of Hepatitis false Prior GBS-infected child false Delivery Information Delivery Date Delivery Type Labor Anesthesia Weeks Gestation Incision Type Labor Labor Length Hrs Delivered By Post Complications Tubal Sterilization Discharge Date Comments 4 Sponta neous Regional-Ep idural 39.5 false 5 Antonia Dasilva MD Hypertension 02/20/2024 she state she went back to [facility] for preclamps ia. Discharge Information Feeding Method Contraceptive Method Maternal HG B and HCT Levels Combination Ob Episode Information Episode Created Date Number of Fetuses Patient Bloodtype Patient rh Status Prepregnancy Weight lbs Domestic Partner Domestic Partner Phone Father Name Hammer Setter Status 09/22/19 16 1 DELETED Ernesto Calculation Initial Ernesto Date Initial Exam Date Initial Exam Provider Initial Ultrasound Date Last Menstrual Period Date Ultra Sound Weeks Gestation 0 Eighteen To Twenty Week Ernesto Update Ultra Sound Date Fundal Height At Umbil Quickening Date Ultra Sound Latest Weeks Gestation Final Ernesto Confirmed By Final Ernesto Confirmed Date Final Ernesto Date Ultra Sound Latest Days Gestation 0 0 Menstrual History Last Menstrual Date Menses Monthly On Bcp Conception Prior Menses Frequency Hcg Plus Date Menarche Onset Age Delivery Information Delivery Date Delivery Type Labor Anesthesia Weeks Gestation Incision Type Labor Labor Length Hrs Delivered By Post Complications Tubal Sterilization Discharge Date Comments 8 Regional-Ep idural 40 false 12 Emiyha Discharge Information Feeding Method Contraceptive Method Maternal HG B and HCT Levels Ob Episode Information Episode Created Date Number of Fetuses Patient Bloodtype Patient rh Status Prepregnancy Weight lbs Domestic Partner Domestic Partner Phone Father Name Hammer Setter Status 06/11/19 17 1 O Positive 189 Papito Garcia [facility] CLOSED Fetus Data First Name Last Name Admitted to NICU Weight (g) Sex Living Outcome Pediatric Complications Fetus ID Race Codes Race Delivery Type [id number] Ernesto Calculation Initial Ernesto Date Initial Exam Date Initial Exam Provider Initial Ultrasound Date Last Menstrual Period Date Ultra Sound Weeks Gestation 01/24/2017 06/10/2016 adolfo 04/19/2016 0 Eighteen To Twenty Week Ernesto Update Ultra Sound Date Fundal Height At Umbil Quickening Date Ultra Sound Latest Weeks Gestation Final Ernesto Confirmed By Final Ernesto Confirmed Date Final Ernesto Date Ultra Sound Latest Days Gestation 0 01/25/20 17 0 Pre-sonia Flowsheet Flowsheet Date 06/10/2016 Hudson Score Blood Edema Fundus Height Fundus Units Glucose Ketones Leukocytes Nitrite Labor Signs Protein Cervic Dilation Cervic Effacement Cervic Station neg none 8 cm none trace none 1+ 0cm 0% -4 Type Weight in lbs Pre/Post Dialysis Refused 189.306985231213 BP Diastolic BP Location Tested BP Systolic BP Type Fetus Heart Rate Present Fetus Movement A No Comments SHE WAS DX WITH PID AND TOA on 05/31/16 was admitted and treated with IV antibiotics and now she is on azithromycin. she say her pelvic pain improved. still c/o yeast infection - Flowsheet Date 06/25/2016 Hudson Score Blood Edema Fundus Height Fundus Units Glucose Ketones Leukocytes Nitrite Labor Signs Protein Cervic Dilation Cervic Effacement Cervic Station Type Weight in lbs Pre/Post Dialysis Refused BP Diastolic BP Location Tested BP Systolic BP Type Fetus Heart Rate Present Fetus Movement Comments Flowsheet Date 08/16/2016 Hudson Score Blood Edema Fundus Height Fundus Units Glucose Ketones Leukocytes Nitrite Labor Signs Protein Cervic Dilation Cervic Effacement Cervic Station neg none 17 wks none trace none trace Type Weight in lbs Pre/Post Dialysis Refused 192.472702017921 BP Diastolic BP Location Tested BP Systolic BP Type 78 110 sitting Fetus Heart Rate Present A 153 Present Fetus Movement Comments Flowsheet Date 10/13/2016 Hudson Score Blood Edema Fundus Height Fundus Units Glucose Ketones Leukocytes Nitrite Labor Signs Protein Cervic Dilation Cervic Effacement Cervic Station Type Weight in lbs Pre/Post Dialysis Refused 195.596242924844 BP Diastolic BP Location Tested BP Systolic BP Type 62 106 Fetus Heart Rate Present Fetus Movement Comments Menstrual History Last Menstrual Date Menses Monthly On Bcp Conception Prior Menses Frequency Hcg Plus Date Menarche Onset Age 0104/19/2016 false true 30 7 13 Genetic Screening And Infection History Question Response Note Patient's Age Will Be 35 Yea rs Or Older At Estimated Date of Delivery false Thalassemia (Grenadian, St Helenian, Mediterranean, Or Background): MCV < 80 false Neural Tube Defect (Meningom yelocele, Spina Bifida, Or Anencephaly) false Congenital Heart Defect false Down Syndrome false Travis-Sachs (eg, Jainism, Cajun , Comoran-Armenian) false Jacque Disease false Sickle Cell Disease Or Trait () false Hemophilia Or Other Blood Disorders false Muscular Dystrophy false Cystic Fibrosis false Portage's Chorea false Mental Retardation/Autism false If Yes, Was Person Tested Fo r Fragile X? false Other Inherited Genetic Or C hromosomal Disorder false Maternal Metabolic Disorder (eg, Type 1 Diabetes, PKU) true FOB Patient Or Baby's Father Had A Child With Defects Not Listed Above false Recurrent Loss, Or A Stillbirth false Medications (including Suppl ements, Vitamins, Herbs, OTC Drugs), Illicit/Recreational Drugs, Alcohol true vitamin If Yes, Agent(s) And Strength/Dosage false Any Other Genetic History false Live With Someone With TB Or Exposed To TB false Patient Or Partner Has Histo ry Of Genital Herpes false Rash Or Viral Illness Since Last Menstrual Period false History Of STD, Gonorrhea, C hlamydia, HPV, Syphilis true CT 2008 PID, TOA WITH THIS P REGNANCY Other Infection History false Plans and Education First Trimester Discussed Date Discussion Item Discussion Note Discuss ed By 06/10/2016 Anticipated course of care uyjosh 06/10/2016 Alcohol uyjulio 06/10/2016 Intimate partner violence uyyzelalem 06/10/2016 Environmental/work hazards s chiyjosh 06/10/2016 Screening for aneuploidy u yyzelalem 06/10/2016 Nutrition counseling ; special diet; dietary precautions (mercury, listeriosis) uyjulio 06/10/2016 [facility] HIV and other routine tests [facility] 06/10/2016 Risk factors identif ied by history uyjosh 06/10/2016 Weight gain counseling padmini masterson 06/10/2016 Exercise [facility] 06/10/2016 Teratogens [facility] 06/10/2016 Use of any medicatio ns (including supplements, vitamins, herbs, or OTC drugs) [facility] 06/10/2016 [facility] 06/10/2016 Sexual activity [facility] 06/10/2016 Tobacco/smoking cess ation counseling (ask, advise, assess, assist, and arrange) [facility] 06/10/2016 Illicit/recreational drugs (+) MJ s [facility] 06/10/2016 Dental care [facility] 06/10/2016 Travel [facility] 06/10/2016 Seat belt use [facility] 06/10/2016 Indications for ultrasonography [facility] 06/10/2016 Avoidance of saunas or hot tubs [facility] 06/10/2016 Toxoplasmosis precautions (cats/raw meat) [facility] Second Trimester Discussed Date Discussion Item Discussion Note Discuss ed By 06/25/2016 [email or web address] anning/tubal sterilization Nexplanon or patch [place] [address] Third Trimester Discussed Date Discussion Item Discussion Note Discuss ed By 06/25/2016 Anesthesia plans Epidural [email or web address] 06/25/2016 Circumcision Yes [place] [address] 06/25/2016 [email or web address] 06/25/2016 depression No hx [facility] tt27 Delivery Information Delivery Date Delivery Type Labor Anesthesia Weeks Gestation Incision Type Labor Labor Length Hrs Delivered By Post Complications Tubal Sterilization Discharge Date Comments 7 18.3 Miscarry false Discharge Information Feeding Method Contraceptive Method Maternal HG B and HCT Levels Ob Episode Information Episode Created Date Number of Fetuses Patient Bloodtype Patient rh Status Prepregnancy Weight lbs Domestic Partner Domestic Partner Phone Father Name Hammer Setter Status 05/10/19 18 1 O Positive 190 CLOSED Fetus Data First Name Last Name Admitted to NICU Weight (g) Sex Living Outcome Pediatric Complications Fetus ID Race Codes Race Delivery Type BabyLittle Jain false 2976.69 75 F false Full Term [id number] 4-5 Black or Afric an Ameri can Vaginal Problems Problem Notes Problem Name Start Date End Date Resolution Snomed Code Not e Gallstone 05/10/2017 [id number] Ernesto Calculation Initial Ernesto Date Initial Exam Date Initial Exam Provider Initial Ultrasound Date Last Menstrual Period Date Ultra Sound Weeks Gestation 12/19/2017 05/10/2017 [email or web address] 03/14/2017 0 Eighteen To Twenty Week Ernesto Update Ultra Sound Date Fundal Height At Umbil Quickening Date Ultra Sound Latest Weeks Gestation Final Ernesto Confirmed By Final Ernesto Confirmed Date Final Ernesto Date Ultra Sound Latest Days Gestation 0 12/20/19 18 0 Pre-sonia Flowsheet Flowsheet Date 05/10/2017 Hudson Score Blood Edema Fundus Height Fundus Units Glucose Ketones Leukocytes Nitrite Labor Signs Protein Cervic Dilation Cervic Effacement Cervic Station neg none none negative none neg Type Weight in lbs Pre/Post Dialysis Refused 196.626678726727 BP Diastolic BP Location Tested BP Systolic BP Type 80 110 sitting Fetus Heart Rate Present Fetus Movement Comments Flowsheet Date 06/28/2018 Hudson Score Blood Edema Fundus Height Fundus Units Glucose Ketones Leukocytes Nitrite Labor Signs Protein Cervic Dilation Cervic Effacement Cervic Station Type Weight in lbs Pre/Post Dialysis Refused Weight 235.722360480432 BP Diastolic BP Location Tested BP Systolic BP Type 79 110 sitting Fetus Heart Rate Present Fetus Movement Comments Menstrual History Last Menstrual Date Menses Monthly On Bcp Conception Prior Menses Frequency Hcg Plus Date Menarche Onset Age 1203/14/2017 true 30 12 Genetic Screening And Infection History Question Response Note Patient's Age Will Be 35 Years Or Older At Estim ated Date of Delivery false Thalassemia (Grenadian, St Helenian, Mediterranean, Or Background): MCV < 80 false Neural Tube Defect (Meningomyelocele, Spina Bifi da, Or Anencephaly) false Congenital Heart Defect false Down Syndrome false Travis-Sachs (eg, Jainism, Cajun, Comoran-Armenian) f alse Jacque Disease false Sickle Cell Disease Or Trait () false Hemophilia Or Other Blood Disorders false Muscular Dystrophy false Cystic Fibrosis false Portage's Chorea false Mental Retardation/Autism false If Yes, Was Person Tested For Fragile X? false Other Inherited Genetic Or Chromosomal Disorder false Maternal Metabolic Disorder (eg, Type 1 Diabetes , PKU) false Patient Or Baby's Father Had A Child With Defects Not Listed Above false Recurrent Loss, Or A Stillbirth false Medications (including Suppl ements, Vitamins, Herbs, OTC Drugs), Illicit/Recreational Drugs, Alcohol true pnv If Yes, Agent(s) And Strength/Dosage false Any Other Genetic History false Live With Someone With TB Or Exposed To TB false Patient Or Partner Has History Of Genital Herpes false Rash Or Viral Illness Since Last Menstrual Perio d false History Of STD, Gonorrhea, Chlamydia, HPV, Syphi lis false Other Infection History false Plans and Education First Trimester Discussed Date Discussion Item Discussion Note Discuss ed By 05/10/2017 Anticipated course of care [facility] 05/10/2017 Alcohol [facility] 05/10/2017 Intimate partner violence [facility]05/10/2017 Environmental/work hazards s 05/10/2017 Screening for aneuploidy [facility]05/10/2017 Nutrition counseling ; special diet; dietary precautions (mercury, listeriosis) [facility] 05/10/2017 Childbirth classes/hospital facilities [facility] 05/10/2017 HIV and other routine tests [facility] 05/10/2017 Risk factors identif ied by history [facility] 05/10/2017 Weight gain counseling [facility] 05/10/2017 Exercise [facility] 05/10/2017 Teratogens [facility] 05/10/2017 Use of any medicatio ns (including supplements, vitamins, herbs, or OTC drugs) [facility] 05/10/2017 [facility] 05/10/2017 Sexual activity [facility] 05/10/2017 Tobacco/smoking cess ation counseling (ask, advise, assess, assist, and arrange) [facility] 05/10/2017 Illicit/recreational drugs s 05/10/2017 Dental care [facility] 05/10/2017 Travel [facility] 05/10/2017 Seat belt use [facility] 05/10/2017 Indications for ultrasonography [facility] 05/10/2017 Avoidance of saunas or hot tubs [facility] 05/10/2017 Toxoplasmosis precautions (cats/raw meat) [facility] Second Trimester Discussed Date Discussion Item Discussion Note Discuss ed By 05/10/2017 Abnormal lab values [facility] Third Trimester Discussed Date Discussion Item Discussion Note Discuss ed By Delivery Information Delivery Date Delivery Type Labor Anesthesia Weeks Gestation Incision Type Labor Labor Length Hrs Delivered By Post Complications Tubal Sterilization Discharge Date Comments 8 Sp[facility] ne[place] [facility]-Ep idural [address] Pickard None 12/14/2017 Discharge Information Feeding Method Contraceptive Method Maternal HG B and HCT Levels Ob Episode Information Episode Created Date Number of Fetuses Patient Bloodtype Patient rh Status Prepregnancy Weight lbs Domestic Partner Domestic Partner Phone Father Name Hammer Setter Status 05/03/19 18 1 190 DELETED Fetus Data First Name Last Name Admitted to NICU Weight (g) Sex Living Outcome Pediatric Complications Fetus ID Race Codes Race Delivery Type [id number] Ernesto Calculation Initial Ernesto Date Initial Exam Date Initial Exam Provider Initial Ultrasound Date Last Menstrual Period Date Ultra Sound Weeks Gestation 12/19/2017 05/03/2017 [email or web address] 03/14/2017 0 Eighteen To Twenty Week Ernesto Update Ultra Sound Date Fundal Height At Umbil Quickening Date Ultra Sound Latest Weeks Gestation Final Ernesto Confirmed By Final Ernesto Confirmed Date Final Ernesto Date Ultra Sound Latest Days Gestation 0 12/20/19 18 0 Menstrual History Last Menstrual Date Menses Monthly On Bcp Conception Prior Menses Frequency Hcg Plus Date Menarche Onset Age 1203/14/2017 Delivery Information Delivery Date Delivery Type Labor Anesthesia Weeks Gestation Incision Type Labor Labor Length Hrs Delivered By Post Complications Tubal Sterilization Discharge Date Comments Discharge Information Feeding Method Contraceptive Method Maternal HG B and HCT Levels
[2024-10-30 14:30] VITALS: BP 121/100; PULSE 75; RESP 16; O2SAT 100
[2024-10-30 15:09] LABS: BEDSIDEPREGUCG Negative (Negative)
[2024-10-30 15:22] LABS: Add Urine Microscopic? YES; Appearance Urine Clear (Clear); Glucose Urine UA Negative (Negative); Leukocyte Esterase Ur 2+ LEU/UL (Negative); Nitrate Urine Negative (Negative); Non Pathogenic Casts 0-2; Specific Grav Ur 1.009 (1.001-1.035)
[2024-10-30 15:27] LABS: Hematocrit 34.3 % (37.0-47.0); Hemoglobin 11.8 g/dL (12.0-15.0); Immature Granulocyte Percent A 0.3 % (0-0.5); Immature Platelet Fraction Pct 10.5 % (0.9-11.2); Lymphocytes Absolute Auto 2.07 K/mm3 (0.9-3.2); Mean Corpuscular HGB Conc 34.4 g/dl (32-36); Mean Corpuscular Hemoglobin 29.0 pg (26-34); Mean Corpuscular Volume 84.3 fl (80-100); Nucleated Red Blood Cells Absolute Auto 0.000 K/mm3 (0.0-0.012); Nucleated Red Blood Cells Perc 0.0 % (0.0-0.2); Platelet Count Result 281 k/mm3 (150-375); Red Blood Count 4.07 M/mm3 (4.2-5.4); White Blood Count 9.5 K/mm3 (4.5-10.0)
[2024-10-30 15:39] LABS: Alanine Aminotransferase 10 U/L (6-35); Albumin Level 3.9 g/dL (3.5-5.1); Alkaline Phosphatase 69 U/L (38-126); Anion Gap 8 mmol/L (4-12); Aspartate Amino Transferase 29 U/L (14-36); Bilirubin,Total 0.6 mg/dL (0.2-1.3); Blood Urea Nitrogen 9 mg/dL (7-17); Calcium 9.1 mg/dL (8.4-10.2); Carbon Dioxide 26 mmol/L (22-30); Chloride 103 mmol/L (98-107); Estimated CRCL calculation 130 ml/min; Estimated Glomerular Filt Rate > 60; Glucose 85 mg/dL (65-110); Potassium 4.3 mmol/L (3.4-5.0); Sodium 137 mmol/L (137-145); Total Protein 8.2 g/dL (6.3-8.2)
--- OUTSIDE RECORDS SUMMARY | 2024-10-30 16:04 | XMS_ITS | Clinical Summary ---
Author Organization [facility] Address [address] [place] [address] Care Team Providers Care Air And Hydronic Balancing Technician Name Role Phone Caren Anderson MD Primary Care Provider + Source Comments [facility],non-owned Affiliates and Associated Physician Practices is amultiple site organization consisting of ambulatory clinics and hospital sitesin [place], [place], [place] and [place]. This disclosure is being madepursuant to the Care Everywhere program and may not contain all information available regarding this patient. 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 Gender Identity Not on file Sexual Orientation [...] CDT 11/15/2017 3:08 PM CDT Moriah Mojica SUPERVISOR [employer] [facility] - MICROBIOLOGY ORD ERABLES Final Result [facility] [address] [place] [address], [facility] [phone] * HIV-1 HIV-2 ANTIBODY + HIV P24 AG PANEL (09/28/2017 11:38 AM CDT) HIV1/2 Ab + P24 Ag Non Reactive Non Reactive 09/28/2017 4:56 PM CDT [facility] Blood BLOOD SPECIMEN / Unknown Venipuncture / Unknown 09/28/2017 11:38 AM CDT 09/28/2017 11:50 AM CDT Narrative [facility] - 09/28/2017 4:56 PM CDT No Laboratory evidence of HIV infection. Gissell Kaminski SUPERVISOR [employer] [facility] - CHEMISTRY ORDERAB LES Final Result Performing Organization Address City/[facility]/ZIP Co de Phone Number [facility] [address] [place] [phone] * GLUCOSE CHALLENGE (09/28/2017 11:38 AM CDT) Glucose Challenge 110 64 - 140 mg/dL 09/28/2017 12:14 PM CDT [facility] Glucose Challenge Time 1 hr 09/28/2017 12:14 PM CDT [facility] Blood BLOOD SPECIMEN / Unknown Venipuncture / Unknown 09/28/2017 11:38 AM CDT 09/28/2017 11:51 AM CDT Gissell Kaminski SUPERVISOR [employer] [facility] - CHEMISTRY ORDERAB LES Final Result [facility] [address] [place] [address] * HEPATITIS C ANTIBODY (09/28/2017 11:38 AM CDT) HCV Antibody Screen Non Reactive Non Reactive 09/28/2017 1:05 PM CDT [facility] HCV S/C Ratio 0.11 0.00 - 0.79 09/28/2017 1:05 PM CDT [facility] Comment: Pqgioo-tm-gbuscz ratio (S/CO) <0.80: Non Reactive Blood BLOOD SPECIMEN / Unknown Venipuncture / Unknown 09/28/2017 11:38 AM CDT 09/28/2017 11:50 AM CDT Narrative [facility] - 09/28/2017 1:05 PM CDT Non Reactive - Antibodies to Hepatitis C virus (HCV) were not detected, result does not exclude early acute HCV infection. Gissell Kaminski SUPERVISOR [employer] [facility] - CHEMISTRY ORDERAB LES Final Result Performing Organization Address City/State/[facility] de Phone Number [facility] [address] [place], [place] [id number] from Last 3 Months or Most Recently Relevant to Health Maintenance Insurance MEDICAID - [place] [facility] MEDICARE MANAGED CARE PLAN GENERIC [...] 9:51 AM 07/06/2017 3:23 PM Care Teams Air And Hydronic Balancing Technician Relationship Specialty Start Date End Date Caren Anderson MD [address] [place] [id number] PCP - General 07/21/17
--- NOTE | 2024-10-30 16:06 | ED.FEMALEGU ---
HPI - Female Genitourinary General Chief complaint: Vaginal Bleeding Stated complaint: I've been having my period for a month Time Seen by Provider: 10/30/24 15:51 History of Present Illness HPI Narrative: Patient is a 34-year-old female who presents to the ER with complaints migraine that has been going on ?all weekend, heavy menstrual bleeding x 1 month, and sores on her tongue/mouth. She reports she had a baby approximately 8 months ago. Patient is on control and has been seen by her OBGYN recently. She reports she is going through approximately 5 pads per day and endorses vaginal clots. Patient reports her headache is a 10/10. She reports she has had a head CT scan in the past. Patient endorses a history of migraines, high blood pressure, and gastric reflux disease. She denies any chest pain, back pain shortness of breath, or recent fevers. Related Data Home Medications ?Medication ?Instructions ?Recorded ?Confirmed ?Last Taken ?Type acyclovir 400 mg tablet mg 05/16/24 Unknown History Allergies Allergy/AdvReac Type Severity Reaction Status Date / Time Penicillins Allergy Hives Verified 05/16/24 17:57 Review of Systems Review of Systems: All systems reviewed & are unremarkable except as noted in HPI and below PMFSH Social History Social History Smoking status: Never smoker Substance use: never Do You Feel Safe in your Home?: Yes Lack of Transportation: No Lack of Food: Never True Current Housing: I Have Housing Concerned About Future Housing: No Difficulty Paying Gas/Electric Bills: No Difficulty Paying for Meds: No Currently Unemployed: No Education: Grade School Difficulty w/ Childcare or Family Care: No Spiritual care concerns: No Exam Narrative: GENERAL: Well appearing, well-nourished, non-toxic, in no acute distress. HEAD: Normocephalic, atraumatic. Two is able canker sores, 1 on tongue, and 1 left inner cheek NECK: Supple. No adenopathy, no masses. RESPIRATORY: Airway patent, respirations nonlabored. Clear to auscultation bilaterally, no rales, rhonchi, wheezing. CARDIOVASCULAR: Regular rate and rhythm without murmurs, rubs, or gallops. Peripheral pulses 2+ and equal bilaterally. ABDOMINAL: Soft, nontender, nondistended, no hepatosplenomegaly. Normoactive BS. MUSCULOSKELETAL: Moves all extremities. Strength/ROM intact without gross deformities. SKIN: Warm, dry, normal color. No rashes. NEURO: A&O X3. Speech clear. Cranial nerves II-XII intact. No ataxic movements. PSYCHIATRIC: Appropriate mood and affect. Normal interaction. Course Vital Signs Vital signs: Vital Signs Temperature 36.6 C 10/30/24 13:43 Pulse Rate 82 10/30/24 13:43 Respiratory Rate 16 10/30/24 13:43 Blood Pressure 121/87 10/30/24 13:43 Pulse Oximetry 100 10/30/24 13:43 Oxygen Delivery Room Air 10/30/24 13:43 Temperature 36.6 C 10/30/24 13:43 Pulse Rate 75 10/30/24 14:30 Respiratory Rate 16 10/30/24 14:30 Blood Pressure 121/100 H 10/30/24 14:30 Pulse Oximetry 100 10/30/24 14:30 Oxygen Delivery Room Air 10/30/24 14:30 MDM - Female Genitourinary MDM Narrative Medical decision making narrative: Patient is a 34-year-old female who presents to the ER with complaints migraine that has been going on ?all weekend, heavy menstrual bleeding x 1 month, and sores on her tongue/mouth. She reports she had a baby approximately 8 months ago. Patient is on control and has been seen by her OBGYN recently. She reports she is going through approximately 5 pads per day and endorses vaginal clots. Patient reports her headache is a 10/10. She reports she has had a head CT scan in the past. Patient endorses a history of migraines, high blood pressure, and gastric reflux disease. She denies any chest pain, back pain shortness of breath, or recent fevers. Labs Ordered: CBC, CMP, UA, bedside Imaging Ordered: Pelvic ultrasound, Pt's head CT scan was performed approximately 1 1/2 years ago and pt does not meet criteria for another head CT scan. Medications Ordered: 1 L normal saline IV bolus, Benadryl IV, Reglan IV, Decadron IV, viscous lidocaine (dab) Results: Patient's pelvic ultrasound indicates Normal pelvic sonogram findings. Diagnosis: Migraine headache, irregular vaginal bleeding, canker sores Consults: OBGYN (outpatient) Patient Education/Shared MDM: Results of lab work and imaging shared with patient. She endorses improvement of symptoms following medication administration. Patient strongly advised to maintain hydration status upon discharge and follow-up with her PCP and OBGYN as soon as possible. She is already established with an OBGYN. Pt will be discharged home with a prescription for viscous lidocaine and ibuprofen 800mg PO. Strict return precautions provided. Patient verbalized understanding and is in agreement with plan. Vital signs stable at time of discharge. All questions answered. Differential Diagnosis Differential diagnosis: Likely urinary tract infection and other (Migraine headache, abnormal vaginal bleeding) Lab Data Attestation: I reviewed the patient's lab results. 10/30/24 15:03 10/30/24 15:03 Labs: Lab Results 10/30/24 10/30/24 Range/Units 15:03 15:07 WBC 9.5 (4.5-10.0) K/mm3 RBC 4.07 L (4.2-5.4) M/mm3 Hgb 11.8 L (12.0-15.0) g/dL Hct 34.3 L (37.0-47.0) % MCV 84.3 (80-100) fl MCH 29.0 (26-34) pg MCHC 34.4 (32-36) g/dl RDW 16.1 H (11.5-14.5) % Plt Count 281 (150-375) k/mm3 MPV 12.1 H (7.4-10.4) fl Immature Gran % (Auto) 0.3 (0-0.5) % Neut % (Auto) 67.8 (45.5-73.1) % Lymph % (Auto) 21.8 (18.3-44.2) % [place] % (Auto) 6.2 (2.6-8.5) % Eos % (Auto) 3.4 (0-4.4) % Baso % (Auto) 0.5 (0.2-1.2) % Lymph # (Auto) 2.07 (0.9-3.2) K/mm3 [place] # (Auto) 0.6 (0.1-0.6) K/mm3 Eos # (Auto) 0.3 (0-0.3) K/mm3 Baso # (Auto) 0.1 (0.0-0.1) K/mm3 Abs Immat Gran (auto) 0.03 (0.00-0.031) K/mm3 Absolute Neuts (auto) 6.4 (1.3-6.7) K/mm3 Absolute Nucleated RBC 0.000 (0.0-0.012) K/mm3 Nucleated RBC % 0.0 (0.0-0.2) % % Immature Plt Fraction 10.5 (0.9-11.2) % Sodium 137 (137-145) mmol/L Potassium 4.3 (3.4-5.0) mmol/L Chloride 103 (98-107) mmol/L Carbon Dioxide 26 (22-30) mmol/L Anion Gap 8 (4-12) mmol/L BUN 9 (7-17) mg/dL Creatinine 0.68 L (0.7-1.0) mg/dL Estim Creat Clear Calc 130 ml/min Estimated GFR > 60 (59 - ) Glucose 85 (65-110) mg/dL Calcium 9.1 (8.4-10.2) mg/dL Total Bilirubin 0.6 (0.2-1.3) mg/dL AST 29 (14-36) U/L ALT 10 (6-35) U/L Alkaline Phosphatase 69 (38-126) U/L Total Protein 8.2 (6.3-8.2) g/dL Albumin 3.9 (3.5-5.1) g/dL Urine Color Yellow (Yellow) Urine Appearance Clear (Clear) Urine pH 7.0 (5.0-9.0) Ur Specific [place] 1.009 (1.001-1.035) Urine Protein Negative (Negative) mg/dL Urine Glucose (UA) Negative (Negative) mg/dL Urine Ketones Negative (Negative) mg/dL Ur Blood (Man) 2+ H (Negative) Urine Nitrate Negative (Negative) Urine Bilirubin Negative (Negative) Urine Urobilinogen 1.0 (<2.0) mg/dL Leukocyte Esterase Rfl 2+ H (Negative) ANA/UL Urine RBC 0-2 (0-2) /hpf Urine WBC 6-10 H (0-3) /hpf Ur Squamous Epith Cells Few (Few) /hpf Urine Bacteria None seen /hpf Urine Casts 0-2 POC Urine HCG, Qual Negative (Negative) Imaging Data Attestation: I personally reviewed and interpreted this imaging study as follows: Radiologist's impression: Impressions Pelvic/Transvag US 10/30/24 17:55 IMPRESSION: Normal pelvic sonogram findings. Discharge Plan Discharge Clinical Impression: Vaginal bleeding, Headache, Canker sores oral Patient Disposition: Home Condition: Stable Instructions: Antibiotic Form, Abnormal (Dysfunctional) Uterine Bleeding (ED), Migraine Headache (ED) Additional Instructions: Please return to the ER with any worsening symptoms. Follow-up with primary care provider as needed and your OBGYN as soon as possible. Take all medications as prescribed, including regularly scheduled medications. You may take ibuprofen 800 mg every 8 hours as needed. Please remember to stay hydrated. Patient Language: Prydein[place] Prescriptions: New lidocaine HCl [Lidocaine Viscous] 2 % solution 1 applic mucous membrane QID PRN (Reason: pain) Qty: 300 0RF ibuprofen 800 mg tablet 800 mg PO TID PRN (Reason: pain) Qty: 60 0RF No Action acyclovir 400 mg tablet clindamycin HCl 300 mg capsule 300 mg PO Q8H 7 Days Qty: 21 0RF hydrochlorothiazide 12.5 mg tablet 12.5 mg PO DAILY Qty: 30 0RF esomeprazole magnesium [Nexium] 40 mg capsule,delayed release(DR/EC) 40 mg PO DAILY Qty: 14 0RF nifedipine [Procardia XL] 30 mg tablet extended release 24hr 30 mg PO DAILY Qty: 60 0RF Follow-up/Referrals: PHYSICIAN,NURSE TECHNICIAN [Primary Care Provider] - Time of Disposition: 18:21
[2024-10-30] MEDS: SODIUM CHLORIDE 0.9% IV 1,000 ML 999 ML IV CONT (16:21)
[2024-10-30] MEDS: LIDOCAINE 2% VISC SOLN 15 ML UDC PO (16:22)
[2024-10-30] MEDS: dexAMETHasone SOD PHOS INJ 10 MG/ML 1 ML VIAL IV PUSH (16:26)
[2024-10-30] MEDS: METOCLOPRAMIDE HCL INJ 10 MG/2 ML VIAL IV PUSH (16:27)
[2024-10-30 18:44] VITALS: BP 119/83; PULSE 80; RESP 17; O2SAT 100
== END 2024-10-30 18:45 | disposition home or self-care (01) ==
PROVIDERS: Emergency Medicine; Emergency Provider Registered Nurse
DX: R51.9 Headache, unspecified (principal); N93.9 Abnormal uterine and vaginal bleeding, unspecified; K12.0 Recurrent oral aphthae; Z79.3 Long term (current) use of hormonal contraceptives
CPT/HCPCS: 36415; 76830; 76856; 80053; 81001; 81025; 85025; 85055; 87086; 96361; 96374; 96375; 99284; J1100; J1200; J2765; J7030